=== PATIENT | male | born 1975 | race Hispanic/Latino ===

== ENCOUNTER 2018-02-09 20:34 | Emergency (ER) | payer OTHER ==
[~2018-02-09] VITALS: Ht 162.6 cm; Wt 84.4 kg
[2018-02-09] MEDS ORDERED: DILTIAZEM HCL 5 MG/ML 5 ML VIAL IV ONE (21:00)
[2018-02-09] MEDS ORDERED: VITAMIN D1000 UNI1 PO (21:48)
[2018-02-09] MEDS ORDERED: LEVETIRACETAM500 MG PO (21:48)
[2018-02-09] MEDS ORDERED: DIGOXIN125 MCG PO (21:48)
[2018-02-09] MEDS ORDERED: ASPIRIN81 MG PO (21:48)
[2018-02-09] MEDS ORDERED: ATORVASTATIN CA20 MG PO (21:48)
[2018-02-09] MEDS ORDERED: ENTRESTO PO (21:48)
--- NOTE | 2018-02-09 22:51 | Diagnostic Imaging Report ---
EXAMINATION: CXR 1 W - [facility] INDICATION: Dizziness since morning COMPARISON: None FINDINGS: TUBES and LINES: AICD is intact. LUNGS: Lungs are not well inflated. Lungs are clear. There is no evidence of pneumonia or pulmonary edema. PLEURA: No pleural effusion or pneumothorax. HEART AND MEDIASTINUM: The cardiomediastinal silhouette is unremarkable. BONES AND SOFT TISSUES: No acute osseous lesion. Soft tissues are unremarkable. UPPER ABDOMEN: No free air under the diaphragm. IMPRESSION: No acute thoracic abnormality. Signed by: Dr. Harshad Callejas M.D. on 02/09/2018 10:48 PM
--- OUTSIDE RECORDS SUMMARY | 2018-02-18 11:49 | XMS REPORT | Clinical Summary ---
Author Author AMALIA [facility] Address Unknown Phone Unavailable Care Team Providers Care Blender Helper Name Role Phone PCP Unavailable Allergies No Known Allergies Current Medications Prescription Sig. Disp. Refills Start End Date Status Date digoxin (LANOXIN) 0.125 Take 125 mcg by mouth Active MG tablet nightly. atorvastatin (LIPITOR) 80 Take 1 tablet (80 mg 0 12/13/19 12/13/19 Active MG tablet total) by mouth nightly. 18 19 levETIRAcetam (KEPPRA) Take 1 tablet (1,000 mg 0 12/13/19 12/13/19 Active 1000 MG tablet total) by mouth 2 (two) 18 19 times daily. sacubitril-valsartan Take 0.5 tablets by mouth 0 12/13/19 Active (ENTRESTO) 24-26 mg Tab 2 (two) times daily. 18 lactulose (CHRONULAC) 20 Take 15 mLs (10 g total) 0 12/14/19 Active gram/30 mL solution by mouth 3 (three) times 18 daily as needed. amiodarone (PACERONE) 200 Take 1 tablet (200 mg 30 tablet 0 02/18/20 02/18/20 Active MG tablet total) by mouth 2 (two) 18 19 times daily. apixaban (ELIQUIS) 2.5 mg Take 1 tablet (2.5 mg 60 tablet 0 02/21/20 03/23/20 Active Tab tablet total) by mouth 2 (two) 18 18 times daily for 30 days. metoprolol (TOPROL-XL) 50 Take 50 mg by mouth daily 12/13/19 Discontin MG 24 hr tablet 25mg in the morning and 18 ued 50mg at night. . sacubitril-valsartan Take 1 tablet by mouth 2 12/13/19 Discontin (ENTRESTO) 97-103 mg Tab (two) times daily. 18 ued aspirin 81 MG EC tablet Take 81 mg by mouth 02/18/20 Discontin daily. 18 ued mINOCYCLine Take 1 capsule (100 mg 10 capsule 0 11/15/19 11/20/19 (MINOCIN,DYNACIN) 100 MG total) by mouth every 12 18 18 capsule (twelve) hours for 5 days. acetaminophen-codeine Take 1 tablet by mouth 15 tablet 0 11/15/19 11/20/19 (TYLENOL #4) 300-60 mg every 4 (four) hours as 18 18 per tablet needed for Pain for up to 5 days. Max Daily Amount: 6 tablets aluminum & magnesium Take 30 mLs by mouth 355 mL 0 12/13/19 12/23/19 hydroxide-simethicone every 4 (four) hours as 18 18 (MAALOX PLUS) 400-400-40 needed for Indigestion mg/5 mL suspension for up to 10 days. bisacodyl (DULCOLAX) 5 mg Take 2 tablets (10 mg 30 tablet 0 12/13/19 01/12/20 EC tablet total) by mouth daily as 18 18 needed for Constipation for up to 30 days. docusate sodium (COLACE) Take 1 capsule (100 mg 10 capsule 0 12/13/19 12/23/19 100 MG capsule total) by mouth 2 (two) 18 18 times daily for 10 days. fluticasone (FLONASE) 50 1 spray by Nasal route 9.9 mL 0 12/14/19 02/16/20 Discontin mcg/actuation nasal spray daily. 18 18 ued HYDROcodone-acetaminophen Take 1 tablet by mouth 30 tablet 0 12/13/19 12/23/19 (NORCO 5-325) 5-325 mg every 4 (four) hours as 18 18 per tablet needed for up to 10 days. Max Daily Amount: 6 tablets polyethylene glycol Take 17 g by mouth daily 14 each 0 12/14/19 12/17/19 (GLYCOLAX) 17 gram packet for 3 days. 18 18 metoprolol (TOPROL-XL) 25 Take 1 tablet (25 mg 30 tablet 0 02/18/20 02/18/20 Discontin MG 24 hr tablet total) by mouth 2 (two) 18 18 ued times daily. Active Problems Problem Noted Date Paroxysmal atrial fibrillation ([facility]) 02/11/2018 Atrial flutter with rapid ventricular response ([facility]) 02/10/2018 Personal history of cerebrovascular accident with current residual effects 02/10/2018 Demand ischemia of myocardium ([facility]) 02/10/2018 Heart failure ([facility]) 02/09/2018 Seizure ([facility]) 12/05/2017 Chronic combined systolic and diastolic heart failure ([facility]) 12/05/2017 Obesity (BMI 30.0-34.9) 12/05/2017 Cerebral edema ([facility]) 11/29/2017 Non-ischemic cardiomyopathy ([facility]) 11/29/2017 Acute on chronic combined systolic and diastolic congestive heart failure 11/29/2017 ([facility]) Cerebrovascular accident (CVA) due to thrombosis of right middle cerebral 11/28/2017 artery ([facility]) Cardiomyopathy ([facility]) 11/13/2017 Resolved Problems Problem Noted Date Resolved Date Dysphagia 12/05/2017 02/10/2018 Hypokalemia 12/05/2017 02/10/2018 Acute ischemic stroke ([facility]) 11/29/2017 02/10/2018 Received tissue plasminogen activator (t-PA) less than 24 hours prior to 11/29/2017 02/10/2018 arrival Respiratory failure requiring intubation ([facility]) 11/29/2017 02/10/2018 Encounters Date Type Specialty Care Team Description 02/14/2018 Procedure Pass 02/14/2018 Surgery Michael Colon MD CRANIOPLASTY 02/13/2018 Anesthesia Avery Black MD Event 02/12/2018 Outside Orders Vianey Jensen, [employer]E CLASSIFIER TENDER, JOHNSON (obstructive sleep EDUCATIONAL/DEVELOPMENT ASSISTANT apnea) (Primary Dx);History of ischemic right MCA stroke 02/10/2018 Orders Only General Internal Medicine 02/09/2018 Hospital Intensive Care Ramin Rao MD Acute ischemic stroke - Encounter Larry, ([facility]);Acute on chronic 02/17/2018 MD Francine combined systolic and Nehemias Natarajan MD diastolic congestive heart failure ([facility]);Atrial flutter with rapid ventricular response ([facility]);Cerebral edema ([facility]);Cerebrovascular accident (CVA) due to thrombosis of right middle cerebral artery (HCC);Chronic combined systolic and diastolic heart failure (HCC);Demand ischemia of myocardium (HCC) 02/01/2018 [facility] Lucita Patel MD History of ischemic right Encounter MCA stroke 01/14/2018 Outside Orders Vianey Jensen, [employer]E CLASSIFIER TENDER, History of ischemic right EDUCATIONAL/DEVELOPMENT ASSISTANT MCA stroke (Primary Dx);JOHNSON (obstructive sleep apnea);Snoring 01/13/2018 Outside Orders Siddhartha Hernandez, [employer]E CLASSIFIER TENDER, EDUCATIONAL/DEVELOPMENT ASSISTANT History of ischemic right MCA stroke (Primary Dx) 11/28/2017 [facility] General Internal Medicine Demario Hopkins MD Cerebrovascular accident - Encounter Carmelo Flowers (CVA) due to thrombosis 12/13/2017 MD Braydon of right middle cerebral JovaniMagalie MD artery (HCC) (Primary Priscila Gonsalves MD Dx);Acute ischemic stroke Sami Christian (HCC);Acute on chronic MD Timo combined systolic and diastolic congestive heart failure (HCC);Cerebral edema (HCC);Non-ischemic cardiomyopathy (HCC);Received tissue plasminogen activator (t-PA) less than 24 hours prior to arrival;Respiratory failure requiring intubation (HCC);Dilated cardiomyopathy (HCC) 11/28/2017 Anesthesia Abby Echevarria MD Event 11/28/2017 Procedure Pass 11/28/2017 Surgery Michael Colon MD CRANIOTOMY 11/28/2017 Anesthesia Samira Dallas MD Event 11/28/2017 Procedure Pass 11/28/2017 Surgery Virtual, Surgeon PROCEDURE DONE OUTSIDE OR 11/13/2017 [facility] Cardiology Kathy Crooks Peripartum cardiomyopathy - Encounter MD Tresa 11/14/2017 11/13/2017 Orders Only General Internal Medicine 11/13/2017 Procedure Pass 11/13/2017 Surgery Kathy Crooks AICD GENERATOR & LEADS - MD Tresa INSERTION W/ GENERAL ANESTHESIA (SING/DUAL/MULT) 07/09/2017 [facility] Radiology Teja Nesbitt MD Acute on chronic combined Encounter systolic and diastolic heart failure (HCC) 06/25/2017 Outside Orders Central Scheduling Ramin Rao MD Acute on chronic combined systolic and diastolic heart failure (HCC) (Primary Dx) after 02/08/2017 Social History Tobacco Use Types Packs/Day Years Used Date Former Smoker Smokeless Tobacco: Never Used Tobacco Cessation: Ready to Quit: No Alcohol Use Drinks/Week oz/Week Comments Yes Sex Assigned at Date Recorded Not on file Last Filed Vital Signs Vital Sign Reading Time Taken Blood Pressure 90/54 02/17/2018 3:00 PM CDT Pulse 65 02/17/2018 3:22 PM CDT Temperature 36.9 C (98.4 F) 02/17/2018 12:00 PM CDT Respiratory Rate 20 02/17/2018 3:22 PM CDT Oxygen Saturation 98% 02/17/2018 3:22 PM CDT Inhaled Oxygen - - Concentration Weight 85.8 kg (189 lb 2.5 oz) 02/14/2018 1:35 PM CDT Height 162.6 cm (5' 4") 02/14/2018 1:35 PM CDT Body Mass Index 32.47 02/14/2018 1:35 PM CDT Plan of Treatment Not on file Implants Implanted Type Area Leather Production Artisan Device Expiration Model / Identifier Date Serial / Lot Mik Wilkinson Full Strlprep 10ml Cement/Ibrahima Right: GATES:BIOSCI 04/22/2019 [id number] / [id number] - [id number] ler/Adhesi Head / Implanted: Qty: 1 on 11/28/2017 by festus [id number] Michael Colon MD Flseal Vhsd Full Strlprep 10ml Cement/Ibrahima Right: GATES:BIOSCI 07/16/2019 [id number] / [id number] - [id number] ler/Adhesi Head / Implanted: Qty: 1 on 02/14/2018 by ve [id number] Michael Colon MD Lead Kendrick [place] Af Df4 59cm 0292 Defibrilla GUIDANT:CARDIAC 09/07/2019 0292 / - [id number] tors RHYTHM MGMT [id number] / Implanted: Qty: 1 on 11/13/2017 by [id number] Kathy Crooks MD Plt Str Un3 2h W/Tab [id number] - Fracture/F Right: GAB:CRANIOM 53- 70572 / [id number] ixation Head AXILLOFACIAL / Implanted: Qty: 1 on 02/14/2018 by Michael Colon MD Cvr Bur Hole Lp 20mm W/Tab [id number] Fracture/F Right: GAB:GAB [id number] / - [id number] ixation Head LEIBINGER / Implanted: Qty: 1 on 02/14/2018 by Michael Colon MD Cvr Bur Hole Lp 14mm W/Tab [id number] Fracture/F Right: GAB:GAB [id number] / - [id number] ixation Head LEIBINGER / Implanted: Qty: 1 on 02/14/2018 by Michael Colon MD Plt Rect Un3 [id number] - [id number] Fracture/F Right: GAB:CRANIOM 53- [id number] / Implanted: Qty: 1 on 02/14/2018 by ixation Head AXILLOFACIAL / Michael Colon MD Plt Rigid Str Un3 2h [id number] - Fracture/F Right: GAB:CRANIOM 53- 98474 / [id number] ixation Head AXILLOFACIAL / Implanted: Qty: 1 on 02/14/2018 by Michael Colon MD Scr Un3 Temple Self Drl 1.5x4mm Fracture/F Right: GAB:CRANIOM 56-97274 / [id number] - [id number] ixation Head AXILLOFACIAL / Implanted: Qty: 16 on 02/14/2018 by Michael Colon MD Grft Dura Cllgn Duragn 4x5in Neuro Right: INTEGRA 01/04/2020 [id number] / Id-4501 - [id number] Head LIFESCI:NEURO / Implanted: Qty: 1 on 11/28/2017 by [id number] Michael Colon MD Sheet Faith Imp 6x8in [id number] - Neuro Right: BENTEC MED 04/04/2022 [id number] Head N / Implanted: Qty: 1 on 11/28/2017 by / Michael Colon MD [id number] Acuity X4 Spiral S Pacemaker CALDWELL 03/11/2019 4674 / Implanted: Qty: 1 on 11/13/2017 by Lead SCIENTIFIC [id number] / Kathy Crooks MD [id number] Ld Pacing Ingevity Active 45 7740 Pacemaker CALDWELL 10/01/2019 7740 / - [id number] Lead SCI:CARDIAC [id number] / Implanted: Qty: 1 on 11/13/2017 by RHYTHM MNGT [id number] Kathy Crooks MD Dynagen X4 Lime Vat Tender-D CALDWELL 07/30/2019 G158 / Implanted: Qty: 1 on 11/13/2017 by SCIENTIFIC [id number] / Kathy Crooks MD [id number] Explanted Type Area Leather Production Artisan Device Expiration Model / Identifier Date Serial / Lot Cvr Bur Hole Lp 14mm W/Tab [id number] Fracture/F Right: GAB:GAB [id number] / - [id number] ixation Head LEIBINGER / Explanted: Qty: 1 on 02/14/2018 by Michael Colon MD Procedures Procedure Name Priority Date/Time Associated Diagnosis Comments CRANIOPLASTY 02/14/2018 S/P craniotomy 10:00 AM CDT Case Notes REQ 3 HOURS Special Needs (MICROSCOP E, C-ARM, STEALTH) CRITICAL CARE Routine 11/30/2017 Results for this 12:08 PM CDT procedure are in the results section. CRANIOTOMY 11/28/2017 Acute right MCA stroke 11:45 PM CDT (HCC) PROCEDURE DONE OUTSIDE OR 11/28/2017 Cerebrovascular accident 5:06 PM CDT (CVA), unspecified mechanism (HCC) AICD GENERATOR & LEADS - 11/13/2017 Eosinophilic myocarditis INSERTION W/ GENERAL 7:30 AM CDT ANESTHESIA (SING/DUAL/MULT) Case Notes 1CASE POP6 AICD GENTERATOR /LEADS INSERTION NO ANESTHESIA BIV Special Needs MAGGIE /BERYL after 02/08/2017 Results * CBC with platelet count + automated diff (02/17/2018 4:20 AM) Only the most recent of 16 results within the time period is included. Component Value Ref Range WBC 11.3 (H) 3.5 - 10.5 K/L RBC 4.35 (L) 4.63 - 6.08 M/L Hemoglobin 12.7 (L) 13.7 - 17.5 GM/DL Hematocrit 38.7 (L) 40.1 - 51.0 % MCV 89.0 79.0 - 92.2 fL MCH 29.2 25.7 - 32.2 pg MCHC 32.8 32.3 - 36.5 GM/DL RDW 12.3 11.6 - 14.4 % Platelets 274 150 - 450 K/CU MM MPV 9.7 9.4 - 12.4 fL nRBC 0 0 - 0 /100 WBC % Neutros 62 % % Lymphs 28 % % Monos 8 % % Eos 2 % % Baso 0 % # Neutros 6.98 (H) 1.78 - 5.38 K/L # Lymphs 3.10 1.32 - 3.57 K/L # Monos 0.91 (H) 0.30 - 0.82 K/L # Eos 0.23 0.04 - 0.54 K/L # Baso 0.03 0.01 - 0.08 K/L Immature 0 0 - 1 % Granulocytes-Relative Specimen Performing Laboratory Blood - Arm, [place] [address] * CBC with platelet count + automated diff (02/17/2018 4:20 AM) Only the most recent of 16 results within the time period is included. Specimen Performing Laboratory Blood Narrative The following orders were created for panel order CBC with platelet count + automated diff. Procedure Abnormality Status --------- ------ CBC with platelet count ...[[id number]]AbnormalFinal result Please view results for these tests on the individual orders. * Magnesium (02/17/2018 4:20 AM) Only the most recent of 13 results within the time period is included. Component Value Ref Range Magnesium 2.2 1.6 - 2.6 mg/dL Specimen Performing Laboratory Blood - Arm, [place] [address] * Basic Metabolic Panel (02/17/2018 4:20 AM) Only the most recent of 36 results within the time period is included. Component Value Ref Range Sodium 139 136 - 145 meq/L Potassium 3.8 3.5 - 5.1 meq/L Chloride 102 98 - 107 meq/L CO2 30 (H) 22 - 29 meq/L BUN 10 7 - 21 mg/dL Creatinine 0.84 0.57 - 1.25 mg/dL Glucose 99 70 - 105 mg/dL Calcium 9.1 8.4 - 10.2 mg/dL EGFR 100Comment: ESTIMATED GFR IS NOT ACCURATE mL/min/1.73 sq m CREATININE CLEARANCE IN PREDICTING GLOMERULAR FILTRATION RATE. ESTIMATED GFR IS NOT APPLICABLE FOR DIALYSIS PATIENTS. Specimen Performing Laboratory Blood - Arm, Right [address] [address] * Phosphorus (02/16/2018 3:16 AM) Only the most recent of 4 results within the time period is included. Component Value Ref Range Phosphorus 4.0 2.3 - 4.7 mg/dL Specimen Performing Laboratory Blood - Arm, Left [address] [address] * TRANSFUSION SERVICE REPORT - SCAN (02/15/2018 5:41 PM) Only the most recent of 4 results within the time period is included. * CT brain without IV contrast portable (02/15/2018 12:12 PM) Only the most recent of 3 results within the time period is included. Specimen Performing Laboratory GE RIS Narrative FINAL REPORT CT head without contrast INDICATION: Postop TECHNIQUE: Contiguous axial images through the head without contrast on the portable CT unit. This exam was performed according to our departmental dose optimization program which includes automated exposure control, adjustment of the mA and/or kV according to patient size and/or use of iterative reconstruction technique. COMPARISON: CT head 02/13/2018 FINDINGS: There has been replacement of a right craniectomy bone plate with a hemorrhagic extra axial collection beneath the bone plate measuring up to 7 mm and small foci of gas. A large chronic right MCA territory infarct is present. Please note that CT is insensitive for early or small infarcts. There is no hydrocephalus or midline shift. The visualized sinuses and mastoid air cells are well aerated. There are chronic nasal bone fractures. There is right sided scalp swelling with a soft tissue drain but no significant subgaleal fluid currently. IMPRESSION: Since 02/13/2018, interval craniectomy bone plate replacement with a subjacent hemorrhagic extra axial collection, but no worrisome current mass effect. Findings discussed with Dr. Carrizales (neurology ICU) at 1:17 PM Signed: Maty Hobbs MD Report Verified Date/Time:02/15/2018 13:18:32 Reading Location: [facility] C013 Neuro Reading Room Procedure Note Interface, External Ris In - 02/15/2018 1:20 PM CDT FINAL REPORT CT head without contrast INDICATION: Postop TECHNIQUE: Contiguous axial images through the head without contrast on the portable CT unit. This exam was performed according to our departmental dose optimization program which includes automated exposure control, adjustment of the mA and/or kV according to patient size and/or use of iterative reconstruction technique. COMPARISON: CT head 02/13/2018 FINDINGS: There has been replacement of a right craniectomy bone plate with a hemorrhagic extra axial collection beneath the bone plate measuring up to 7 mm and small foci of gas. A large chronic right MCA territory infarct is present. Please note that CT is insensitive for early or small infarcts. There is no hydrocephalus or midline shift. The visualized sinuses and mastoid air cells are well aerated. There are chronic nasal bone fractures. There is right sided scalp swelling with a soft tissue drain but no significant subgaleal fluid currently. IMPRESSION: Since 02/13/2018, interval craniectomy bone plate replacement with a subjacent hemorrhagic extra axial collection, but no worrisome current mass effect. Findings discussed with Dr. Carrizales (neurology ICU) at 1:17 PM Signed: Maty Hobbs MD Report Verified Date/Time: 02/15/2018 13:18:32 Reading Location: [address] Neuro Reading Room * CBC (Hemogram only) (02/15/2018 3:57 AM) Only the most recent of 4 results within the time period is included. Component Value Ref Range WBC 13.2 (H) 3.5 - 10.5 K/L RBC 4.43 (L) 4.63 - 6.08 M/L Hemoglobin 13.2 (L) 13.7 - 17.5 GM/DL Hematocrit 38.9 (L) 40.1 - 51.0 % MCV 87.8 79.0 - 92.2 fL MCH 29.8 25.7 - 32.2 pg MCHC 33.9 32.3 - 36.5 GM/DL RDW 12.0 11.6 - 14.4 % Platelets 275 150 - 450 K/CU MM MPV 10.1 9.4 - 12.4 fL nRBC 0 0 - 0 /100 WBC Specimen Performing Laboratory Blood [address] [address] * Prepare Leuko-Red PLT (02/14/2018 11:54 PM) Component Value Ref Range Unit ABO A Pos UNIT NUMBER [id number] Status TRANSFUSED Blood Bank Product PLATELETS PRODUCT CODE [id number] Specimen Performing Laboratory Blood SAFETRACE [place] * Surgically obtained culture + gram stain (02/14/2018 11:12 AM) Only the most recent of 2 results within the time period is included. Component Value Ref Range Result No growth Gram Stain Result No White blood cells seen Gram Stain Result No organisms seen Specimen Performing Laboratory Other - Head [address] [address] * SPIN/CONCENTRATION CHARGE (02/14/2018 11:12 AM) Component Value Ref Range Concentration charged Done Specimen Performing Laboratory Other - Head [address] [address] * aPTT (02/14/2018 4:46 AM) Only the most recent of 4 results within the time period is included. Component Value Ref Range PTT 28.7 22.5 - 36.0 seconds Specimen Performing Laboratory Blood - Arm, [address] [address] * Prothrombin time/INR (02/14/2018 4:46 AM) Only the most recent of 5 results within the time period is included. Component Value Ref Range Protime 13.9 11.7 - 14.7 seconds INR 1.1 <=5.9 Specimen Performing Laboratory Blood - Arm, [address] [address] Narrative RECOMMENDED COUMADIN/WARFARIN INR THERAPY RANGES STANDARD DOSE: 2.0 - 3.0 Includes: PROPHYLAXIS for venous thrombosis, systemic embolization; TREATMENT for venous thrombosis and/or pulmonary embolus. HIGH RISK: Target INR is 2.5-3.5 for patients with mechanical heart valves. * Transfuse Leuko-Red PLT (02/13/2018 7:54 PM) Only the most recent of 2 results within the time period is included. * CT brain without IV contrast (02/13/2018 5:16 PM) Specimen Performing Laboratory GE RIS Narrative FINAL REPORT CT head without contrast 02/13/2018 5:24 PM CLINICAL HISTORY: preop - cranioplasty TECHNIQUE: Axial noncontrast CT images through the head were obtained. This examination was performed according to our departmental dose optimization program, which includes automated exposure control, adjustment of the mA and/or kV according to patient size, and/or use of iterated reconstruction technique. COMPARISON: 11/29/2017 FINDINGS: There is a now chronic large volume right middle cerebral artery distribution infarction without mass effect. There is no overlying decompressive craniectomy with associated nonhemorrhagic subgaleal collection. There is no hemorrhage, mass, hydrocephalus, concerning subdural collection, or midline shift. The visualized paranasal sinuses and tympanomastoid cavities are well-aerated. There are chronic bilateral nasal bone fracture deformities. IMPRESSION: No intracranial hemorrhage or mass effect. Chronic appearing ischemic and postsurgical changes. If concern for acute pathology persists, further evaluation with MRI is recommended. Signed: Tae Olivares MD Report Verified Date/Time:02/13/2018 17:25:16 Reading Location: [facility] Radiology Reading Room Procedure Note Interface, External Ris In - 02/13/2018 5:27 PM CDT FINAL REPORT CT head without contrast 02/13/2018 5:24 PM CLINICAL HISTORY: preop - cranioplasty TECHNIQUE: Axial noncontrast CT images through the head were obtained. This examination was performed according to our departmental dose optimization program, which includes automated exposure control, adjustment of the mA and/or kV according to patient size, and/or use of iterated reconstruction technique. COMPARISON: 11/29/2017 FINDINGS: There is a now chronic large volume right middle cerebral artery distribution infarction without mass effect. There is no overlying decompressive craniectomy with associated nonhemorrhagic subgaleal collection. There is no hemorrhage, mass, hydrocephalus, concerning subdural collection, or midline shift. The visualized paranasal sinuses and tympanomastoid cavities are well-aerated. There are chronic bilateral nasal bone fracture deformities. IMPRESSION: No intracranial hemorrhage or mass effect. Chronic appearing ischemic and postsurgical changes. If concern for acute pathology persists, further evaluation with MRI is recommended. Signed: Tae Olivares MD Report Verified Date/Time: 02/13/2018 17:25:16 Reading Location: [facility] Radiology Reading Room * POLYSOMNOGRAPHY REPORT - SCAN (02/13/2018 10:11 AM) Only the most recent of 2 results within the time period is included. * Type and screen, automated (02/13/2018 4:55 AM) Only the most recent of 2 results within the time period is included. Component Value Ref Range ABO/RH AUTOMATED (BEAKER) A POSITIVE Ab Scrn NEGATIVE Specimen Performing Laboratory Blood - Arm, Right [address] [address] * ECHOCARDIOGRAM REPORT - SCAN (02/12/2018 6:20 PM) Only the most recent of 2 results within the time period is included. * 2D Echo W/Doppler(CW/PW/Color) (02/12/2018 11:40 AM) Only the most recent of 2 results within the time period is included. 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 Clinical History CARDIAC CATH, CHF, AICD 11/13/17 Height: 64 inches Weight: 81.19 kg (179 lbs) BSA: 1.87 m^2 BMI: 30.72 kg/m^2 HR: 60 bpm BP: 98/55 mmHg Summary 1. The following segment(s) appear severely hypokinetic: inferoseptal, inferior and inferolateral LVEF by Garvin's method of disk assessment is -moderately reduced (30-35%) . 2. The right ventricular chamber size and systolic function are within normal limits. RV pacing wire is visualized . Previous Study In comparison with the prior exam 11/28/2017 no significant change. Signature Findings Left Ventricle The left ventricle is chamber size (by PSLAX dimension) is normal (male - LVIDd 4.2-5.8cm) . LV septal thickness is mildly increased (1.2-1.4cm). All of the LV segments are moderately hypokinetic . The following segment(s) appear severely hypokinetic: inferoseptal, inferior and inferolateral LV diastolic function is indeterminate. LVEF by Garvin's method of disk assessment is -moderately reduced (30-35%) . Left AtriumLA size is normal (16-34 ml/m2) . Right VentricleThe right ventricular chamber size and systolic function are within normal limits. RV pacing wire is visualized . Right Atrium RA size is normal. RA pacing wire is visualized . Aortic Valve Mild AoV cusp calcification. Mitral Valve Mild MV leaflet thickening. Mild mitral annular calcification. Mild mitral regurgitation. Tricuspid ValveMild tricuspid regurgitation. Estimated peak systolic PA pressure is cannot be determined due to inadequate TR velocity signal . Pulmonic Valve Normal PV structure and function by limited views and Doppler. Mild pulmonary regurgitation. AortaAortic root size (SInus of Valsalva diameter) is normal . PericardiumA small pericardial effusion is present . (posterior to LV) IVC/SVC/PA/PV/PleuralThe estimated RA pressure by IVC dynamics 5mmHg . Chambers/Structures Left Atrium LA Volume: 45.7 mlLA Area: 18.69 cm^2 LA Vol. Index: 24 ml/m^2 Left Ventricle LVIDd: 5.59 cm LVIDs: 4.42 cm LV Septum Diastolic: 1.33 cm LV PW Diastolic: 0.9 cm LV FS: 20.9 % LVEDV Garvin's:109.89 ml LVEDVI: 59 ml/m^2 LVOT Diameter: 2.44 cm Aorta Ao Root S of Ava.: 2.76 cm Doppler/Quantitative Measurements Mitral Valve MV Geremias. Peak: Tissue Doppler E' Septal Velocity: 0.03 m/s E' Lateral Velocity: 0.04 m/s LVOT Peak Velocity: 0.75 m/s Peak Gradient: 2.23 mmHg Mean Velocity: 0.54 m/s Mean Gradient: 1.33 mmHg LVOT Diameter: 2.44 cmLVOT VTI: 14.03 cm LVOT Area: 4.68 cm^2LVOT SV:65.57 ml LVOT CO: 3.93 l/min LVOT CI: 2.1 l/min/m^2 Procedure Note Interface, External Ris In - 02/12/2018 5:35 PM CDT Transthoracic Echocardiography Report (TTE) Demographics Patient Name BRENNEN JEFFERS Date of Study 02/12/2018 Gender Male Visit Number [id number] Race Unknown Room Number 2251 Number Date of 1975 Referring Physician Age 42 year(s) [employer] 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 Clinical History CARDIAC CATH, CHF, AICD 11/13/17 Height: 64 inches Weight: 81.19 kg (179 lbs) BSA: 1.87 m^2 BMI: 30.72 kg/m^2 HR: 60 bpm BP: 98/55 mmHg Summary 1. The following segment(s) appear severely hypokinetic: inferoseptal, inferior and inferolateral LVEF by Garvin's method of disk assessment is -moderately reduced (30-35%) . 2. The right ventricular chamber size and systolic function are within normal limits. RV pacing wire is visualized . Previous Study In comparison with the prior exam 11/28/2017 no significant change. Signature Findings Left Ventricle The left ventricle is chamber size (by PSLAX dimension) is normal (male - LVIDd 4.2-5.8cm) . LV septal thickness is mildly increased (1.2-1.4cm). All of the LV segments are moderately hypokinetic . The following segment(s) appear severely hypokinetic: inferoseptal, inferior and inferolateral LV diastolic function is indeterminate. LVEF by Garvin's method of disk assessment is -moderately reduced (30-35%) . Left Atrium LA size is normal (16-34 ml/m2) . Right Ventricle The right ventricular chamber size and systolic function are within normal limits. RV pacing wire is visualized . Right Atrium RA size is normal. RA pacing wire is visualized . Aortic Valve Mild AoV cusp calcification. Mitral Valve Mild MV leaflet thickening. Mild mitral annular calcification. Mild mitral regurgitation. Tricuspid Valve Mild tricuspid regurgitation. Estimated peak systolic PA pressure is cannot be determined due to inadequate TR velocity signal . Pulmonic Valve Normal PV structure and function by limited views and Doppler. Mild pulmonary regurgitation. Aorta Aortic root size (SInus of Valsalva diameter) is normal . Pericardium A small pericardial effusion is present . (posterior to LV) IVC/SVC/PA/PV/Pleural The estimated RA pressure by IVC dynamics 5mmHg . Chambers/Structures Left Atrium LA Volume: 45.7 ml LA Area: 18.69 cm^2 LA Vol. Index: 24 ml/m^2 Left Ventricle LVIDd: 5.59 cm LVIDs: 4.42 cm LV Septum Diastolic: 1.33 cm LV PW Diastolic: 0.9 cm LV FS: 20.9 % LVEDV Garvin's:109.89 ml LVEDVI: 59 ml/m^2 LVOT Diameter: 2.44 cm Aorta Ao Root S of Ava.: 2.76 cm Doppler/Quantitative Measurements Mitral Valve MV Geremias. Peak: Tissue Doppler E' Septal Velocity: 0.03 m/s E' Lateral Velocity: 0.04 m/s LVOT Peak Velocity: 0.75 m/s Peak Gradient: 2.23 mmHg Mean Velocity: 0.54 m/s Mean Gradient: 1.33 mmHg LVOT Diameter: 2.44 cm LVOT VTI: 14.03 cm LVOT Area: 4.68 cm^2 LVOT SV:65.57 ml LVOT CO: 3.93 l/min LVOT CI: 2.1 l/min/m^2 * Troponin I (02/10/2018 7:38 AM) Only the most recent of 7 results within the time period is included. Component Value Ref Range Troponin I 0.78 (HH) 0.00 - 0.03 ng/mL Specimen [place] [address] Narrative Troponin I (TnI) levels must be interpreted in the context of the presenting symptoms and the clinical findings. Elevated TnI levels indicate myocardial damage, but are not specific for ischemic heart disease. Elevated TnI levels are seen in patients with other cardiac conditions (including myocarditis and congestive heart failure), and slight TnI elevations occur in patients with other conditions, including sepsis, renal failure, acidosis, acute neurological disease, and persistent tachyarrhythmia. * XR chest 1 view portable / bedside (02/10/2018 1:46 AM) Only the most recent of 11 results within the time period is included. Specimen Performing Laboratory RIS Narrative FINAL REPORT Chest, 1 view. History: Chest pain Comparison: The The chest, 12/08/2017.. Impression: The cardiomediastinal silhouette and pulmonary vasculature are within normal limits for a portable exam. Left chest wall pacer device with leads overlying the right atrium, right ventricle and coronary sinus. Minimal left basilar discoid atelectasis. Otherwise the lungs are clear without evidence of consolidation or effusion.The soft tissues and osseous structures are intact. Signed: Winsome Reina MD Report Verified Date/Time:02/10/2018 02:01:21 Reading Location: [facility] C013 Transitional Reading Room Procedure Note Interface, External Ris In - 02/10/2018 2:03 AM CDT FINAL REPORT Chest, 1 view. History: Chest pain Comparison: The The chest, 12/08/2017.. Impression: The cardiomediastinal silhouette and pulmonary vasculature are within normal limits for a portable exam. Left chest wall pacer device with leads overlying the right atrium, right ventricle and coronary sinus. Minimal left basilar discoid atelectasis. Otherwise the lungs are clear without evidence of consolidation or effusion. The soft tissues and osseous structures are intact. Signed: Winsome Reina MD Report Verified Date/Time: 02/10/2018 02:01:21 Reading Location: [facility] Transitional Reading Room * Levetiracetam level (02/10/2018 1:16 AM) Component Value Ref Range Levetiracetam 20.5 mcg/mL Comment: Therapeutic Levels: Drug Dosage Trough (mcg/mL) Peak (mcg/mL) 500 mg BID3.1 - 10.0 10.0 - 25.0 1000 mg BID 4.9 - 37.1 30.0 - 40.0 1500 mg BID 7.0 - 34.0 36.1 - 70.0 Toxic level not established This test was developed and its analytical performance characteristics have been determined by [facility]. It has not been cleared or approved by the US Food and Drug Administration. This assay has been validated pursuant to the CLIA regulations and is used for clinical purposes. For additional information, please refer to http://education.[employer].Enabled Employment/faq/DWA239 (This link is being provided for informational/educational purposes only.) Specimen Performing Laboratory Blood [facility] [address] [place] [address] Narrative Performing Lab *SPL HOSTING [facility], [address] [place] [address] Rica Ferguson MD, PhD * Digoxin level (02/10/2018 1:16 AM) Only the most recent of 2 results within the time period is included. Component Value Ref Range Digoxin Lvl <0.3 (L) 0.8 - 2.0 ng/mL Specimen Performing Laboratory Blood [place] [id number] * ECG 12 lead (02/10/2018 12:20 AM) Only the most recent of 7 results within the time period is included. Specimen Performing Laboratory GE MUSE Narrative Ventricular Rate 66 BPM Atrial Rate 66 BPM P-R Interval 212 ms QRS Duration 182 ms Q-T Interval 458 ms QTC Calculation(Bazett) 480 ms P [place] 53 degrees R [place] 128 degrees T [place] 63 degrees Electronic ventricular pacemaker When compared with ECG of 30-NOV-2017 09:04, Vent. rate has decreased BY 6 BPM Confirmed by MD HALL JOSEPH P ([id number]) on 02/10/2018 7:04:51 AM Procedure Note Interface, External Ris In - 02/10/2018 7:04 AM CDT Ventricular Rate 66 BPM Atrial Rate 66 BPM P-R Interval 212 ms QRS Duration 182 ms Q-T Interval 458 ms QTC Calculation(Bazett) 480 ms P [place] 53 degrees R [place] 128 degrees T [place] 63 degrees Electronic ventricular pacemaker When compared with ECG of 30-NOV-2017 09:04, Vent. rate has decreased BY 6 BPM Confirmed by MD HALL JOSEPH P ([id number]) on 02/10/2018 7:04:51 AM * Potassium (02/10/2018 12:20 AM) Only the most recent of 4 results within the time period is included. Component Value Ref Range Potassium 3.5 3.5 - 5.1 meq/L Specimen Performing Laboratory Blood [address] [address] * B-type Natriuretic Factor (BNP) (02/10/2018 12:20 AM) Only the most recent of 3 results within the time period is included. Component Value Ref Range BNP 276 (H) 0 - 100 pg/mL Specimen Performing Laboratory Blood [address] [address] * Comprehensive metabolic panel (02/10/2018 12:20 AM) Only the most recent of 3 results within the time period is included. Component Value Ref Range Protein, Total 6.9 6.0 - 8.3 gm/dL Albumin 4.1 3.5 - 5.0 g/dL Alkaline Phosphatase 79 40 - 150 U/L Total Bilirubin 0.7 0.2 - 1.2 mg/dL Sodium 136 136 - 145 meq/L Potassium 3.5 3.5 - 5.1 meq/L Chloride 104 98 - 107 meq/L CO2 24 22 - 29 meq/L BUN 12 7 - 21 mg/dL Creatinine 0.88 0.57 - 1.25 mg/dL Glucose 140 (H) 70 - 105 mg/dL Calcium 8.9 8.4 - 10.2 mg/dL AST 19 5 - 34 U/L ALT 21 6 - 55 U/L EGFR 95Comment: ESTIMATED GFR IS NOT ACCURATE mL/min/1.73 sq m CREATININE CLEARANCE IN PREDICTING GLOMERULAR FILTRATION RATE. ESTIMATED GFR IS NOT APPLICABLE FOR DIALYSIS PATIENTS. Specimen Performing Laboratory Blood [address] [address] * ARRYTHMIA IMPLANT REPORT - SCAN (12/16/2017 11:23 AM) Only the most recent of 2 results within the time period is included. * RHYTHM STRIP - SCAN (12/16/2017 11:22 AM) Only the most recent of 2 results within the time period is included. * POC-Glucose meter (12/13/2017 8:07 AM) Only the most recent of 24 results within the time period is included. Component Value Ref Range POC-Glucose Meter 106Comment: TESTED AT [address] 70 - 110 mg/[place] [address] Specimen Performing Laboratory Blood [address] [address] * Venous doppler arm, left (12/06/2017 1:09 PM) Component Value Ref Range Ejection Fraction Specimen Performing Laboratory [facility]CHO [facility] Impressions Left Impression 1. There is no deep venous obstruction in the jugular, subclavian, axillary, brachial, radial or ulnar veins. 2. There is no superficial venous obstruction in the cephalic or basilic veins. Conclusions Summary Venous duplex imaging and compression of the left upper extremity was performed. The veins were adequately visualized. The left venous system was patent and compressible with no evidence of thrombus. Signature Velocities are measured in cm/s ; Diameters are measured in cm Narrative PV LAB - Upper Extremities Veins Demographics Patient Name Ever JEFFERS of Study 12/06/2017 [id number] 42 Visit Number [id number] Accession Number [id number] of 1975 [facility] Room Number 2242 Physician SonographerHeather Vidhya Bella Florinda Physician , JAY Procedure Type of Study: Veins: Upper Extremities Veins, VENOUS DOPPLER ARM, LEFT. Indications for Study:Arm edema, left greater than right and Evaluate for DVT. Patient Status:Routine. Study Location:Vascular Lab. Technical Quality:Adequate visualization. Risk Factors History of Disease + +----+ + !Diagnosis!Date!Comments ! + +----+ + !History/Risk Factors:!!CHF, CVA, Obesity, Smoker, CMP ! + +----+ + Procedure Note Interface, External Ris In - 12/06/2017 5:28 PM CDT PV LAB - Upper Extremities Veins Demographics Patient Name BRENNEN JEFFERS Date of Study 12/06/2017 Age 42 Visit Number [id number] Gender Male Accession Number [id number] Date of 1975 Referring JOVANI MYRICK Room Number 2242 Physician [employer] Experimental Mechanic Vidhya Christopher T Physician MD, RPVI Procedure Type of Study: Veins: Upper Extremities Veins, VENOUS DOPPLER ARM, LEFT. Indications for Study:Arm edema, left greater than right and Evaluate for DVT. Patient Status:Routine. Study Location:Vascular Lab. Technical Quality:Adequate visualization. Risk Factors History of Disease + +----+ + !Diagnosis !Date!Comments ! + +----+ + !History/Risk Factors: ! !CHF, CVA, Obesity, Smoker, CMP ! + +----+ + Impressions Left Impression 1. There is no deep venous obstruction in the jugular, subclavian, axillary, brachial, radial or ulnar veins. 2. There is no superficial venous obstruction in the cephalic or basilic veins. Conclusions Summary Venous duplex imaging and compression of the left upper extremity was performed. The veins were adequately visualized. The left venous system was patent and compressible with no evidence of thrombus. Signature Velocities are measured in cm/s ; Diameters are measured in cm * Vitamin B12 and Folate (12/06/2017 5:37 AM) Component Value Ref Range Vitamin B12 648 213 - 816 pg/mL Folate 11.5 >=7.0 ng/mL Specimen Performing Laboratory Blood - Arm, Left [address] [address] * Sodium lab (12/03/2017 12:03 PM) Only the most recent of 2 results within the time period is included. Component Value Ref Range Sodium 157 (H) 136 - 145 meq/L Specimen Performing Laboratory Blood - Central Venous [facility] [address] [place] [address] Narrative Draw sodium level 4 hours after hypertonic saline injection * Osmolality, serum (12/03/2017 12:03 PM) Only the most recent of 14 results within the time period is included. Component Value Ref Range Osmolality Serum 338 (H) 275 - 295 mOsm/kg Specimen Performing Laboratory Blood - Central Venous [facility] [address] [place] [address] * Phosphatidylserine Abs (IgG, IgM) (12/03/2017 9:51 AM) Component Value Ref Range Phos.Serine Ab IgG <10 U/mL Comment: <10 Negative 10-20Equivocal- Found in small percentage of the healthy population; may be reactive >20 Positive - Risk factor for thrombosis and loss PHOSPHATIDYLSERINE AB <25 U/mL (IGM) Comment: Clinical Significance: The Antiphospholipid Antibody Syndrome (APS) is a clinical pathologic correlation that includes a clinical event (e.g. thrombosis, loss, thrombocytopenia) and persistent positive Antiphospholipid Antibodies (IgM or IgG CHANCE >40 MPL/GPL, IgM or IgG anti-B2GP1 antibodies, or a Lupus Anticoagulant). The IgA isotype has been implicated in smaller studies, but have not yet been incorporated into the APS criteria. International consensus guidelines suggest waiting at least 12 weeks before retesting to confirm antibody persistence. Reference J Thromb Haemost 2006: 4; 295. <25 Negative 25-35Equivocal- Found in small percentage of the healthy population; may be reactive >35 Positive - Risk factor for thrombosis and loss For more information on this test, go to: http://education.[employer]/faq/LHQ825 Specimen Performing Laboratory Blood - Central Venous [facility] Line [address] [address] Narrative Performing Lab [facility] [address] [address] Marybel Jennings MD, PhD, MELANIE * 1:1 MIXING STUDY, NON-INCUBATED (12/03/2017 9:51 AM) Component Value Ref Range Protime 15.4 (H) 11.7 - 14.7 seconds PTT 32.6 22.5 - 36.0 seconds PT 1/1 Mix 14.2 11.7 - 14.7 SECS PTT 1/1 Mix 31.4 22.5 - 36.0 SECS Specimen Performing Laboratory Blood - Central Venous [facility] [address] [place], [place] * Homocysteine (12/03/2017 9:51 AM) Component Value Ref Range Homocysteine 8.1 5.1 - 15.4 umol/L Specimen Performing Laboratory Blood - Central Venous [facility] [address] [place] [address] * TSH/Free T4 If Indicated (12/03/2017 7:09 AM) Component Value Ref Range TSH 2.68 0.35 - 4.94 uIU/mL Specimen Performing Laboratory Blood [facility] [address] [address] * Venous doppler legs bilateral (12/02/2017 11:02 AM) Component Value Ref Range Ejection Fraction Specimen Performing Laboratory [facility] ECHO [facility]ART[facility] Impressions Right Impression 1. There is no deep venous obstruction in the common femoral, profunda femoral, femoral, popliteal, posterior tibial or peroneal veins. 2. There is no superficial venous obstruction in the great saphenous vein. Left Impression 1. There is no deep venous obstruction in the common femoral, profunda femoral, femoral, popliteal, posterior tibial or peroneal veins. 2. There is no superficial venous obstruction in the great saphenous vein. Conclusions Summary Venous duplex imaging and compression of the bilateral lower extremities were performed. The veins were adequately visualized. The bilateral venous systems were patent and compressible with no evidence of thrombus. The venous Doppler waveforms were phasic with respiration. Signature Velocities are measured in cm/s ; Diameters are measured in cm Narrative PV LAB - Lower Extremities DVT Study Demographics Patient Name Ever JEFFERS of Study 12/02/2017 [id number] Age 42 Visit Number [id number] of 1975 Number ReferringVenkatasubba [facility] Number [id number] Yojana LainezographBria Jeong RVTInterpretingJ. Francisco Javier Nash Physician , RPVI Procedure Type of Study: Veins: Lower Extremities DVT Study, VENOUS DOPPLER LEG, BILATERAL. Indications for Study:Evaluate for DVT. Patient Status:Routine. Study Location:Portable. Technical Quality:Adequate visualization. Risk Factors History of Disease + +----+--------+ !Diagnosis !Date!Comments! + +----+--------+ !History/Risk Factors: !!CHF ! + +----+--------+ Procedure Note Interface, External Ris In - 12/02/2017 12:42 PM CDT PV LAB - Lower Extremities DVT Study Demographics Patient Name BRENNEN JEFFERS Date of Study 12/02/2017 Age 42 Visit Number [id number] Gender Male Date of 1975 Number Referring [facility] Room Number 7407 Physician Sami [place] [employer] Experimental Mechanic Rosina Jeong T Interpreting Marcelle Nash, Physician , RPVI Procedure Type of Study: Veins: Lower Extremities DVT Study, VENOUS DOPPLER LEG, BILATERAL. Indications for Study:Evaluate for DVT. Patient Status:Routine. Study Location:Portable. Technical Quality:Adequate visualization. Risk Factors History of Disease + +----+--------+ !Diagnosis !Date!Comments! + +----+--------+ !History/Risk Factors: ! !CHF ! + +----+--------+ Impressions Right Impression 1. There is no deep venous obstruction in the common femoral, profunda femoral, femoral, popliteal, posterior tibial or peroneal veins. 2. There is no superficial venous obstruction in the great saphenous vein. Left Impression 1. There is no deep venous obstruction in the common femoral, profunda femoral, femoral, popliteal, posterior tibial or peroneal veins. 2. There is no superficial venous obstruction in the great saphenous vein. Conclusions Summary Venous duplex imaging and compression of the bilateral lower extremities were performed. The veins were adequately visualized. The bilateral venous systems were patent and compressible with no evidence of thrombus. The venous Doppler waveforms were phasic with respiration. Signature Velocities are measured in cm/s ; Diameters are measured in cm * Blood gas, arterial (12/02/2017 4:36 AM) Only the most recent of 4 results within the time period is included. Component Value Ref Range pH, Arterial 7.48 (H) 7.35 - 7.45 pCO2, Arterial 33 (L) 35 - 45 mmHg pO2, Arterial 206 (H) 80 - 90 mmHg O2 Sat, Arterial 99.5 (H) 96.0 - 97.0 % HCO3, Arterial 24 21 - 29 mmol/L Base Excess, Arterial 0.8 -2.0 - 3.0 mmol/L Patient Temperature 37.2 C FIO2 50.0 % Specimen Performing Laboratory Blood, [place] [address] * ED ECG Interpretation (11/30/2017 12:08 PM) Narrative Demario Hopkins MD 11/30/2017 12:08 PM ECG/EKG Interpretation Date/Time: 11/28/2017 1:40 PM Performed by: DEMARIO HOPKINS Authorized by: DEMARIO HOPKINS The ECG was interpreted by ED physician. The ECG is interpreted as paced. Heart rate is [address] segments normal. T waves normal. Clinical Impression: non-specific ECGECG reviewed and does not meet STEMI criteria. Patient tolerance: Patient tolerated the procedure well with no immediate complications * Critical Care (11/30/2017 12:08 PM) Narrative Demario Hopkins MD 11/30/2017 12:08 PM Critical Care Performed by: DEMARIO HOPKINS Authorized by: DEMARIO HOPKINS Total critical care time: 60 minutes Critical care time was exclusive of separately billable procedures and treating other patients and teaching time. Critical care was necessary to treat or prevent imminent or life-threatening deterioration of the following conditions: UNLOADER OPERATOR failure or compromise. Critical care was time spent personally by me on the following activities: blood draw for specimens, development of treatment plan with patient or surrogate, discussions with consultants, interpretation of cardiac output measurements, examination of patient, evaluation of patient's response to treatment, obtaining history from patient or surrogate, ordering and performing treatments and interventions, ordering and review of laboratory studies, ordering and review of radiographic studies, pulse oximetry, review of old charts and re-evaluation of patient's condition. * Urinalysis w/Microscopic + Reflex to Culture (11/30/2017 6:50 AM) Only the most recent of 2 results within the time period is included. Component Value Ref Range Color, UA [place] Clarity, UA Hazy Specific [place], UA 1.032 1.001 - 1.035 pH, UA 6.0 5.0 - 8.0 Protein, UA 100 mg/dL (A) Negative Glucose, UA Negative Negative Ketones, UA Trace (A) Negative Bilirubin, UA Negative Negative Blood, UA Large (A) Negative Nitrite, UA Negative Negative Leukocytes, UA Trace (A) Negative Urobilinogen, UA 0.2 0.2 - 1.0 mg/dL RBC, UA >182 /HPF WBC, UA 13 /HPF Mucus Rare Squam Epithel, UA <1 /HPF Specimen Source Specimen Performing Laboratory Urine - Urine, [address] [address] * Urine culture (11/30/2017 6:50 AM) Component Value Ref Range Result No growth Specimen Performing Laboratory Urine - [place], [place] [address] * Manual Differential (11/30/2017 4:13 AM) Component Value Ref Range % Neutros 85 % % Lymphs 7 % % Monos 6 % % Bands 2 0 - 10 % # Neutros 13.09 (H) 1.78 - 5.38 K/ul # Lymphs 1.08 (L) 1.32 - 3.57 K/ul # Monos 0.92 (H) 0.30 - 0.82 K/uL # Bands 0.31 0.00 - 0.80 K/uL Total Counted 100 WBC Morphology Normal Giant Platelet Present Anisocytosis 1+ few Macrocytes 1+ few Poikilocytes 1+ few Artifact Present Platelet Conc Adequate Specimen [place] [address] Narrative Received comment: User comments: Slide comments: * Prepare cryoprecipitate (11/29/2017 11:55 PM) Component Value Ref Range Unit ABO A Pos UNIT NUMBER [id number] Status TRANSFUSED Blood Bank Product CRYOPRECIPITATE PRODUCT CODE D5251T47 Unit ABO A Pos UNIT NUMBER [id number] Status TRANSFUSED Blood Bank Product CRYOPRECIPITATE PRODUCT CODE [id number] Specimen Performing Laboratory Blood [place] * Sputum Culture + Gram Stain (11/29/2017 3:25 PM) Component Value Ref Range Result No growth Gram Stain Result 4+ White blood cells seen Gram Stain Result 0-5 epithelial cells Gram Stain Result No organisms seen Specimen Performing Laboratory Sputum - Endotracheal [address] [address] * Blood culture (11/29/2017 3:24 PM) Only the most recent of 2 results within the time period is included. Component Value Ref Range Result No growth in 5 days Specimen Performing Laboratory Blood - Central Venous [facility] Line [address] [place] [address] * XR abdomen / KUB 1 view (11/29/2017 11:52 AM) Specimen Performing Laboratory GE RIS Narrative FINAL REPORT CLINICAL HISTORY: core pack TECHNIQUE: Supine abdomen IMPRESSION: The tip of the feeding tube is in the distal stomach. There is a nasogastric tube in the fundus. The partially visualized bowel gas pattern is nonspecific. Signed: Isaias Tovar MD Report Verified Date/Time:11/29/2017 13:01:44 Reading Location: [facility] Radiology Reading Room Procedure Note Interface, External Ris In - 11/29/2017 1:04 PM CDT FINAL REPORT CLINICAL HISTORY: core pack TECHNIQUE: Supine abdomen IMPRESSION: The tip of the feeding tube is in the distal stomach. There is a nasogastric tube in the fundus. The partially visualized bowel gas pattern is nonspecific. Signed: Isaias Tovar MD Report Verified Date/Time: 11/29/2017 13:01:44 Reading Location: [facility] Radiology Reading Room * Hemoglobin A1c - Fasting (11/29/2017 4:34 AM) Component Value Ref Range Hemoglobin A1C 5.6 4.3 - 6.1 % Specimen Performing Laboratory Blood - Line, Arterial [address] [address] * Fasting lipid panel (11/29/2017 4:34 AM) Component Value Ref Range Triglycerides 214 mg/dL Cholesterol 233 mg/dL HDL 38 mg/dL LDL Calculated 152 mg/dL Specimen Performing Laboratory Blood - Line, Arterial [address] [address] Narrative Triglyceride Reference Range: Low Risk <150 [id number] High Risk 200-499 Very High Risk>=500 Cholesterol Reference Range: Low Risk <200 [id number] High Risk>240 HDL Cholesterol Reference Range: Low Risk >=60 High Risk <40 LDL Cholesterol Reference Range: Optimal<100 Near [id number] Very High >=190 Fasting * Anaerobic culture (11/29/2017 1:58 AM) Component Value Ref Range Result No anaerobes isolated Specimen Performing [place] [address] * Transfuse cryoprecipitate (11/28/2017 11:57 PM) Only the most recent of 3 results within the time period is included. * Fibrinogen (11/28/2017 10:23 PM) Component Value Ref Range Fibrinogen 109 (L) 225 - 434 mg/dl Specimen Performing Laboratory Blood - Arm, [place] [address] * RPR (11/28/2017 8:49 PM) Component Value Ref Range RPR Nonreactive Nonreactive Specimen Performing Laboratory Blood - Arm, [place] [address] * Hepatic function panel (11/28/2017 8:49 PM) Component Value Ref Range Protein, Total 6.7Comment: Specimen slightly hemolyzed 6.0 - 8.3 gm/dL Albumin 3.8Comment: Specimen slightly hemolyzed 3.5 - 5.0 g/dL Total Bilirubin 0.3Comment: Specimen slightly hemolyzed 0.2 - 1.2 mg/dL Bilirubin, Direct 0.1Comment: Specimen slightly hemolyzed 0.1 - 0.5 mg/dL Alkaline Phosphatase 63 40 - 150 U/L AST 32Comment: Specimen slightly hemolyzed 5 - 34 U/L ALT 35Comment: Specimen slightly hemolyzed 6 - 55 U/L Specimen Performing Laboratory Blood - Arm, [place] [address] * NV cerebral 4 vessel angiogram (11/28/2017 6:12 PM) Specimen Performing Laboratory GE RIS Narrative FINAL REPORT DATE OF PROCEDURE: 11/08/2017 SURGEON:Elfego Ortiz MD ACTIVATED SLUDGE ATTENDANT: Stephen Delvalle MD PREOPERATIVE DIAGNOSIS:Acute right MCA stroke, right ICA terminus and M1 occlusion POSTOPERATIVE DIAGNOSIS: Acute Acute right MCA stroke, right ICA terminus and M1 occlusion PROCEDURE PERFORMED: 1. Diagnostic Angiogram 2. Right ICA and MCA mechanical thrombectomy with proximal balloon occlusion 3. Intra-arterial verapamil infusion (10mg over 10min) ANESTHESIA: MAC COMPLICATIONS: None ESTIMATED BLOOD LOSS: Less than 20ml VESSELS STUDIED: *Right common carotid artery x 1 *Right internal carotid artery x >10 *Right middle cerebral microangiogram x1 *Right common femoral artery x1 MATERIALS EMPLOYED: 1. 8 Scottish short sheath 2. 5 Scottish 125cm diagnostic catheter 3. [employer] guidewire 4. Terumo 0.035 LT glidewire 5. Flowgate 8f Balloon Guide Catheter 6. Marksman microcatheter 7. Solitaire 6mm x 40mm 8. 8 Scottish Angioseal device INDICATIONS: Patient is a 42-year-old male with a past medical history of cardiac myopathy and heart failure with recent AICD placement presented with acute onset weakness in the left arm and leg this afternoon. He was brought to the hospital for stroke evaluation and is initial NIHSS was 14. He received intravenous TPA at a CT angiogram demonstrated large vessel occlusion of the right ICA terminus and right proximal M1. He was transferred emergently to the endovascular suite for a mechanical thrombectomy. While the patient was being prepared for the procedure by the team, the indications for the procedure as well as the risks, benefits and alternatives to the procedure were again extensively discussed with the family at the bedside and via telephone in the family conference. The risks discussed included but were not limited to stroke of bilateral hemispheres due to the presumed aortic arch - innominate artery clot, intracranial hemorrhage, injury to the cervical femoral or aortic vessels, contrast reaction, kidney to toxicity, groin hematoma, weakness paralysis and even . They demonstrated understanding of the risk benefit profile and agreed to proceed. PROCEDURE: After appropriate consent was obtained, the patient was brought to the angiographic suite and cardiopulmonary monitoring was placed. The anesthesia team performed intubation. A timeout was performed. Both groins were prepped and draped in the usual sterile fashion. After administration of 10 mL of 2% lidocaine, a micropuncture needle was used to perform a single wall puncture of the right common femoral artery, a micropuncture sheath was inserted, and an angled DSA angiogram was performed through the sheath. Once good location of the puncture site was confirmed, a 8 Scottish short sheath was inserted over a Bentson wire and was maintained on heparinized saline flush throughout the remainder of the procedure. Using coaxial technique, a preflushed 5 Scottish 125cm diagnostic glide catheter on constant heparinized saline flush was placed through a pre-flushed and pre-prepped 8 Scottish Flowgate balloon Guide catheter. The two catheters were inserted together and advanced over the Glidewire into the descending aorta, the Glidewire was removed, the catheter and Flowgate were back bled, flushed in usual fashion and they were maintained on heparinized flush throughout duration of the case. Using coaxial technique, the catheter was advanced into the proximal aortic arch and with the aid of digital fluoroscopy, and careful guidewire manipulation, the right common carotid was access from the descending aorta with the glidewire selecting the CCA. After selecting the CCA, the right internal carotid arteries was selectively catheterized. Over the diagnostic catheter, the Flowgate balloon guide catheter was advanced into the proximal internal carotid artery. The diagnostic catheter was removed, and the balloon guide again back flushed, antegrade flushed and maintained on heparinized flush throughout remainder the procedure. We then inserted a preflushed Marksman microcatheter over a preshaped Synchro standard wire under roadmap guidance into the intracranial circulation. We then advanced it past the large vessel occlusion in the ICA terminus and into the M2 branches. The performed microangiograms through the microcatheter to confirm that the tip of the microcatheter was distal to the large vessel clot. Once this was confirmed, we then inserted and deployed the 6 x 40 Solitaire device across the clot. We then waited five minutes for clot integration. At five minutes, the Flowgate balloon was inflated until it was occlusive in the internal carotid, the butcher assistant pulled suction through the lumen of the Flowgate as we retracted the Solitaire device into the Flowgate catheter to the hub. We then disconnected the hub removed the device back bled the Flowgate catheter while the balloon was being deflated, and re-connected the Flowgate to a clean Y-valve / heparinized flush system. The balloon was confirmed to be deflated with live fluoroscopy, and a diagnostic angiogram of the intracranial circulation was performed. There was a large clot seen in the Solitaire device. The post-thrombectomy angiogram showed vasospasm of the cervical ICA as well as the M1. Intra-arterial verapamil 10mg was slowly infused over 10 minutes into the ICA. A subsequent angiogram showed considerable resolution of the vasospasm and no evidence of new clot formation in the ICA or MCA. The femoral sheath was removed and hemostasis achieved with an 8 Scottish Angioseal. The patient tolerated the procedure well. He was was transferred to the neurological intensive care unit to be monitored as per protocol. FINDINGS: RIGHT COMMON FEMORAL ARTERY (DSA, PA X 1) Normal common femoral artery was punctured above the bifurcation and below the markers of the internal ligament. RIGHT COMMON CAROTID ARTERY (DSA, PA, LATERAL X 3) Limited contrast flow into the cervical ICA is seen. Post thrombectomy, there is complete resolution of the clot with physiological filling of the distal ICA,MCA and its branches. Post Thrombectomy, areas of vasospasm are noted in the right cervical ICA, and right M1. This is seen to resolve partially with intra-arterial verapamil therapy. This is TICI 2C revascularization. No aneurysms or other vascular lesions are seen. There is no significant atherosclerosis or stenosis. The venous phase demonstrates patent transverse and sigmoid sinuses. IMPRESSION: 1. Complete occlusion of the right intracranial carotid terminus and MCA M1 segment. Post-revascularization, there is resolution of the intravascular thrombus and cheondoism of flow to the distal MCA branches, representing a TICI 2C revascularization. Vasospasm is noted in the ICA and MCA, which greatly improved with intra-arterial verapamil infusion. FACULTY ATTESTATION: I, Elfego Ortiz M.D., was present for the entirety of the procedure. I performed or directly supervised all aspects of the procedure. I performed all critical aspects of the case. I interpreted the images and reported the results. Signed: Elfego Ortiz MD Report Verified Date/Time:11/29/2017 11:29:42 Reading Location: [facility] Neuro Angio Reading Room Procedure Note Interface, External Ris In - 11/29/2017 11:31 AM CDT FINAL REPORT DATE OF PROCEDURE: 11/08/2017 SURGEON: Elfego Ortiz MD ACTIVATED SLUDGE ATTENDANT: Stephen Delvalle MD PREOPERATIVE DIAGNOSIS: Acute right MCA stroke, right ICA terminus and M1 occlusion POSTOPERATIVE DIAGNOSIS: Acute Acute right MCA stroke, right ICA terminus and M1 occlusion PROCEDURE PERFORMED: 1. Diagnostic Angiogram 2. Right ICA and MCA mechanical thrombectomy with proximal balloon occlusion 3. Intra-arterial verapamil infusion (10mg over 10min) ANESTHESIA: MAC COMPLICATIONS: None ESTIMATED BLOOD LOSS: Less than 20ml VESSELS STUDIED: *Right common carotid artery x 1 *Right internal carotid artery x >10 *Right middle cerebral microangiogram x1 *Right common femoral artery x1 MATERIALS EMPLOYED: 1. 8 Scottish short sheath 2. 5 Scottish 125cm diagnostic catheter 3. Bentson guidewire 4. Terumo 0.035 LT glidewire 5. Flowgate 8f Balloon Guide Catheter 6. Marksman microcatheter 7. Solitaire 6mm x 40mm 8. 8 Scottish Angioseal device INDICATIONS: Patient is a 42-year-old male with a past medical history of cardiac myopathy and heart failure with recent AICD placement presented with acute onset weakness in the left arm and leg this afternoon. He was brought to the hospital for stroke evaluation and is initial NIHSS was 14. He received intravenous TPA at a CT angiogram demonstrated large vessel occlusion of the right ICA terminus and right proximal M1. He was transferred emergently to the endovascular suite for a mechanical thrombectomy. While the patient was being prepared for the procedure by the team, the indications for the procedure as well as the risks, benefits and alternatives to the procedure were again extensively discussed with the family at the bedside and via telephone in the family conference. The risks discussed included but were not limited to stroke of bilateral hemispheres due to the presumed aortic arch - innominate artery clot, intracranial hemorrhage, injury to the cervical femoral or aortic vessels, contrast reaction, kidney to toxicity, groin hematoma, weakness paralysis and even . They demonstrated understanding of the risk benefit profile and agreed to proceed. PROCEDURE: After appropriate consent was obtained, the patient was brought to the angiographic suite and cardiopulmonary monitoring was placed. The anesthesia team performed intubation. A timeout was performed. Both groins were prepped and draped in the usual sterile fashion. After administration of 10 mL of 2% lidocaine, a micropuncture needle was used to perform a single wall puncture of the right common femoral artery, a micropuncture sheath was inserted, and an angled DSA angiogram was performed through the sheath. Once good location of the puncture site was confirmed, a 8 Scottish short sheath was inserted over a Bentson wire and was maintained on heparinized saline flush throughout the remainder of the procedure. Using coaxial technique, a preflushed 5 Scottish 125cm diagnostic glide catheter on constant heparinized saline flush was placed through a pre-flushed and pre-prepped 8 Scottish Flowgate balloon Guide catheter. The two catheters were inserted together and advanced over the Glidewire into the descending aorta, the Glidewire was removed, the catheter and Flowgate were back bled, flushed in usual fashion and they were maintained on heparinized flush throughout duration of the case. Using coaxial technique, the catheter was advanced into the proximal aortic arch and with the aid of digital fluoroscopy, and careful guidewire manipulation, the right common carotid was access from the descending aorta with the glidewire selecting the CCA. After selecting the CCA, the right internal carotid arteries was selectively catheterized. Over the diagnostic catheter, the Flowgate balloon guide catheter was advanced into the proximal internal carotid artery. The diagnostic catheter was removed, and the balloon guide again back flushed, antegrade flushed and maintained on heparinized flush throughout remainder the procedure. We then inserted a preflushed LightningBuyman microcatheter over a preshaped Synchro standard wire under roadmap guidance into the intracranial circulation. We then advanced it past the large vessel occlusion in the ICA terminus and into the M2 branches. The performed microangiograms through the microcatheter to confirm that the tip of the microcatheter was distal to the large vessel clot. Once this was confirmed, we then inserted and deployed the 6 x 40 Solitaire device across the clot. We then waited five minutes for clot integration. At five minutes, the Flowgate balloon was inflated until it was occlusive in the internal carotid, the butcher assistant pulled suction through the lumen of the Flowgate as we retracted the Solitaire device into the Flowgate catheter to the hub. We then disconnected the hub removed the device back bled the Flowgate catheter while the balloon was being deflated, and re-connected the Flowgate to a clean Y-valve / heparinized flush system. The balloon was confirmed to be deflated with live fluoroscopy, and a diagnostic angiogram of the intracranial circulation was performed. There was a large clot seen in the Solitaire device. The post-thrombectomy angiogram showed vasospasm of the cervical ICA as well as the M1. Intra-arterial verapamil 10mg was slowly infused over 10 minutes into the ICA. A subsequent angiogram showed considerable resolution of the vasospasm and no evidence of new clot formation in the ICA or MCA. The femoral sheath was removed and hemostasis achieved with an 8 Scottish Angioseal. The patient tolerated the procedure well. He was was transferred to the neurological intensive care unit to be monitored as per protocol. FINDINGS: RIGHT COMMON FEMORAL ARTERY (DSA, PA X 1) Normal common femoral artery was punctured above the bifurcation and below the markers of the internal ligament. RIGHT COMMON CAROTID ARTERY (DSA, PA, LATERAL X 3) Limited contrast flow into the cervical ICA is seen. Post thrombectomy, there is complete resolution of the clot with physiological filling of the distal ICA, MCA and its branches. Post Thrombectomy, areas of vasospasm are noted in the right cervical ICA, and right M1. This is seen to resolve partially with intra-arterial verapamil therapy. This is TICI 2C revascularization. No aneurysms or other vascular lesions are seen. There is no significant atherosclerosis or stenosis. The venous phase demonstrates patent transverse and sigmoid sinuses. IMPRESSION: 1. Complete occlusion of the right intracranial carotid terminus and MCA M1 segment. Post-revascularization, there is resolution of the intravascular thrombus and cheondoism of flow to the distal MCA branches, representing a TICI 2C revascularization. Vasospasm is noted in the ICA and MCA, which greatly improved with intra-arterial verapamil infusion. FACULTY ATTESTATION: I, Elfego Ortiz M.D., was present for the entirety of the procedure. I performed or directly supervised all aspects of the procedure. I performed all critical aspects of the case. I interpreted the images and reported the results. Signed: Elfego Ortiz MD Report Verified Date/Time: 11/29/2017 11:29:42 Reading Location: [facility] Neuro Angio Reading Room * CTA carotid (11/28/2017 2:12 PM) Specimen Performing Laboratory [facility] Narrative FINAL REPORT CTA head and neck with contrast INDICATION: Stroke TECHNIQUE: Axial noncontrast CT images of the head were obtained. Subsequently, axial intravenous contrast enhanced CTA images of the head and neck were obtained. Multiplanar and 3-D volume rendered reconstruction images were generated on a separate workstation for better delineation of the vascular anatomy. This exam was performed according to our departmental dose optimization program which includes automated exposure control, adjustment of the mA and/or kV according to patient size and/or use of iterative reconstruction technique. COMPARISON: CT head 11/28/2017 at 1326 hours FINDINGS: CTA neck: There are streak artifacts from the shoulders, dense venous contrast, and a left sided pacing device. Abnormalities may be obscured. There is conventional aortic arch anatomy. The proximal great vessels and common carotid arteries demonstrate no focal stenosis. There is no evident ICA stenosis bilaterally by NASCET criteria. The proximal external carotid arteries are unremarkable. The proximal vertebral arteries are suboptimally assessed due to artifacts. Allowing for this, no significant cervical vertebral artery stenosis is seen. The right vertebral artery is larger than the left. CTA head: There is occlusion of the right supraclinoid ICA and right MCA proximal M1 segment. Opacification of the more distal M1 segment and proximal right MCA sylvian fissure branches reflects a component of collateral supply. However, there is loss of right MCA branches in the acute infarct distribution. There is mildly diminished opacification of the right intracranial ICA compared to the left due to the distal ICA occlusion. The remaining proximal resighini of Leroy vessels demonstrate no significant stenosis. No saccular aneurysm is seen. Other findings: The noncontrast head CT demonstrates an acute large volume right MCA territory developing infarct, similar to the earlier study of 1326 hours. No acute hemorrhage or mass effect is seen. The imaged neck and upper chest soft tissues are otherwise without worrisome finding. IMPRESSION: 1. Occlusion of the right supraclinoid ICA, carotid terminus, and proximal right MCA M1 segment suggesting intravascular thrombus, with apparent collateral supply to the more distal M1 and proximal M2 segments, but loss of right MCA sylvian fissure branches in the large volume acute infarct distribution. 2. No evident cervical ICA stenosis bilaterally by NASCET criteria. 3. No significant stenosis in the cervical vertebral arteries. Findings discussed with Dr. Vazquez (neurology ICU housestaff) at 2:45 PM. The patient has been transferred to neuroangiography for possible endovascular therapy. Signed: Maty Hobbs MD Report Verified Date/Time:11/28/2017 15:03:16 Reading Location: [facility] Neuro Reading Room Procedure Note Interface, External Ris In - 11/28/2017 3:05 PM CDT FINAL REPORT CTA head and neck with contrast INDICATION: Stroke TECHNIQUE: Axial noncontrast CT images of the head were obtained. Subsequently, axial intravenous contrast enhanced CTA images of the head and neck were obtained. Multiplanar and 3-D volume rendered reconstruction images were generated on a separate workstation for better delineation of the vascular anatomy. This exam was performed according to our departmental dose optimization program which includes automated exposure control, adjustment of the mA and/or kV according to patient size and/or use of iterative reconstruction technique. COMPARISON: CT head 11/28/2017 at 1326 hours FINDINGS: CTA neck: There are streak artifacts from the shoulders, dense venous contrast, and a left sided pacing device. Abnormalities may be obscured. There is conventional aortic arch anatomy. The proximal great vessels and common carotid arteries demonstrate no focal stenosis. There is no evident ICA stenosis bilaterally by NASCET criteria. The proximal external carotid arteries are unremarkable. The proximal vertebral arteries are suboptimally assessed due to artifacts. Allowing for this, no significant cervical vertebral artery stenosis is seen. The right vertebral artery is larger than the left. CTA head: There is occlusion of the right supraclinoid ICA and right MCA proximal M1 segment. Opacification of the more distal M1 segment and proximal right MCA sylvian fissure branches reflects a component of collateral supply. However, there is loss of right MCA branches in the acute infarct distribution. There is mildly diminished opacification of the right intracranial ICA compared to the left due to the distal ICA occlusion. The remaining proximal resighini of Leroy vessels demonstrate no significant stenosis. No saccular aneurysm is seen. Other findings: The noncontrast head CT demonstrates an acute large volume right MCA territory developing infarct, similar to the earlier study of 1326 hours. No acute hemorrhage or mass effect is seen. The imaged neck and upper chest soft tissues are otherwise without worrisome finding. IMPRESSION: 1. Occlusion of the right supraclinoid ICA, carotid terminus, and proximal right MCA M1 segment suggesting intravascular thrombus, with apparent collateral supply to the more distal M1 and proximal M2 segments, but loss of right MCA sylvian fissure branches in the large volume acute infarct distribution. 2. No evident cervical ICA stenosis bilaterally by NASCET criteria. 3. No significant stenosis in the cervical vertebral arteries. Findings discussed with Dr. Vazquez (neurology ICU housestaff) at 2:45 PM. The patient has been transferred to neuroangiography for possible endovascular therapy. Signed: Maty Hobbs MD Report Verified Date/Time: 11/28/2017 15:03:16 Reading Location: [address] Neuro Reading Room * CTA brain (11/28/2017 2:12 PM) Specimen Performing Laboratory [facility] Narrative FINAL REPORT CTA head and neck with contrast INDICATION: Stroke TECHNIQUE: Axial noncontrast CT images of the head were obtained. Subsequently, axial intravenous contrast enhanced CTA images of the head and neck were obtained. Multiplanar and 3-D volume rendered reconstruction images were generated on a separate workstation for better delineation of the vascular anatomy. This exam was performed according to our departmental dose optimization program which includes automated exposure control, adjustment of the mA and/or kV according to patient size and/or use of iterative reconstruction technique. COMPARISON: CT head 11/28/2017 at 1326 hours FINDINGS: CTA neck: There are streak artifacts from the shoulders, dense venous contrast, and a left sided pacing device. Abnormalities may be obscured. There is conventional aortic arch anatomy. The proximal great vessels and common carotid arteries demonstrate no focal stenosis. There is no evident ICA stenosis bilaterally by NASCET criteria. The proximal external carotid arteries are unremarkable. The proximal vertebral arteries are suboptimally assessed due to artifacts. Allowing for this, no significant cervical vertebral artery stenosis is seen. The right vertebral artery is larger than the left. CTA head: There is occlusion of the right supraclinoid ICA and right MCA proximal M1 segment. Opacification of the more distal M1 segment and proximal right MCA sylvian fissure branches reflects a component of collateral supply. However, there is loss of right MCA branches in the acute infarct distribution. There is mildly diminished opacification of the right intracranial ICA compared to the left due to the distal ICA occlusion. The remaining proximal resighini of Leroy vessels demonstrate no significant stenosis. No saccular aneurysm is seen. Other findings: The noncontrast head CT demonstrates an acute large volume right MCA territory developing infarct, similar to the earlier study of 1326 hours. No acute hemorrhage or mass effect is seen. The imaged neck and upper chest soft tissues are otherwise without worrisome finding. IMPRESSION: 1. Occlusion of the right supraclinoid ICA, carotid terminus, and proximal right MCA M1 segment suggesting intravascular thrombus, with apparent collateral supply to the more distal M1 and proximal M2 segments, but loss of right MCA sylvian fissure branches in the large volume acute infarct distribution. 2. No evident cervical ICA stenosis bilaterally by NASCET criteria. 3. No significant stenosis in the cervical vertebral arteries. Findings discussed with Dr. Vazquez (neurology ICU housestaff) at 2:45 PM. The patient has been transferred to neuroangiography for possible endovascular therapy. Signed: Maty Hobbs MD Report Verified Date/Time:11/28/2017 15:03:16 Reading Location: [facility] C013 Neuro Reading Room Procedure Note Interface, External Ris In - 11/28/2017 3:05 PM CDT FINAL REPORT CTA head and neck with contrast INDICATION: Stroke TECHNIQUE: Axial noncontrast CT images of the head were obtained. Subsequently, axial intravenous contrast enhanced CTA images of the head and neck were obtained. Multiplanar and 3-D volume rendered reconstruction images were generated on a separate workstation for better delineation of the vascular anatomy. This exam was performed according to our departmental dose optimization program which includes automated exposure control, adjustment of the mA and/or kV according to patient size and/or use of iterative reconstruction technique. COMPARISON: CT head 11/28/2017 at 1326 hours FINDINGS: CTA neck: There are streak artifacts from the shoulders, dense venous contrast, and a left sided pacing device. Abnormalities may be obscured. There is conventional aortic arch anatomy. The proximal great vessels and common carotid arteries demonstrate no focal stenosis. There is no evident ICA stenosis bilaterally by NASCET criteria. The proximal external carotid arteries are unremarkable. The proximal vertebral arteries are suboptimally assessed due to artifacts. Allowing for this, no significant cervical vertebral artery stenosis is seen. The right vertebral artery is larger than the left. CTA head: There is occlusion of the right supraclinoid ICA and right MCA proximal M1 segment. Opacification of the more distal M1 segment and proximal right MCA sylvian fissure branches reflects a component of collateral supply. However, there is loss of right MCA branches in the acute infarct distribution. There is mildly diminished opacification of the right intracranial ICA compared to the left due to the distal ICA occlusion. The remaining proximal resighini of Leroy vessels demonstrate no significant stenosis. No saccular aneurysm is seen. Other findings: The noncontrast head CT demonstrates an acute large volume right MCA territory developing infarct, similar to the earlier study of 1326 hours. No acute hemorrhage or mass effect is seen. The imaged neck and upper chest soft tissues are otherwise without worrisome finding. IMPRESSION: 1. Occlusion of the right supraclinoid ICA, carotid terminus, and proximal right MCA M1 segment suggesting intravascular thrombus, with apparent collateral supply to the more distal M1 and proximal M2 segments, but loss of right MCA sylvian fissure branches in the large volume acute infarct distribution. 2. No evident cervical ICA stenosis bilaterally by NASCET criteria. 3. No significant stenosis in the cervical vertebral arteries. Findings discussed with Dr. Vazquez (neurology ICU housestaff) at 2:45 PM. The patient has been transferred to neuroangiography for possible endovascular therapy. Signed: Maty Hobbs MD Report Verified Date/Time: 11/28/2017 15:03:16 Reading Location: [address] Neuro Reading Room * POC-Lactic Acid, Venous (11/28/2017 1:41 PM) Component Value Ref Range POC-Lactic Acid, Venous 2.6 (H)Comment: TESTED AT [address] 0.9 - 1.7 mmol/L [place] [address] Specimen Performing Laboratory Blood [address] [address] * PT/aPTT (11/28/2017 1:41 PM) Component Value Ref Range Protime 12.8 11.7 - 14.7 seconds INR 1.0 <=5.9 PTT 27.5 22.5 - 36.0 seconds Specimen Performing Laboratory Blood [address] [address] Narrative RECOMMENDED COUMADIN/WARFARIN INR THERAPY RANGES STANDARD DOSE: 2.0 - 3.0 Includes: PROPHYLAXIS for venous thrombosis, systemic embolization; TREATMENT for venous thrombosis and/or pulmonary embolus. HIGH RISK: Target INR is 2.5-3.5 for patients with mechanical heart valves. * CT brain/stroke protocol (11/28/2017 1:38 PM) Specimen Performing Laboratory GE RIS Narrative FINAL REPORT CT head without contrast 11/28/2017 1:36 PM CLINICAL HISTORY: Neuro deficit(s), subacute stroke TECHNIQUE: Axial noncontrast CT images through the head were obtained. This examination was performed according to our departmental dose optimization program, which includes automated exposure control, adjustment of the mA and/or kV according to patient size, and/or use of iterated reconstruction technique. COMPARISON: None available FINDINGS: There is hyperdense thrombus in the M1 segment right middle cerebral artery. There is subtle loss of tobar-white differentiation in the right corpus striatum and insula. There is no hemorrhage, extra-axial collection, mass, hydrocephalus, or midline shift. The visualized paranasal sinuses and mastoid air cells are well aerated. The skull is intact. 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 Findings were discussed with Dr. Hopkins on 11/28/2017 at 1335. Signed: Tae Olivares MD Report Verified Date/Time:11/28/2017 13:43:00 Reading Location: [facility] Radiology Reading Room Procedure Note Interface, External Ris In - 11/28/2017 1:59 PM CDT FINAL REPORT CT head without contrast 11/28/2017 1:36 PM CLINICAL HISTORY: Neuro deficit(s), subacute stroke TECHNIQUE: Axial noncontrast CT images through the head were obtained. This examination was performed according to our departmental dose optimization program, which includes automated exposure control, adjustment of the mA and/or kV according to patient size, and/or use of iterated reconstruction technique. COMPARISON: None available FINDINGS: There is hyperdense thrombus in the M1 segment right middle cerebral artery. There is subtle loss of tobar-white differentiation in the right corpus striatum and insula. There is no hemorrhage, extra-axial collection, mass, hydrocephalus, or midline shift. The visualized paranasal sinuses and mastoid air cells are well aerated. The skull is intact. 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 Findings were discussed with Dr. Hopkins on 11/28/2017 at 1335. Signed: Tae Olivares MD Report Verified Date/Time: 11/28/2017 13:43:00 Reading Location: [facility] Radiology Reading Room * CARDIAC CATH REPORT - SCAN (11/13/2017 5:37 PM) * MR cardiac without & with IV contrast (07/09/2017 4:50 PM) Specimen Performing Laboratory [place] Narrative FINAL REPORT Cardiac MRI dated 09 July 2017. INDICATION: This is a 41 year-old male with heart failure presents for assessment. According to the patient, he is known to have a degree of systolic dysfunction, a few years ago of ejection fraction of 40%. For the last few months, his ejection fraction has dropped to 20%. Angiography demonstrate no significant obstructive disease. Patient denies any foreign traveling. Patient has history of past alcohol use. This study is performed in order to quantitate left ventricular function, and to determine myocardial viability and damage. TECHNIQUE: Grabiel ACHIEVAMRI scanner. Morphologic and dynamic cine imaging were performed in multiple projections before and after contrast administration.Thereafter, gadolinium was administered, which was followed by viability/scar imaging.Finally, flow quantification sequences were performed to determine the degree of valvular dysfunction. Please refer to the contrast sheet scanned in the EPIC system for the amount and route of contrast given. Scanning blood pressure was 103/67. Patient weighs 195 pounds, with height of 64 inches. Body surface area is approximately 2 sq m. FINDINGS: The chest wall and mediastinum appears unremarkable.The pericardium and pulmonary arteries appear normal. Mild pericardial effusion is seen, considered physiologic in nature. The central pulmonary artery is normal in calibre. Limited imaging through the lungs reveals no gross abnormalities, however, MR is not optimised in the assessment of pulmonary parenchymal lung disease. The cardiac chambers demonstrate normal atrioventricular and ventriculoarterial concordance, and systemic and pulmonary venous return.The thoracic aorta is normal in course, caliber, and contour. There is no evidence of acute aortic pathology, such as dissection, intramural hematoma, or contained rupture. The left ventricle is at the upper limits of normal in size after indexed to body surface area is, with severe systolic dysfunction. There is no evidence of hypertrophic cardiomyopathy or left ventricular noncompaction. The entire interventricular septum is severely hypokinetic/akinetic, and the distal two third of the anterior wall is also severely hypokinetic/akinetic. The lateral wall and the inferior miller are also hypokinetic though has somewhat better contraction when compared to the septum and anterior wall. Quantitative values are as follows: KOI=884 cc; WZA=346 cc; stroke volume=60 cc; and ejection fraction=29%.Calculated absolute cardiac output=3.8 liters/min.Absolute left ventricular nbkm=756 grams. Index LVEDV is 102 cc/sq m that is at the upper limits of normal. The right ventricle is normal in size and function. Quantitative values are as follows: WUV=882 cc; ESV=75 cc; stroke volume=53 cc; and ejection fraction=41%. Cine imaging and flow quantification reveals normal mitral, aortic and tricuspid valve function. Viability/scar imaging is abnormal. Whilst the basal LV is unremarkable, majority of the septum has transmural hyperenhancement identified, extending into the mid and part of the distal anterior wall. Much of the apex is viable myocardium except in the small area of the anteroapical apex. The lateral wall is viable and much of the inferior wall is also viable though there is an area of the distal inferior wall with hyperenhancement identified. Finally, there is hyperenhancement identified in the apical area / /distal right ventricle. Left ventricular long axis strain is reduced,=-6.4% (normal MRI reference range is approximately - 16.5 + / - 2.2 percent). Ventricular thrombus is not present. There is left and right atrial enlargement identified. CONCLUSIONS: 1. The left ventricle is at the upper limits of normal in size with moderately severe systolic dysfunction. Segmental wall motion abnormalities as described above. There is no evidence of left ventricular noncompaction. Ejection fraction is quantified to be 29%. Quantitative left ventricular functional values are as described above. Viability/scar imaging is abnormal. Whilst the basal LV is unremarkable, majority of the septum has transmural hyperenhancement identified, extending into the mid and part of the distal anterior wall. Much of the apex is viable myocardium except in the small area of the anteroapical apex. The lateral wall is viable and much of the inferior wall is also viable though there is an area of the distal inferior wall with hyperenhancement identified. Patchy hyperenhancement is also identified in both papillary muscles at the mid level of the LV. The right ventricle is normal in size and function. Quantitative right ventricular functional values are as described above. There is hyperenhancement identified in the apical/distal right ventricle. The exact aetiology of the hyperenhancement is not immediately apparent.Patient indicates he has no obstructive coronary disease. Infiltrative condition suggest myocardial sarcoidosis could be a potential aetiology, however, no obvious hilar adenopathy is appreciated in this current examination. Please tiny correlate with appropriate clinical aetiology. Reduction in left ventricular long axis strain. 2.Left and right atrial enlargement. 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 INDICATION: This is a 41 year-old male with heart failure presents for assessment. According to the patient, he is known to have a degree of systolic dysfunction, a few years ago of ejection fraction of 40%. For the last few months, his ejection fraction has dropped to 20%. Angiography demonstrate no significant obstructive disease. Patient denies any foreign traveling. Patient has history of past alcohol use. This study is performed in order to quantitate left ventricular function, and to determine myocardial viability and damage. TECHNIQUE: Grabiel ACHIEVA MRI scanner. Morphologic and dynamic cine imaging were performed in multiple projections before and after contrast administration. Thereafter, gadolinium was administered, which was followed by viability/scar imaging. Finally, flow quantification sequences were performed to determine the degree of valvular dysfunction. Please refer to the contrast sheet scanned in the EPIC system for the amount and route of contrast given. Scanning blood pressure was 103/67. Patient weighs 195 pounds, with height of 64 inches. Body surface area is approximately 2 sq m. FINDINGS: The chest wall and mediastinum appears unremarkable. The pericardium and pulmonary arteries appear normal. Mild pericardial effusion is seen, considered physiologic in nature. The central pulmonary artery is normal in calibre. Limited imaging through the lungs reveals no gross abnormalities, however, MR is not optimised in the assessment of pulmonary parenchymal lung disease. The cardiac chambers demonstrate normal atrioventricular and ventriculoarterial concordance, and systemic and pulmonary venous return. The thoracic aorta is normal in course, caliber, and contour. There is no evidence of acute aortic pathology, such as dissection, intramural hematoma, or contained rupture. The left ventricle is at the upper limits of normal in size after indexed to body surface area is, with severe systolic dysfunction. There is no evidence of hypertrophic cardiomyopathy or left ventricular noncompaction. The entire interventricular septum is severely hypokinetic/akinetic, and the distal two third of the anterior wall is also severely hypokinetic/akinetic. The lateral wall and the inferior miller are also hypokinetic though has somewhat better contraction when compared to the septum and anterior wall. Quantitative values are as follows: KLY=587 cc; KTQ=805 cc; stroke volume=60 cc; and ejection fraction=29%. Calculated absolute cardiac output=3.8 liters/min. Absolute left ventricular ikpb=568 grams. Index LVEDV is 102 cc/sq m that is at the upper limits of normal. The right ventricle is normal in size and function. Quantitative values are as follows: ZPB=642 cc; ESV=75 cc; stroke volume=53 cc; and ejection fraction=41%. Cine imaging and flow quantification reveals normal mitral, aortic and tricuspid valve function. Viability/scar imaging is abnormal. Whilst the basal LV is unremarkable, majority of the septum has transmural hyperenhancement identified, extending into the mid and part of the distal anterior wall. Much of the apex is viable myocardium except in the small area of the anteroapical apex. The lateral wall is viable and much of the inferior wall is also viable though there is an area of the distal inferior wall with hyperenhancement identified. Finally, there is hyperenhancement identified in the apical area / /distal right ventricle. Left ventricular long axis strain is reduced,=-6.4% (normal MRI reference range is approximately - 16.5 + / - 2.2 percent). Ventricular thrombus is not present. There is left and right atrial enlargement identified. CONCLUSIONS: 1. The left ventricle is at the upper limits of normal in size with moderately severe systolic dysfunction. Segmental wall motion abnormalities as described above. There is no evidence of left ventricular noncompaction. Ejection fraction is quantified to be 29%. Quantitative left ventricular functional values are as described above. Viability/scar imaging is abnormal. Whilst the basal LV is unremarkable, majority of the septum has transmural hyperenhancement identified, extending into the mid and part of the distal anterior wall. Much of the apex is viable myocardium except in the small area of the anteroapical apex. The lateral wall is viable and much of the inferior wall is also viable though there is an area of the distal inferior wall with hyperenhancement identified. Patchy hyperenhancement is also identified in both papillary muscles at the mid level of the LV. The right ventricle is normal in size and function. Quantitative right ventricular functional values are as described above. There is hyperenhancement identified in the apical/distal right ventricle. The exact aetiology of the hyperenhancement is not immediately apparent. Patient indicates he has no obstructive coronary disease. Infiltrative condition suggest myocardial sarcoidosis could be a potential aetiology, however, no obvious hilar adenopathy is appreciated in this current examination. Please tiny correlate with appropriate clinical aetiology. Reduction in left ventricular long axis strain. 2. Left and right atrial enlargement. Signed: Jacob Tolbert MD Report Verified Date/Time: 07/09/2017 17:31:06 Reading Location: [place] [address] Cardiology MRI after 02/08/2017
--- OUTSIDE RECORDS SUMMARY | 2018-02-18 11:51 | XMS REPORT ---
Author Author [facility] Address Unknown Phone Unavailable Care Team Providers Care Barrel Washer Machine Name Role Phone Lou WOODARD Unavailable Unavailable Florinda FOX Unavailable Unavailable YUMIKO COLUNGA Unavailable Unavailable JITENDRA KAT Unavailable Unavailable Problems This patient has no known problems. Allergies, Adverse Reactions, Alerts This patient has no known allergies or adverse reactions. Medications This patient has no known medications. Results Test Description Test Time Test Comments Text Results Atomic Results Result Comments SURGICALLY OBTAINED CULTURE + GRAM STAIN 2018-02-17 12:41:00 CULTURE (BEAKER) (test pnto=8453) No growth GRAM STAIN RESULT (BEAKER) (test mfog=3214) No White blood cells seen GRAM STAIN RESULT (BEAKER) (test idgu=85021) No organisms seen [id number] 05:09:00* Test Item Value Reference Range Comments MAGNESIUM (BEAKER) (test zooi=480) 2.2 mg/dL 1.6-2.6 BASIC METABOLIC [id number] 05:09:00* Test Item Value Reference Range Comments SODIUM (BEAKER) (test zbfc=573) 139 meq/L 136-145 POTASSIUM (BEAKER) (test dbka=540) 3.8 meq/L 3.5-5.1 CHLORIDE (BEAKER) (test wcdb=765) 102 meq/L 98-107 CO2 (BEAKER) (test iifv=238) 30 meq/L 22-29 BLOOD UREA NITROGEN (BEAKER) (test qamb=213) 10 mg/dL 7-21 CREATININE (BEAKER) (test iphp=178) 0.84 mg/dL 0.57-1.25 GLUCOSE RANDOM (BEAKER) (test zbwe=503) 99 mg/dL 70-105 CALCIUM (BEAKER) (test vwtt=185) 9.1 mg/dL 8.4-10.2 EGFR (BEAKER) (test pzjh=3886) 100 mL/min/1.73 sq m ESTIMATED GFR IS NOT ACCURATE CREATININE CLEARANCE IN PREDICTING GLOMERULAR FILTRATION RATE. ESTIMATED GFR IS NOT APPLICABLE FOR DIALYSIS PATIENTS. CBC W/PLT COUNT & AUTO [id number] 04:40:00* Test Item Value Reference Range Comments WHITE BLOOD CELL COUNT (BEAKER) (test cucj=907) 11.3 K/ L 3.5-10.5 RED BLOOD CELL COUNT (BEAKER) (test nszv=274) 4.35 M/ L 4.63-6.08 HEMOGLOBIN (BEAKER) (test dagl=986) 12.7 GM/DL 13.7-17.5 HEMATOCRIT (BEAKER) (test fabi=957) 38.7 % 40.1-51.0 MEAN CORPUSCULAR VOLUME (BEAKER) (test jcph=566) 89.0 fL 79.0-92.2 MEAN CORPUSCULAR HEMOGLOBIN (BEAKER) (test thvm=977) 29.2 pg 25.7-32.2 MEAN CORPUSCULAR HEMOGLOBIN CONC (BEAKER) (test rugh=568) 32.8 GM/DL 32.3-36.5 RED CELL DISTRIBUTION WIDTH (BEAKER) (test mbfd=621) 12.3 % 11.6-14.4 PLATELET COUNT (BEAKER) (test frtd=794) 274 K/CU MM 150-450 MEAN PLATELET VOLUME (BEAKER) (test nmmt=003) 9.7 fL 9.4-12.4 NUCLEATED RED BLOOD CELLS (BEAKER) (test nxjq=488) 0 /100 WBC 0-0 NEUTROPHILS RELATIVE PERCENT (BEAKER) (test jkyi=735) 62 % LYMPHOCYTES RELATIVE PERCENT (BEAKER) (test uebt=373) 28 % MONOCYTES RELATIVE PERCENT (BEAKER) (test rebs=714) 8 % EOSINOPHILS RELATIVE PERCENT (BEAKER) (test nbxt=515) 2 % BASOPHILS RELATIVE PERCENT (BEAKER) (test ftvy=746) 0 % NEUTROPHILS ABSOLUTE COUNT (BEAKER) (test jqhw=163) 6.98 K/ L 1.78-5.38 LYMPHOCYTES ABSOLUTE COUNT (BEAKER) (test pmxq=921) 3.10 K/ L 1.32-3.57 MONOCYTES ABSOLUTE COUNT (BEAKER) (test upje=508) 0.91 K/ L 0.30-0.82 EOSINOPHILS ABSOLUTE COUNT (BEAKER) (test oqrb=981) 0.23 K/ L 0.04-0.54 BASOPHILS ABSOLUTE COUNT (BEAKER) (test cuju=975) 0.03 K/ L 0.01-0.08 IMMATURE GRANULOCYTES-RELATIVE PERCENT (BEAKER) (test vlvl=7278) 0 % 0-1 SPIN/CONCENTRATION [id number] 10:56:00* Test Item Value Reference Range Comments CONCENTRATION CHARGED (BEAKER) (test qjqk=1141) Done [id number] 04:01:00* Test Item Value Reference Range Comments PHOSPHORUS (BEAKER) (test pmxd=403) 4.0 mg/dL 2.3-4.7 [id number] 04:01:00* Test Item Value Reference Range Comments MAGNESIUM (BEAKER) (test qdgf=842) 2.1 mg/dL 1.6-2.6 BASIC METABOLIC [id number] 04:01:00* Test Item Value Reference Range Comments SODIUM (BEAKER) (test omnq=922) 136 meq/L 136-145 POTASSIUM (BEAKER) (test kmqq=178) 3.9 meq/L 3.5-5.1 CHLORIDE (BEAKER) (test wgcg=566) 102 meq/L 98-107 CO2 (BEAKER) (test nktt=163) 26 meq/L 22-29 BLOOD UREA NITROGEN (BEAKER) (test tswq=090) 17 mg/dL 7-21 CREATININE (BEAKER) (test regq=122) 0.85 mg/dL 0.57-1.25 GLUCOSE RANDOM (BEAKER) (test wzdg=346) 107 mg/dL 70-105 CALCIUM (BEAKER) (test qpyd=734) 8.8 mg/dL 8.4-10.2 EGFR (BEAKER) (test jqvx=2709) 98 mL/min/1.73 sq m ESTIMATED GFR IS NOT ACCURATE CREATININE CLEARANCE IN PREDICTING GLOMERULAR FILTRATION RATE. ESTIMATED GFR IS NOT APPLICABLE FOR DIALYSIS PATIENTS. CBC W/PLT COUNT & AUTO [id number] 03:50:00* Test Item Value Reference Range Comments WHITE BLOOD CELL COUNT (BEAKER) (test fxhu=338) 12.2 K/ L 3.5-10.5 RED BLOOD CELL COUNT (BEAKER) (test kplm=498) 4.28 M/ L 4.63-6.08 HEMOGLOBIN (BEAKER) (test ksyi=334) 12.5 GM/DL 13.7-17.5 HEMATOCRIT (BEAKER) (test iwfr=510) 37.9 % 40.1-51.0 MEAN CORPUSCULAR VOLUME (BEAKER) (test mwft=778) 88.6 fL 79.0-92.2 MEAN CORPUSCULAR HEMOGLOBIN (BEAKER) (test xnve=388) 29.2 pg 25.7-32.2 MEAN CORPUSCULAR HEMOGLOBIN CONC (BEAKER) (test fyfw=454) 33.0 GM/DL 32.3-36.5 RED CELL DISTRIBUTION WIDTH (BEAKER) (test kfhi=305) 12.3 % 11.6-14.4 PLATELET COUNT (BEAKER) (test brdd=513) 281 K/CU MM 150-450 MEAN PLATELET VOLUME (BEAKER) (test jhpa=040) 9.5 fL 9.4-12.4 NUCLEATED RED BLOOD CELLS (BEAKER) (test qorr=715) 0 /100 WBC 0-0 NEUTROPHILS RELATIVE PERCENT (BEAKER) (test qpoj=817) 72 % LYMPHOCYTES RELATIVE PERCENT (BEAKER) (test tpet=228) 21 % MONOCYTES RELATIVE PERCENT (BEAKER) (test uhby=766) 6 % EOSINOPHILS RELATIVE PERCENT (BEAKER) (test mxfn=446) 0 % BASOPHILS RELATIVE PERCENT (BEAKER) (test ufzx=376) 0 % NEUTROPHILS ABSOLUTE COUNT (BEAKER) (test ktoy=477) 8.82 K/ L 1.78-5.38 LYMPHOCYTES ABSOLUTE COUNT (BEAKER) (test auzp=927) 2.53 K/ L 1.32-3.57 MONOCYTES ABSOLUTE COUNT (BEAKER) (test fghf=151) 0.76 K/ L 0.30-0.82 EOSINOPHILS ABSOLUTE COUNT (BEAKER) (test lpwl=170) 0.05 K/ L 0.04-0.54 BASOPHILS ABSOLUTE COUNT (BEAKER) (test dnpi=788) 0.01 K/ L 0.01-0.08 IMMATURE GRANULOCYTES-RELATIVE PERCENT (BEAKER) (test rram=2768) 0 % 0-1 CT BRAIN WITHOUT IV CONTRAST - [id number] 13:18:00Reason for exam:->post op checkFINAL REPORT CT head without contrast INDICATION: Postop TECHNIQUE: Contiguous axial images through the head without contrast on the portable CT unit. This exam was performed according to our departmental dose optimization program which includes automated exposure control, adjustment of the mA and/or kV according to patient size and/or use of iterative reconstruction technique. COMPARISON: CT head 02/13/2018 FINDINGS:There has been replacement of a right craniectomy [...] ICU) at 1:17 PM Signed: Maty Hobbs MDReport Verified Date/Time: 02/15/2018 13:18:32 Reading Location: [address] Neuro Reading Room [id number] 05:08:00* Test Item Value Reference Range Comments PHOSPHORUS (BEAKER) (test cybq=920) 4.2 mg/dL 2.3-4.7 [id number] 05:08:00* Test Item Value Reference Range Comments MAGNESIUM (BEAKER) (test jnip=810) 2.0 mg/dL 1.6-2.6 BASIC METABOLIC [id number] 05:08:00* Test Item Value Reference Range Comments SODIUM (BEAKER) (test yhpd=782) 137 meq/L 136-145 POTASSIUM (BEAKER) (test otdu=531) 4.5 meq/L 3.5-5.1 CHLORIDE (BEAKER) (test qjap=768) 106 meq/L 98-107 CO2 (BEAKER) (test okmq=333) 23 meq/L 22-29 BLOOD UREA NITROGEN (BEAKER) (test mhac=363) 12 mg/dL 7-21 CREATININE (BEAKER) (test uvvf=942) 0.78 mg/dL 0.57-1.25 GLUCOSE RANDOM (BEAKER) (test jixe=407) 118 mg/dL 70-105 CALCIUM (BEAKER) (test uvbv=665) 9.0 mg/dL 8.4-10.2 EGFR (BEAKER) (test bxpu=7673) 109 mL/min/1.73 sq m ESTIMATED GFR IS NOT ACCURATE CREATININE CLEARANCE IN PREDICTING GLOMERULAR FILTRATION RATE. ESTIMATED GFR IS NOT APPLICABLE FOR DIALYSIS PATIENTS. CBC (HEMOGRAM ONLY)2018-02-15 04:36:00* Test Item Value Reference Range Comments WHITE BLOOD CELL COUNT (BEAKER) (test qqnk=966) 13.2 K/ L 3.5-10.5 RED BLOOD CELL COUNT (BEAKER) (test ybbz=329) 4.43 M/ L 4.63-6.08 HEMOGLOBIN (BEAKER) (test fizo=484) 13.2 GM/DL 13.7-17.5 HEMATOCRIT (BEAKER) (test drsa=954) 38.9 % 40.1-51.0 MEAN CORPUSCULAR VOLUME (BEAKER) (test vaah=158) 87.8 fL 79.0-92.2 MEAN CORPUSCULAR HEMOGLOBIN (BEAKER) (test zgpz=076) 29.8 pg 25.7-32.2 MEAN CORPUSCULAR HEMOGLOBIN CONC (BEAKER) (test zqku=628) 33.9 GM/DL 32.3-36.5 RED CELL DISTRIBUTION WIDTH (BEAKER) (test oqyg=869) 12.0 % 11.6-14.4 PLATELET COUNT (BEAKER) (test izms=709) 275 K/CU MM 150-450 MEAN PLATELET VOLUME (BEAKER) (test wdln=682) 10.1 fL 9.4-12.4 NUCLEATED RED BLOOD CELLS (BEAKER) (test dmpg=764) 0 /100 WBC 0-0 [id number] 05:55:00* Test Item Value Reference Range Comments MAGNESIUM (BEAKER) (test albh=069) 2.1 mg/dL 1.6-2.6 BASIC METABOLIC [id number] 05:55:00* Test Item Value Reference Range Comments SODIUM (BEAKER) (test imiy=087) 141 meq/L 136-145 POTASSIUM (BEAKER) (test scyt=171) 3.7 meq/L 3.5-5.1 CHLORIDE (BEAKER) (test isqc=110) 108 meq/L 98-107 CO2 (BEAKER) (test srak=570) 25 meq/L 22-29 BLOOD UREA NITROGEN (BEAKER) (test ojda=271) 9 mg/dL 7-21 CREATININE (BEAKER) (test xjwa=184) 0.73 mg/dL 0.57-1.25 GLUCOSE RANDOM (BEAKER) (test ewhp=331) 97 mg/dL 70-105 CALCIUM (BEAKER) (test tflg=160) 8.9 mg/dL 8.4-10.2 EGFR (BEAKER) (test rufn=2611) 117 mL/min/1.73 sq m ESTIMATED GFR IS NOT ACCURATE CREATININE CLEARANCE IN PREDICTING GLOMERULAR FILTRATION RATE. ESTIMATED GFR IS NOT APPLICABLE FOR DIALYSIS PATIENTS. PROTHROMBIN TIME/[id number] 05:42:00* Test Item Value Reference Range Comments PROTIME (BEAKER) (test znie=293) 13.9 seconds 11.7-14.7 INR (BEAKER) (test vexr=473) 1.1 <=5.9 RECOMMENDED COUMADIN/WARFARIN INR THERAPY RANGESSTANDARD DOSE: 2.0 - 3.0 Inclu vy: PROPHYLAXIS for venous thrombosis, systemic embolization; TREATMENT for wilma ous thrombosis and/or pulmonary embolus.HIGH RISK: Target INR is 2.5-3.5 for pat ients with mechanical heart valves.[id number] 05:42:00* Test Item Value Reference Range Comments PARTIAL THROMBOPLASTIN TIME (BEAKER) (test kear=089) 28.7 seconds 22.5-36.0 CBC W/PLT COUNT & AUTO [id number] 05:35:00* Test Item Value Reference Range Comments WHITE BLOOD CELL COUNT (BEAKER) (test ovbl=830) 6.0 K/ L 3.5-10.5 RED BLOOD CELL COUNT (BEAKER) (test sjbf=531) 5.03 M/ L 4.63-6.08 HEMOGLOBIN (BEAKER) (test nfmw=717) 14.7 GM/DL 13.7-17.5 HEMATOCRIT (BEAKER) (test omfc=136) 44.0 % 40.1-51.0 MEAN CORPUSCULAR VOLUME (BEAKER) (test mivf=823) 87.5 fL 79.0-92.2 MEAN CORPUSCULAR HEMOGLOBIN (BEAKER) (test lfrd=138) 29.2 pg 25.7-32.2 MEAN CORPUSCULAR HEMOGLOBIN CONC (BEAKER) (test kioh=641) 33.4 GM/DL 32.3-36.5 RED CELL DISTRIBUTION WIDTH (BEAKER) (test bxsx=051) 12.1 % 11.6-14.4 PLATELET COUNT (BEAKER) (test okzq=117) 290 K/CU MM 150-450 MEAN PLATELET VOLUME (BEAKER) (test muqx=424) 10.0 fL 9.4-12.4 NUCLEATED RED BLOOD CELLS (BEAKER) (test kfvg=371) 0 /100 WBC 0-0 NEUTROPHILS RELATIVE PERCENT (BEAKER) (test rctk=648) 42 % LYMPHOCYTES RELATIVE PERCENT (BEAKER) (test zvek=905) 44 % MONOCYTES RELATIVE PERCENT (BEAKER) (test ngbn=778) 8 % EOSINOPHILS RELATIVE PERCENT (BEAKER) (test qsts=417) 5 % BASOPHILS RELATIVE PERCENT (BEAKER) (test qpbq=517) 1 % NEUTROPHILS ABSOLUTE COUNT (BEAKER) (test wwyv=911) 2.52 K/ L 1.78-5.38 LYMPHOCYTES ABSOLUTE COUNT (BEAKER) (test azbu=128) 2.63 K/ L 1.32-3.57 MONOCYTES ABSOLUTE COUNT (BEAKER) (test fomg=196) 0.48 K/ L 0.30-0.82 EOSINOPHILS ABSOLUTE COUNT (BEAKER) (test umni=784) 0.30 K/ L 0.04-0.54 BASOPHILS ABSOLUTE COUNT (BEAKER) (test jwtd=458) 0.03 K/ L 0.01-0.08 IMMATURE GRANULOCYTES-RELATIVE PERCENT (BEAKER) (test uamo=2298) 0 % 0-1 CT, BRAIN, WITHOUT [id number] 17:25:00FINAL REPORT CT head without contrast 02/13/2018 5:24 [...] is no overlying decompressive craniectomy with associated nonhem orrhagic subgaleal collection. There is no hemorrhage, mass, hydrocephalus, conc erning subdural collection, or midline shift. The visualized paranasal sinuses a nd tympanomastoid cavities are well-aerated. There are chronic bilateral nasal b one fracture deformities. IMPRESSION: No intracranial hemorrhage or mass effect. Chronic appearing ischemic and postsurgical changes. If concern for acute patho logy persists, further evaluation with MRI is recommended. Signed: Jean-Claude Olivares MDReport Verified Date/Time: 02/13/2018 17:25:16 Reading Location: [facility] Radiology Reading Room [id number] 07:43:00* Test Item Value Reference Range Comments MAGNESIUM (BEAKER) (test ksux=969) 2.2 mg/dL 1.6-2.6 BASIC METABOLIC [id number] 07:43:00* Test Item Value Reference Range Comments SODIUM (BEAKER) (test zdrw=018) 137 meq/L 136-145 POTASSIUM (BEAKER) (test aksy=218) 3.7 meq/L 3.5-5.1 CHLORIDE (BEAKER) (test xien=413) 105 meq/L 98-107 CO2 (BEAKER) (test ciku=124) 24 meq/L 22-29 BLOOD UREA NITROGEN (BEAKER) (test lopw=968) 8 mg/dL 7-21 CREATININE (BEAKER) (test skfz=960) 0.72 mg/dL 0.57-1.25 GLUCOSE RANDOM (BEAKER) (test mblu=810) 102 mg/dL 70-105 CALCIUM (BEAKER) (test ppmc=841) 8.9 mg/dL 8.4-10.2 EGFR (BEAKER) (test zyle=7131) 119 mL/min/1.73 sq m ESTIMATED GFR IS NOT ACCURATE CREATININE CLEARANCE IN PREDICTING GLOMERULAR FILTRATION RATE. ESTIMATED GFR IS NOT APPLICABLE FOR DIALYSIS PATIENTS. PROTHROMBIN TIME/[id number] 05:22:00* Test Item Value Reference Range Comments PROTIME (BEAKER) (test komr=027) 13.5 seconds 11.7-14.7 INR (BEAKER) (test kfua=540) 1.0 <=5.9 RECOMMENDED COUMADIN/WARFARIN INR THERAPY RANGESSTANDARD DOSE: 2.0 - 3.0 Inclu vy: PROPHYLAXIS for venous thrombosis, systemic embolization; TREATMENT for wilma ous thrombosis and/or pulmonary embolus.HIGH RISK: Target INR is 2.5-3.5 for pat ients with mechanical heart valves.[id number] 07:44:00* Test Item Value Reference Range Comments MAGNESIUM (BEAKER) (test qhhd=596) 2.0 mg/dL 1.6-2.6 BASIC METABOLIC [id number] 07:44:00* Test Item Value Reference Range Comments SODIUM (BEAKER) (test knip=564) 137 meq/L 136-145 POTASSIUM (BEAKER) (test mupt=006) 3.6 meq/L 3.5-5.1 CHLORIDE (BEAKER) (test rgyb=844) 105 meq/L 98-107 CO2 (BEAKER) (test qayo=265) 21 meq/L 22-29 BLOOD UREA NITROGEN (BEAKER) (test zoex=534) 9 mg/dL 7-21 CREATININE (BEAKER) (test lxkc=913) 0.71 mg/dL 0.57-1.25 GLUCOSE RANDOM (BEAKER) (test vfwd=335) 98 mg/dL 70-105 CALCIUM (BEAKER) (test jxpu=936) 8.8 mg/dL 8.4-10.2 EGFR (BEAKER) (test gdic=5185) 121 mL/min/1.73 sq m ESTIMATED GFR IS NOT ACCURATE CREATININE CLEARANCE IN PREDICTING GLOMERULAR FILTRATION RATE. ESTIMATED GFR IS NOT APPLICABLE FOR DIALYSIS PATIENTS. CBC (HEMOGRAM ONLY)2018-02-12 06:56:00* Test Item Value Reference Range Comments WHITE BLOOD CELL COUNT (BEAKER) (test culk=950) 6.7 K/ L 3.5-10.5 RED BLOOD CELL COUNT (BEAKER) (test dkuu=437) 4.96 M/ L 4.63-6.08 HEMOGLOBIN (BEAKER) (test fjmq=405) 14.9 GM/DL 13.7-17.5 HEMATOCRIT (BEAKER) (test iqav=597) 44.0 % 40.1-51.0 MEAN CORPUSCULAR VOLUME (BEAKER) (test cway=744) 88.7 fL 79.0-92.2 MEAN CORPUSCULAR HEMOGLOBIN (BEAKER) (test iexc=150) 30.0 pg 25.7-32.2 MEAN CORPUSCULAR HEMOGLOBIN CONC (BEAKER) (test xdpo=685) 33.9 GM/DL 32.3-36.5 RED CELL DISTRIBUTION WIDTH (BEAKER) (test xgde=298) 12.3 % 11.6-14.4 PLATELET COUNT (BEAKER) (test sope=223) 225 K/CU MM 150-450 MEAN PLATELET VOLUME (BEAKER) (test gbgs=178) 10.2 fL 9.4-12.4 NUCLEATED RED BLOOD CELLS (BEAKER) (test dfpe=506) 0 /100 WBC 0-0 [id number] 05:00:00* Test Item Value Reference Range Comments MAGNESIUM (BEAKER) (test dfdo=729) 2.3 mg/dL 1.6-2.6 BASIC METABOLIC [id number] 05:00:00* Test Item Value Reference Range Comments SODIUM (BEAKER) (test mrsb=254) 139 meq/L 136-145 POTASSIUM (BEAKER) (test kxni=387) 3.8 meq/L 3.5-5.1 CHLORIDE (BEAKER) (test wqbe=895) 107 meq/L 98-107 CO2 (BEAKER) (test owqo=035) 25 meq/L 22-29 BLOOD UREA NITROGEN (BEAKER) (test jjjo=649) 10 mg/dL 7-21 CREATININE (BEAKER) (test wvgv=977) 0.73 mg/dL 0.57-1.25 GLUCOSE RANDOM (BEAKER) (test nqbm=379) 101 mg/dL 70-105 CALCIUM (BEAKER) (test vfex=904) 8.9 mg/dL 8.4-10.2 EGFR (BEAKER) (test gyug=5245) 117 mL/min/1.73 sq m ESTIMATED GFR IS NOT ACCURATE CREATININE CLEARANCE IN PREDICTING GLOMERULAR FILTRATION RATE. ESTIMATED GFR IS NOT APPLICABLE FOR DIALYSIS PATIENTS. TROPONIN [id number] 08:15:00* Test Item Value Reference Range Comments TROPONIN I (BEAKER) (test gnxy=580) 0.78 ng/mL 0.00-0.03 Troponin I (TnI) levels must be interpreted in the context of the presenting sym ptoms and the clinical findings. Elevated TnI levels indicate myocardial damage, but are not specific for ischemic heart disease. Elevated TnI levels are seen in patients with other cardiac conditions (including myocarditis and congestive h eart failure), and slight TnI elevations occur in patients with other conditions , including sepsis, renal failure, acidosis, acute neurological disease, and per sistent tachyarrhythmia.[id number] 07:17:00* Test Item Value Reference Range Comments POTASSIUM (BEAKER) (test fkfm=527) 3.5 meq/L 3.5-5.1 [id number] 07:17:00* Test Item Value Reference Range Comments MAGNESIUM (BEAKER) (test ytfw=570) 1.7 mg/dL 1.6-2.6 DIGOXIN [id number] 04:31:00* Test Item Value Reference Range Comments DIGOXIN LEVEL (BEAKER) (test cmpq=292) < ng/mL 0.8-2.0 RAD, CHEST, 1 VIEW, NON [id number] 02:01:00Reason for exam:->chest painShould this be performed at the bedside?->YesFINAL REPORT Chest, 1 view. History: Chest pain [...] osseous structures are intact. Signed: Winsome Reina MDReport Verified Date/Time: 02/10/2018 02:01:21 Reading Location: [facility] C0[facility] Transitional Reading Room ONIN [id number] 00:58:00* Test Item Value Reference Range Comments TROPONIN I (BEAKER) (test vvsj=920) 0.69 ng/mL 0.00-0.03 Troponin I (TnI) levels must be interpreted in the context of the presenting sym ptoms and the clinical findings. Elevated TnI levels indicate myocardial damage, but are not specific for ischemic heart disease. Elevated TnI levels are seen in patients with other cardiac conditions (including myocarditis and congestive h eart failure), and slight TnI elevations occur in patients with other conditions , including sepsis, renal failure, acidosis, acute neurological disease, and per sistent tachyarrhythmia.B-TYPE NATRIURETIC FACTOR (BNP)2018-02-10 00:55:00* Test Item Value Reference Range Comments B-TYPE NATRIURETIC PEPTIDE (BEAKER) (test adsp=814) 276 pg/mL 0-100 COMPREHENSIVE METABOLIC [id number] 00:50:00* Test Item Value Reference Range Comments TOTAL PROTEIN (BEAKER) (test thzr=865) 6.9 gm/dL 6.0-8.3 ALBUMIN (BEAKER) (test vyba=0141) 4.1 g/dL 3.5-5.0 ALKALINE PHOSPHATASE (BEAKER) (test atuy=872) 79 U/L 40-150 BILIRUBIN TOTAL (BEAKER) (test yuji=920) 0.7 mg/dL 0.2-1.2 SODIUM (BEAKER) (test ckzi=796) 136 meq/L 136-145 POTASSIUM (BEAKER) (test iqlm=973) 3.5 meq/L 3.5-5.1 CHLORIDE (BEAKER) (test fkei=977) 104 meq/L 98-107 CO2 (BEAKER) (test xaki=294) 24 meq/L 22-29 BLOOD UREA NITROGEN (BEAKER) (test yrzf=819) 12 mg/dL 7-21 CREATININE (BEAKER) (test phxc=876) 0.88 mg/dL 0.57-1.25 GLUCOSE RANDOM (BEAKER) (test gyph=036) 140 mg/dL 70-105 CALCIUM (BEAKER) (test nyud=976) 8.9 mg/dL 8.4-10.2 AST (SGOT) (BEAKER) (test rjof=141) 19 U/L 5-34 ALT (SGPT) (BEAKER) (test rvym=567) 21 U/L 6-55 EGFR (BEAKER) (test uecc=9777) 95 mL/min/1.73 sq m ESTIMATED GFR IS NOT ACCURATE CREATININE CLEARANCE IN PREDICTING GLOMERULAR FILTRATION RATE. ESTIMATED GFR IS NOT APPLICABLE FOR DIALYSIS PATIENTS. [id number] 00:50:00* Test Item Value Reference Range Comments PARTIAL THROMBOPLASTIN TIME (BEAKER) (test ddki=828) 28.0 seconds 22.5-36.0 PROTHROMBIN TIME/[id number] 00:49:00* Test Item Value Reference Range Comments PROTIME (BEAKER) (test vtki=574) 15.2 seconds 11.7-14.7 INR (BEAKER) (test vfbz=292) 1.2 <=5.9 RECOMMENDED COUMADIN/WARFARIN INR THERAPY RANGESSTANDARD DOSE: 2.0 - 3.0 Inclu vy: PROPHYLAXIS for venous thrombosis, systemic embolization; TREATMENT for wilma ous thrombosis and/or pulmonary embolus.HIGH RISK: Target INR is 2.5-3.5 for pat ients with mechanical heart valves.CBC W/PLT COUNT & AUTO [id number] 00:44:00* Test Item Value Reference Range Comments WHITE BLOOD CELL COUNT (BEAKER) (test radg=423) 7.7 K/ L 3.5-10.5 RED BLOOD CELL COUNT (BEAKER) (test qqxv=040) 4.82 M/ L 4.63-6.08 HEMOGLOBIN (BEAKER) (test nxfa=065) 14.4 GM/DL 13.7-17.5 HEMATOCRIT (BEAKER) (test kvav=386) 42.0 % 40.1-51.0 MEAN CORPUSCULAR VOLUME (BEAKER) (test yubt=244) 87.1 fL 79.0-92.2 MEAN CORPUSCULAR HEMOGLOBIN (BEAKER) (test fxvx=865) 29.9 pg 25.7-32.2 MEAN CORPUSCULAR HEMOGLOBIN CONC (BEAKER) (test szeb=471) 34.3 GM/DL 32.3-36.5 RED CELL DISTRIBUTION WIDTH (BEAKER) (test heei=762) 12.2 % 11.6-14.4 PLATELET COUNT (BEAKER) (test dawk=905) 227 K/CU MM 150-450 MEAN PLATELET VOLUME (BEAKER) (test ntvo=680) 9.5 fL 9.4-12.4 NUCLEATED RED BLOOD CELLS (BEAKER) (test dznt=816) 0 /100 WBC 0-0 NEUTROPHILS RELATIVE PERCENT (BEAKER) (test jnzc=117) 83 % LYMPHOCYTES RELATIVE PERCENT (BEAKER) (test wngj=870) 10 % MONOCYTES RELATIVE PERCENT (BEAKER) (test bzkj=250) 6 % EOSINOPHILS RELATIVE PERCENT (BEAKER) (test uygt=847) 0 % BASOPHILS RELATIVE PERCENT (BEAKER) (test awoj=360) 0 % NEUTROPHILS ABSOLUTE COUNT (BEAKER) (test hicn=519) 6.38 K/ L 1.78-5.38 LYMPHOCYTES ABSOLUTE COUNT (BEAKER) (test ivkj=260) 0.77 K/ L 1.32-3.57 MONOCYTES ABSOLUTE COUNT (BEAKER) (test xrml=292) 0.45 K/ L 0.30-0.82 EOSINOPHILS ABSOLUTE COUNT (BEAKER) (test asxn=083) 0.03 K/ L 0.04-0.54 BASOPHILS ABSOLUTE COUNT (BEAKER) (test gcsz=125) 0.01 K/ L 0.01-0.08 IMMATURE GRANULOCYTES-RELATIVE PERCENT (BEAKER) (test ivxj=8476) 0 % 0-1 CXR 1 VEW - [id number] 22:47:00 [place] [address] Patient Name: GHULAM RUBIO MR #: [id number] : 1975 Age/Sex: 42/M Req #: [id number] Adm Physician: Ordered by: DIMITRI FOX MD Report #: [id number] Location: [facility] Room/Bed: Procedure: [id number] HOPD/CXR 1 VEW - HOPD Miguel zuniga Date: 02/09/18 Exam Time: 2134 REPORT STATUS: Signed EXAMINATION: CXR 1 VEW - HOPD INDICATION: Dizzine ss since morning COMPARISON: None FINDINGS: TUBES and LINES: AICD is intact. LUNGS: Lungs are not well inflated. Lungs are clear. T here is no evidence of pneumonia or pulmonary edema. PLEURA: No pleural effusion or pneumothorax. HEART AND MEDIASTINUM: The cardiomediastinal quentin houette is unremarkable. BONES AND SOFT TISSUES: No acute osseous lesi on. Soft tissues are unremarkable. UPPER ABDOMEN: No free air under the diaphragm. IMPRESSION: No acute thoracic abnormality. Signed by: Dr. Harshad Callejas M.D. on 02/09/2018 10:48 PM Dictated By: HARSHAD GARZON MD 46 Transcribed By: JOSE on 02/09/182247 COPY TO: DIMITRI FOX MD POCT-GLUCOSE [id number] 08:14:00* Test Item Value Reference Range Comments POC-GLUCOSE METER (BEAKER) (test bwlu=2842) 106 mg/dL 70-110 TESTED AT [place] [address] BASIC METABOLIC [id number] 07:42:00* Test Item Value Reference Range Comments SODIUM (BEAKER) (test kuwx=234) 136 meq/L 136-145 POTASSIUM (BEAKER) (test ocfp=065) 3.8 meq/L 3.5-5.1 CHLORIDE (BEAKER) (test qzjq=233) 106 meq/L 98-107 CO2 (BEAKER) (test sbam=600) 20 meq/L 22-29 BLOOD UREA NITROGEN (BEAKER) (test biit=773) 15 mg/dL 7-21 CREATININE (BEAKER) (test lzhp=487) 0.79 mg/dL 0.57-1.25 GLUCOSE RANDOM (BEAKER) (test jjni=134) 107 mg/dL 70-105 CALCIUM (BEAKER) (test xdlv=844) 9.3 mg/dL 8.4-10.2 EGFR (BEAKER) (test supt=6614) 107 mL/min/1.73 sq m ESTIMATED GFR IS NOT ACCURATE CREATININE CLEARANCE IN PREDICTING GLOMERULAR FILTRATION RATE. ESTIMATED GFR IS NOT APPLICABLE FOR DIALYSIS PATIENTS. BASIC METABOLIC [id number] 09:15:00* Test Item Value Reference Range Comments SODIUM (BEAKER) (test aaro=926) 136 meq/L 136-145 POTASSIUM (BEAKER) (test yktj=833) 3.7 meq/L 3.5-5.1 CHLORIDE (BEAKER) (test nozo=509) 103 meq/L 98-107 CO2 (BEAKER) (test chnb=766) 24 meq/L 22-29 BLOOD UREA NITROGEN (BEAKER) (test jsds=263) 15 mg/dL 7-21 CREATININE (BEAKER) (test ufdw=815) 0.80 mg/dL 0.57-1.25 GLUCOSE RANDOM (BEAKER) (test bqec=229) 107 mg/dL 70-105 CALCIUM (BEAKER) (test sybj=814) 9.7 mg/dL 8.4-10.2 EGFR (BEAKER) (test mbdg=5308) 106 mL/min/1.73 sq m ESTIMATED GFR IS NOT ACCURATE CREATININE CLEARANCE IN PREDICTING GLOMERULAR FILTRATION RATE. ESTIMATED GFR IS NOT APPLICABLE FOR DIALYSIS PATIENTS. BASIC METABOLIC [id number] 06:44:00* Test Item Value Reference Range Comments SODIUM (BEAKER) (test hdtc=833) 134 meq/L 136-145 POTASSIUM (BEAKER) (test bdax=215) 4.1 meq/L 3.5-5.1 CHLORIDE (BEAKER) (test cuto=374) 103 meq/L 98-107 CO2 (BEAKER) (test skno=756) 20 meq/L 22-29 BLOOD UREA NITROGEN (BEAKER) (test idps=694) 20 mg/dL 7-21 CREATININE (BEAKER) (test vkuv=695) 0.78 mg/dL 0.57-1.25 GLUCOSE RANDOM (BEAKER) (test wuzz=324) 101 mg/dL 70-105 CALCIUM (BEAKER) (test mqbo=557) 9.5 mg/dL 8.4-10.2 EGFR (BEAKER) (test tfwy=5456) 109 mL/min/1.73 sq m ESTIMATED GFR IS NOT ACCURATE CREATININE CLEARANCE IN PREDICTING GLOMERULAR FILTRATION RATE. ESTIMATED GFR IS NOT APPLICABLE FOR DIALYSIS PATIENTS. POCT-GLUCOSE [id number] 17:28:00* Test Item Value Reference Range Comments POC-GLUCOSE METER (BEAKER) (test naej=7861) 115 mg/dL 70-110 TESTED AT [facility] [address] [place] [address] POCT-GLUCOSE [id number] 12:37:00* Test Item Value Reference Range Comments POC-GLUCOSE METER (BEAKER) (test pyey=0175) 85 mg/dL 70-110 TESTED AT [address] [address] BASIC METABOLIC [id number] 04:38:00* Test Item Value Reference Range Comments SODIUM (BEAKER) (test obcs=639) 136 meq/L 136-145 POTASSIUM (BEAKER) (test edne=078) 3.8 meq/L 3.5-5.1 CHLORIDE (BEAKER) (test qwvq=523) 101 meq/L 98-107 CO2 (BEAKER) (test ahlo=071) 23 meq/L 22-29 BLOOD UREA NITROGEN (BEAKER) (test biwl=822) 14 mg/dL 7-21 CREATININE (BEAKER) (test sddh=796) 0.79 mg/dL 0.57-1.25 GLUCOSE RANDOM (BEAKER) (test ycha=404) 108 mg/dL 70-105 CALCIUM (BEAKER) (test jfsr=717) 10.1 mg/dL 8.4-10.2 EGFR (BEAKER) (test dtyn=5444) 107 mL/min/1.73 sq m ESTIMATED GFR IS NOT ACCURATE CREATININE CLEARANCE IN PREDICTING GLOMERULAR FILTRATION RATE. ESTIMATED GFR IS NOT APPLICABLE FOR DIALYSIS PATIENTS. POCT-GLUCOSE [id number] 22:00:00* Test Item Value Reference Range Comments POC-GLUCOSE METER (BEAKER) (test zuup=6982) 132 mg/dL 70-110 TESTED AT [address] [address] POCT-GLUCOSE [id number] 17:41:00* Test Item Value Reference Range Comments POC-GLUCOSE METER (BEAKER) (test osma=7075) 108 mg/dL 70-110 TESTED AT [address] [address] CBC W/PLT COUNT & AUTO [id number] 16:47:00* Test Item Value Reference Range Comments WHITE BLOOD CELL COUNT (BEAKER) (test lsge=242) 9.2 K/ L 3.5-10.5 RED BLOOD CELL COUNT (BEAKER) (test fzwh=745) 3.68 M/ L 4.63-6.08 HEMOGLOBIN (BEAKER) (test erlx=733) 11.7 GM/DL 13.7-17.5 HEMATOCRIT (BEAKER) (test dchz=238) 35.2 % 40.1-51.0 MEAN CORPUSCULAR VOLUME (BEAKER) (test dvcm=691) 95.7 fL 79.0-92.2 MEAN CORPUSCULAR HEMOGLOBIN (BEAKER) (test fgqn=577) 31.8 pg 25.7-32.2 MEAN CORPUSCULAR HEMOGLOBIN CONC (BEAKER) (test timu=854) 33.2 GM/DL 32.3-36.5 RED CELL DISTRIBUTION WIDTH (BEAKER) (test aaft=684) 13.7 % 11.6-14.4 PLATELET COUNT (BEAKER) (test edhp=862) 257 K/CU MM 150-450 MEAN PLATELET VOLUME (BEAKER) (test higy=480) 11.1 fL 9.4-12.4 NUCLEATED RED BLOOD CELLS (BEAKER) (test qwam=640) 0 /100 WBC 0-0 NEUTROPHILS RELATIVE PERCENT (BEAKER) (test ybxw=923) 67 % LYMPHOCYTES RELATIVE PERCENT (BEAKER) (test ssul=530) 20 % MONOCYTES RELATIVE PERCENT (BEAKER) (test sbpv=508) 9 % EOSINOPHILS RELATIVE PERCENT (BEAKER) (test ojyc=826) 4 % BASOPHILS RELATIVE PERCENT (BEAKER) (test qplq=357) 0 % NEUTROPHILS ABSOLUTE COUNT (BEAKER) (test iudq=741) 6.14 K/ L 1.78-5.38 LYMPHOCYTES ABSOLUTE COUNT (BEAKER) (test pevk=210) 1.83 K/ L 1.32-3.57 MONOCYTES ABSOLUTE COUNT (BEAKER) (test lrco=326) 0.84 K/ L 0.30-0.82 EOSINOPHILS ABSOLUTE COUNT (BEAKER) (test adny=653) 0.33 K/ L 0.04-0.54 BASOPHILS ABSOLUTE COUNT (BEAKER) (test dmjo=110) 0.02 K/ L 0.01-0.08 IMMATURE GRANULOCYTES-RELATIVE PERCENT (BEAKER) (test hgvs=0137) 0 % 0-1 POCT-GLUCOSE [id number] 12:46:00* Test Item Value Reference Range Comments POC-GLUCOSE METER (BEAKER) (test ujfz=6907) 107 mg/dL 70-110 TESTED AT [facility] [address] [facility] [address] POCT-GLUCOSE [id number] 06:19:00* Test Item Value Reference Range Comments POC-GLUCOSE METER (BEAKER) (test nmie=7900) 124 mg/dL 70-110 TESTED AT [facility] [address] [facility] [address] BASIC METABOLIC [id number] 06:11:00* Test Item Value Reference Range Comments SODIUM (BEAKER) (test hypm=266) 137 meq/L 136-145 POTASSIUM (BEAKER) (test slha=771) 3.7 meq/L 3.5-5.1 CHLORIDE (BEAKER) (test kdht=885) 101 meq/L 98-107 CO2 (BEAKER) (test ojod=459) 25 meq/L 22-29 BLOOD UREA NITROGEN (BEAKER) (test jsfb=523) 17 mg/dL 7-21 CREATININE (BEAKER) (test rqho=194) 0.76 mg/dL 0.57-1.25 GLUCOSE RANDOM (BEAKER) (test nlvh=486) 103 mg/dL 70-105 CALCIUM (BEAKER) (test wytq=521) 9.7 mg/dL 8.4-10.2 EGFR (BEAKER) (test tynq=0853) 112 mL/min/1.73 sq m ESTIMATED GFR IS NOT ACCURATE CREATININE CLEARANCE IN PREDICTING GLOMERULAR FILTRATION RATE. ESTIMATED GFR IS NOT APPLICABLE FOR DIALYSIS PATIENTS. B-TYPE NATRIURETIC FACTOR (BNP)2017-12-09 06:06:00* Test Item Value Reference Range Comments B-TYPE NATRIURETIC PEPTIDE (BEAKER) (test rcfs=540) 892 pg/mL 0-100 POCT-GLUCOSE [id number] 00:26:00* Test Item Value Reference Range Comments POC-GLUCOSE METER (BEAKER) (test lgpj=8953) 127 mg/dL 70-110 TESTED AT [facility] [address] [facility] [address] RAD, CHEST, 1 VIEW, NON [id number] 17:48:00Reason for exam:->c/o congestion - eval vol statusShould this be performed at the bedside?->YesFINAL REPORT Chest One view: Reason for exam: Congestion Comparison Study: Chest x-ray, 12/03/2017 Discussion: Perivascular congestion has developed. There is no pleural effusion or pneumothorax. The cardiac silhouette is enlarged. A multilead cardiac conduction device and feeding tube are seen. Impression: Pulmonary vascular congestion. Signed: Matt Dumont [facility] ed Date/Time: 12/08/2017 17:48:30 Reading Location: [facility] B1 [id number] Ortho Consult Reading Room 0 5:48 PM POCT-GLUCOSE [id number] 17:31:00* Test Item Value Reference Range Comments POC-GLUCOSE METER (BEAKER) (test epqs=9971) 105 mg/dL 70-110 TESTED AT [facility] [address] [facility] [address] POCT-GLUCOSE [id number] 12:04:00* Test Item Value Reference Range Comments POC-GLUCOSE METER (BEAKER) (test alqy=4474) 107 mg/dL 70-110 TESTED AT [place] [id number] [facility] [address] CBC W/PLT COUNT & AUTO [id number] 10:20:00* Test Item Value Reference Range Comments WHITE BLOOD CELL COUNT (BEAKER) (test lfmj=498) 11.6 K/ L 3.5-10.5 RED BLOOD CELL COUNT (BEAKER) (test xecl=410) 3.67 M/ L 4.63-6.08 HEMOGLOBIN (BEAKER) (test fajn=567) 11.4 GM/DL 13.7-17.5 HEMATOCRIT (BEAKER) (test lorx=561) 34.4 % 40.1-51.0 MEAN CORPUSCULAR VOLUME (BEAKER) (test sdkr=994) 93.7 fL 79.0-92.2 MEAN CORPUSCULAR HEMOGLOBIN (BEAKER) (test hcjd=431) 31.1 pg 25.7-32.2 MEAN CORPUSCULAR HEMOGLOBIN CONC (BEAKER) (test olpg=603) 33.1 GM/DL 32.3-36.5 RED CELL DISTRIBUTION WIDTH (BEAKER) (test cumd=054) 13.5 % 11.6-14.4 PLATELET COUNT (BEAKER) (test pjdr=096) 275 K/CU MM 150-450 MEAN PLATELET VOLUME (BEAKER) (test lnzy=888) 11.5 fL 9.4-12.4 NUCLEATED RED BLOOD CELLS (BEAKER) (test ldwp=513) 0 /100 WBC 0-0 NEUTROPHILS RELATIVE PERCENT (BEAKER) (test lvuk=205) 70 % LYMPHOCYTES RELATIVE PERCENT (BEAKER) (test ogrs=126) 17 % MONOCYTES RELATIVE PERCENT (BEAKER) (test zapn=031) 8 % EOSINOPHILS RELATIVE PERCENT (BEAKER) (test vbgi=132) 4 % BASOPHILS RELATIVE PERCENT (BEAKER) (test vslp=048) 0 % NEUTROPHILS ABSOLUTE COUNT (BEAKER) (test mkah=924) 8.14 K/ L 1.78-5.38 LYMPHOCYTES ABSOLUTE COUNT (BEAKER) (test vzyn=442) 1.96 K/ L 1.32-3.57 MONOCYTES ABSOLUTE COUNT (BEAKER) (test lyfm=620) 0.94 K/ L 0.30-0.82 EOSINOPHILS ABSOLUTE COUNT (BEAKER) (test exwd=372) 0.50 K/ L 0.04-0.54 BASOPHILS ABSOLUTE COUNT (BEAKER) (test knng=277) 0.02 K/ L 0.01-0.08 IMMATURE GRANULOCYTES-RELATIVE PERCENT (BEAKER) (test farn=4602) 1 % 0-1 BASIC METABOLIC [id number] 09:49:00* Test Item Value Reference Range Comments SODIUM (BEAKER) (test iwda=640) 139 meq/L 136-145 POTASSIUM (BEAKER) (test ryny=219) 3.6 meq/L 3.5-5.1 CHLORIDE (BEAKER) (test bnpz=837) 101 meq/L 98-107 CO2 (BEAKER) (test nnwn=560) 29 meq/L 22-29 BLOOD UREA NITROGEN (BEAKER) (test xssu=880) 14 mg/dL 7-21 CREATININE (BEAKER) (test xayy=343) 0.71 mg/dL 0.57-1.25 GLUCOSE RANDOM (BEAKER) (test styn=067) 127 mg/dL 70-105 CALCIUM (BEAKER) (test kyik=246) 9.6 mg/dL 8.4-10.2 EGFR (BEAKER) (test fiti=6850) 121 mL/min/1.73 sq m ESTIMATED GFR IS NOT ACCURATE CREATININE CLEARANCE IN PREDICTING GLOMERULAR FILTRATION RATE. ESTIMATED GFR IS NOT APPLICABLE FOR DIALYSIS PATIENTS. CBC (HEMOGRAM ONLY)2017-12-08 07:44:00* Test Item Value Reference Range Comments WHITE BLOOD CELL COUNT (BEAKER) (test krqb=366) 5.5 K/ L 3.5-10.5 Clotted tube;corrected report called to #[id number].This is a corrected result. Previous result was 5.5 K/ L on 12/08/2017 at 23 CDT RED BLOOD CELL COUNT (BEAKER) (test ydtc=936) 2.69 M/ L 4.63-6.08 This is a corrected result. Previous result was 2.69 M/ L on 12/08/2017 at 23 CDT HEMOGLOBIN (BEAKER) (test bggs=411) 8.6 GM/DL 13.7-17.5 This is a corrected result. Previous result was 8.6 GM/DL on 12/08/2017 at 23 CDT HEMATOCRIT (BEAKER) (test jiht=736) 26.1 % 40.1-51.0 This is a corrected result. Previous result was 26.1 % on 12/08/2017 at 23 T MEAN CORPUSCULAR VOLUME (BEAKER) (test sfsz=761) 97.0 fL 79.0-92.2 This is a corrected result. Previous result was 97.0 fL on 12/08/2017 at 23 CDT MEAN CORPUSCULAR HEMOGLOBIN (BEAKER) (test fmqd=516) 32.0 pg 25.7-32.2 This is a corrected result. Previous result was 32.0 pg on 12/08/2017 at 23 CDT MEAN CORPUSCULAR HEMOGLOBIN CONC (BEAKER) (test tqph=411) 33.0 GM/DL 32.3-36.5 This is a corrected result. Previous result was 33.0 GM/DL on 12/08/2017 at 23 CDT RED CELL DISTRIBUTION WIDTH (BEAKER) (test zotg=068) 14.6 % 11.6-14.4 This is a corrected result. Previous result was 14.6 % on 12/08/2017 at 23 CDT PLATELET COUNT (BEAKER) (test vcik=720) 26 K/CU MM 150-450 This is a corrected result. Previous result was 26 K/CU MM on 12/08/2017 at 23 CDT NUCLEATED RED BLOOD CELLS (BEAKER) (test vmrw=978) 0 /100 WBC 0-0 This is a corrected result. Previous result was 0 /100 WBC on 12/08/2017 at 0723 CDT POCT-GLUCOSE [id number] 06:03:00* Test Item Value Reference Range Comments POC-GLUCOSE METER (BEAKER) (test ywjx=6296) 129 mg/dL 70-110 TESTED AT [address] [address] POCT-GLUCOSE [id number] 23:48:00* Test Item Value Reference Range Comments POC-GLUCOSE METER (BEAKER) (test pmnt=4361) 142 mg/dL 70-110 TESTED AT [address] [address] POCT-GLUCOSE [id number] 17:41:00* Test Item Value Reference Range Comments POC-GLUCOSE METER (BEAKER) (test nbkd=1411) 94 mg/dL 70-110 TESTED AT [address] [address] POCT-GLUCOSE [id number] 12:26:00* Test Item Value Reference Range Comments POC-GLUCOSE METER (BEAKER) (test wllt=6593) 119 mg/dL 70-110 TESTED AT [address] [address] POCT-GLUCOSE [id number] 06:00:00* Test Item Value Reference Range Comments POC-GLUCOSE METER (BEAKER) (test lhgb=6766) 139 mg/dL 70-110 TESTED AT [address] [address] POCT-GLUCOSE [id number] 00:10:00* Test Item Value Reference Range Comments POC-GLUCOSE METER (BEAKER) (test itbw=1516) 137 mg/dL 70-110 TESTED AT [address] [address] POCT-GLUCOSE [id number] 18:44:00* Test Item Value Reference Range Comments POC-GLUCOSE METER (BEAKER) (test qpog=1374) 130 mg/dL 70-110 TESTED AT [address] [address] POCT-GLUCOSE [id number] 11:44:00* Test Item Value Reference Range Comments POC-GLUCOSE METER (BEAKER) (test jlce=2463) 143 mg/dL 70-110 TESTED AT [address] [address] VITAMIN B12 AND [id number] 07:27:00* Test Item Value Reference Range Comments VITAMIN B12 (BEAKER) (test idgq=956) 648 pg/mL 213-816 FOLATE (BEAKER) (test oxic=374) 11.5 ng/mL >=7.0 BASIC METABOLIC [id number] 07:00:00* Test Item Value Reference Range Comments SODIUM (BEAKER) (test cdsg=545) 141 meq/L 136-145 POTASSIUM (BEAKER) (test auxu=835) 3.6 meq/L 3.5-5.1 CHLORIDE (BEAKER) (test njzb=791) 110 meq/L 98-107 CO2 (BEAKER) (test lzsp=580) 25 meq/L 22-29 BLOOD UREA NITROGEN (BEAKER) (test hwmu=266) 17 mg/dL 7-21 CREATININE (BEAKER) (test snys=755) 0.72 mg/dL 0.57-1.25 GLUCOSE RANDOM (BEAKER) (test xxmx=625) 109 mg/dL 70-105 CALCIUM (BEAKER) (test htbk=521) 8.4 mg/dL 8.4-10.2 EGFR (BEAKER) (test nozo=8327) 119 mL/min/1.73 sq m ESTIMATED GFR IS NOT ACCURATE CREATININE CLEARANCE IN PREDICTING GLOMERULAR FILTRATION RATE. ESTIMATED GFR IS NOT APPLICABLE FOR DIALYSIS PATIENTS. POCT-GLUCOSE [id number] 20:43:00* Test Item Value Reference Range Comments POC-GLUCOSE METER (BEAKER) (test oukn=5744) 114 mg/dL 70-110 TESTED AT [facility] [address] [facility] [address] [id number] 17:10:00* Test Item Value Reference Range Comments POTASSIUM (BEAKER) (test ajdd=812) 4.0 meq/L 3.5-5.1 Check Serum Potassium level 2 hours after oral potassium replacement completed o r 30 min after intravenous potassium replacement.[id number] 12:57:00* Test Item Value Reference Range Comments POTASSIUM (BEAKER) (test cins=183) 3.4 meq/L 3.5-5.1 Check Serum Potassium level 2 hours after oral potassium replacement completed o r 30 min after intravenous potassium replacement.[id number] 12:57:00* Test Item Value Reference Range Comments MAGNESIUM (BEAKER) (test pgsx=134) 2.1 mg/dL 1.6-2.6 Check Serum Potassium level 2 hours after oral potassium replacement completed o r 30 min after intravenous potassium replacement.BASIC METABOLIC [id number] 07:18:00* Test Item Value Reference Range Comments SODIUM (BEAKER) (test oqpn=959) 146 meq/L 136-145 POTASSIUM (BEAKER) (test pssw=617) 3.2 meq/L 3.5-5.1 CHLORIDE (BEAKER) (test kmfc=215) 114 meq/L 98-107 CO2 (BEAKER) (test kjbw=207) 24 meq/L 22-29 BLOOD UREA NITROGEN (BEAKER) (test koqi=614) 20 mg/dL 7-21 CREATININE (BEAKER) (test hbpt=111) 0.70 mg/dL 0.57-1.25 GLUCOSE RANDOM (BEAKER) (test irrt=336) 102 mg/dL 70-105 CALCIUM (BEAKER) (test ggbi=040) 8.8 mg/dL 8.4-10.2 EGFR (BEAKER) (test yppv=2713) 123 mL/min/1.73 sq m ESTIMATED GFR IS NOT ACCURATE CREATININE CLEARANCE IN PREDICTING GLOMERULAR FILTRATION RATE. ESTIMATED GFR IS NOT APPLICABLE FOR DIALYSIS PATIENTS. [id number] 07:18:00* Test Item Value Reference Range Comments MAGNESIUM (BEAKER) (test ablc=702) 1.9 mg/dL 1.6-2.6 [id number] 07:18:00* Test Item Value Reference Range Comments PHOSPHORUS (BEAKER) (test dfao=340) 3.6 mg/dL 2.3-4.7 CBC W/PLT COUNT & AUTO [id number] 07:01:00* Test Item Value Reference Range Comments WHITE BLOOD CELL COUNT (BEAKER) (test qyyp=501) 11.8 K/ L 3.5-10.5 RED BLOOD CELL COUNT (BEAKER) (test ufuj=330) 3.04 M/ L 4.63-6.08 HEMOGLOBIN (BEAKER) (test zpaz=591) 9.5 GM/DL 13.7-17.5 HEMATOCRIT (BEAKER) (test ksgy=979) 30.2 % 40.1-51.0 MEAN CORPUSCULAR VOLUME (BEAKER) (test pdet=364) 99.3 fL 79.0-92.2 MEAN CORPUSCULAR HEMOGLOBIN (BEAKER) (test bqwv=885) 31.3 pg 25.7-32.2 MEAN CORPUSCULAR HEMOGLOBIN CONC (BEAKER) (test fscj=053) 31.5 GM/DL 32.3-36.5 RED CELL DISTRIBUTION WIDTH (BEAKER) (test tvis=736) 13.2 % 11.6-14.4 PLATELET COUNT (BEAKER) (test cwpy=633) 187 K/CU MM 150-450 MEAN PLATELET VOLUME (BEAKER) (test clgv=480) 12.3 fL 9.4-12.4 NUCLEATED RED BLOOD CELLS (BEAKER) (test bdki=807) 1 /100 WBC 0-0 NEUTROPHILS RELATIVE PERCENT (BEAKER) (test ozkb=577) 70 % LYMPHOCYTES RELATIVE PERCENT (BEAKER) (test ucaa=931) 18 % MONOCYTES RELATIVE PERCENT (BEAKER) (test vwcy=578) 6 % EOSINOPHILS RELATIVE PERCENT (BEAKER) (test dabf=885) 5 % BASOPHILS RELATIVE PERCENT (BEAKER) (test dnnh=974) 0 % NEUTROPHILS ABSOLUTE COUNT (BEAKER) (test twjr=786) 8.22 K/ L 1.78-5.38 LYMPHOCYTES ABSOLUTE COUNT (BEAKER) (test gpes=026) 2.14 K/ L 1.32-3.57 MONOCYTES ABSOLUTE COUNT (BEAKER) (test tdbx=945) 0.76 K/ L 0.30-0.82 EOSINOPHILS ABSOLUTE COUNT (BEAKER) (test ffxb=487) 0.58 K/ L 0.04-0.54 BASOPHILS ABSOLUTE COUNT (BEAKER) (test pxpo=011) 0.03 K/ L 0.01-0.08 IMMATURE GRANULOCYTES-RELATIVE PERCENT (BEAKER) (test psil=3354) 1 % 0-1 ANAEROBIC [id number] 01:51:00* Test Item Value Reference Range Comments CULTURE (BEAKER) (test oaat=2464) No anaerobes isolated POCT-GLUCOSE [id number] 18:19:00* Test Item Value Reference Range Comments POC-GLUCOSE METER (BEAKER) (test ulvy=8666) 114 mg/dL 70-110 TESTED AT [facility] [address] [facility] [address] BLOOD [id number] 18:00:00* Test Item Value Reference Range Comments CULTURE (BEAKER) (test ujmc=8656) No growth in 5 days BLOOD [id number] 18:00:00* Test Item Value Reference Range Comments CULTURE (BEAKER) (test dlyf=3672) No growth in 5 days BASIC METABOLIC [id number] 13:59:00* Test Item Value Reference Range Comments SODIUM (BEAKER) (test qygm=299) 146 meq/L 136-145 POTASSIUM (BEAKER) (test xumj=311) 3.6 meq/L 3.5-5.1 CHLORIDE (BEAKER) (test fabu=393) 116 meq/L 98-107 CO2 (BEAKER) (test pyok=608) 23 meq/L 22-29 BLOOD UREA NITROGEN (BEAKER) (test bozj=761) 24 mg/dL 7-21 CREATININE (BEAKER) (test icpc=666) 0.78 mg/dL 0.57-1.25 GLUCOSE RANDOM (BEAKER) (test xcgt=513) 139 mg/dL 70-105 CALCIUM (BEAKER) (test oaur=312) 8.5 mg/dL 8.4-10.2 EGFR (BEAKER) (test fnlm=4902) 109 mL/min/1.73 sq m ESTIMATED GFR IS NOT ACCURATE CREATININE CLEARANCE IN PREDICTING GLOMERULAR FILTRATION RATE. ESTIMATED GFR IS NOT APPLICABLE FOR DIALYSIS PATIENTS. [id number] 04:56:00* Test Item Value Reference Range Comments PHOSPHORUS (BEAKER) (test sjej=927) 4.0 mg/dL 2.3-4.7 [id number] 04:56:00* Test Item Value Reference Range Comments MAGNESIUM (BEAKER) (test ovsx=787) 2.1 mg/dL 1.6-2.6 BASIC METABOLIC [id number] 04:56:00* Test Item Value Reference Range Comments SODIUM (BEAKER) (test xrlj=980) 147 meq/L 136-145 POTASSIUM (BEAKER) (test blpj=447) 3.3 meq/L 3.5-5.1 CHLORIDE (BEAKER) (test caiq=717) 117 meq/L 98-107 CO2 (BEAKER) (test fzxv=007) 22 meq/L 22-29 BLOOD UREA NITROGEN (BEAKER) (test bmcw=048) 30 mg/dL 7-21 CREATININE (BEAKER) (test rpme=858) 0.84 mg/dL 0.57-1.25 GLUCOSE RANDOM (BEAKER) (test uzai=846) 134 mg/dL 70-105 CALCIUM (BEAKER) (test slwq=048) 8.6 mg/dL 8.4-10.2 EGFR (BEAKER) (test ardt=6192) 100 mL/min/1.73 sq m ESTIMATED GFR IS NOT ACCURATE CREATININE CLEARANCE IN PREDICTING GLOMERULAR FILTRATION RATE. ESTIMATED GFR IS NOT APPLICABLE FOR DIALYSIS PATIENTS. CBC W/PLT COUNT & AUTO [id number] 04:28:00* Test Item Value Reference Range Comments WHITE BLOOD CELL COUNT (BEAKER) (test msut=137) 12.0 K/ L 3.5-10.5 RED BLOOD CELL COUNT (BEAKER) (test hzah=236) 3.04 M/ L 4.63-6.08 HEMOGLOBIN (BEAKER) (test oncn=022) 9.6 GM/DL 13.7-17.5 HEMATOCRIT (BEAKER) (test akjt=418) 30.8 % 40.1-51.0 MEAN CORPUSCULAR VOLUME (BEAKER) (test zhod=834) 101.3 fL 79.0-92.2 MEAN CORPUSCULAR HEMOGLOBIN (BEAKER) (test anjm=199) 31.6 pg 25.7-32.2 MEAN CORPUSCULAR HEMOGLOBIN CONC (BEAKER) (test afni=676) 31.2 GM/DL 32.3-36.5 RED CELL DISTRIBUTION WIDTH (BEAKER) (test vvim=433) 13.6 % 11.6-14.4 PLATELET COUNT (BEAKER) (test jbdf=763) 177 K/CU MM 150-450 MEAN PLATELET VOLUME (BEAKER) (test kbhx=574) 11.4 fL 9.4-12.4 NUCLEATED RED BLOOD CELLS (BEAKER) (test hggf=604) 1 /100 WBC 0-0 NEUTROPHILS RELATIVE PERCENT (BEAKER) (test wmkl=332) 71 % LYMPHOCYTES RELATIVE PERCENT (BEAKER) (test bjwm=021) 18 % MONOCYTES RELATIVE PERCENT (BEAKER) (test nngm=685) 7 % EOSINOPHILS RELATIVE PERCENT (BEAKER) (test ktlc=815) 3 % BASOPHILS RELATIVE PERCENT (BEAKER) (test nfjc=484) 0 % NEUTROPHILS ABSOLUTE COUNT (BEAKER) (test hhsa=582) 8.45 K/ L 1.78-5.38 LYMPHOCYTES ABSOLUTE COUNT (BEAKER) (test ciha=952) 2.16 K/ L 1.32-3.57 MONOCYTES ABSOLUTE COUNT (BEAKER) (test skht=591) 0.83 K/ L 0.30-0.82 EOSINOPHILS ABSOLUTE COUNT (BEAKER) (test rhbf=650) 0.39 K/ L 0.04-0.54 BASOPHILS ABSOLUTE COUNT (BEAKER) (test fxlq=524) 0.04 K/ L 0.01-0.08 IMMATURE GRANULOCYTES-RELATIVE PERCENT (BEAKER) (test dwjf=2934) 1 % 0-1 BASIC METABOLIC [id number] 23:11:00* Test Item Value Reference Range Comments SODIUM (BEAKER) (test qxoa=394) 150 meq/L 136-145 POTASSIUM (BEAKER) (test mmii=880) 3.5 meq/L 3.5-5.1 CHLORIDE (BEAKER) (test wrxn=398) 119 meq/L 98-107 CO2 (BEAKER) (test stxy=067) 23 meq/L 22-29 BLOOD UREA NITROGEN (BEAKER) (test ygtz=080) 31 mg/dL 7-21 CREATININE (BEAKER) (test occi=858) 0.87 mg/dL 0.57-1.25 GLUCOSE RANDOM (BEAKER) (test kizu=487) 125 mg/dL 70-105 CALCIUM (BEAKER) (test bspz=426) 8.7 mg/dL 8.4-10.2 EGFR (BEAKER) (test umuh=8484) 96 mL/min/1.73 sq m ESTIMATED GFR IS NOT ACCURATE CREATININE CLEARANCE IN PREDICTING GLOMERULAR FILTRATION RATE. ESTIMATED GFR IS NOT APPLICABLE FOR DIALYSIS PATIENTS. TSH/FREE T4 IF [id number] 20:27:00* Test Item Value Reference Range Comments THYROID STIMULATING HORMONE (BEAKER) (test dyzm=698) 2.68 uIU/mL 0.35-4.94 RAD, CHEST, 1 VIEW, NON [id number] 14:43:00Reason for exam:->Desaturation, dyspneaShould this be performed at the bedside?->YesFINAL REPORT Chest one view INDICATION: Desaturation, dyspnea COMPARISON: 12/02/2017 IMPRESSION: ET tube has been removed. Feeding tube, right jugular line, and left chest ICD are again noted. The cardiac silhouette is enlarged. There is mild pulmonary vascular congestion. Improved basilar opacities suggest decreased atelectasis. There is mild left costophrenic angle blunting. No pneumothorax is seen. Signed: Maty Hobbs MDReport Verified Date/Time: 12/03/2017 14:43:45 Reading Location: [address] Consult Reading Room LALITY, SERUM 2017-12-03 14:19:00* Test Item Value Reference Range Comments OSMOLALITY, SERUM (BEAKER) (test hiyv=125) 338 mOsm/kg 275-295 BASIC METABOLIC [id number] 13:00:00* Test Item Value Reference Range Comments SODIUM (BEAKER) (test zijv=781) 157 meq/L 136-145 POTASSIUM (BEAKER) (test wqkq=039) 3.8 meq/L 3.5-5.1 CHLORIDE (BEAKER) (test pmrv=682) 124 meq/L 98-107 CO2 (BEAKER) (test vdgu=899) 22 meq/L 22-29 BLOOD UREA NITROGEN (BEAKER) (test pfoe=134) 29 mg/dL 7-21 CREATININE (BEAKER) (test ihkn=865) 0.86 mg/dL 0.57-1.25 GLUCOSE RANDOM (BEAKER) (test pelk=504) 105 mg/dL 70-105 CALCIUM (BEAKER) (test uzjn=452) 9.0 mg/dL 8.4-10.2 EGFR (BEAKER) (test elxs=2618) 97 mL/min/1.73 sq m ESTIMATED GFR IS NOT ACCURATE CREATININE CLEARANCE IN PREDICTING GLOMERULAR FILTRATION RATE. ESTIMATED GFR IS NOT APPLICABLE FOR DIALYSIS PATIENTS. Draw sodium level 4 hours after hypertonic saline injection1:1 MIXING STUDY, [id number] 12:53:00* Test Item Value Reference Range Comments PROTIME (BEAKER) (test qhna=232) 15.4 seconds 11.7-14.7 PARTIAL THROMBOPLASTIN TIME (BEAKER) (test kwpc=897) 32.6 seconds 22.5-36.0 PT 1/1 MIX (BEAKER) (test zvec=2452) 14.2 SECS 11.7-14.7 PTT / MIX (BEAKER) (test hxaq=8956) 31.4 SECS 22.5-36.0 [id number] 12:46:00* Test Item Value Reference Range Comments SODIUM (BEAKER) (test rccv=323) 157 meq/L 136-145 Draw sodium level 4 hours after hypertonic saline injectionHOMOCYSTEINE 2017-12-03 11:48:00* Test Item Value Reference Range Comments HOMOCYSTEINE (BEAKER) (test dmad=844) 8.1 umol/L 5.1-15.4 OSMOLALITY, [id number] 07:17:00* Test Item Value Reference Range Comments OSMOLALITY, SERUM (BEAKER) (test vnwj=986) 335 mOsm/kg 275-295 BASIC METABOLIC [id number] 05:20:00* Test Item Value Reference Range Comments SODIUM (BEAKER) (test pwds=838) 157 meq/L 136-145 POTASSIUM (BEAKER) (test qbnu=423) 3.6 meq/L 3.5-5.1 CHLORIDE (BEAKER) (test wfvt=331) 123 meq/L 98-107 CO2 (BEAKER) (test toub=019) 25 meq/L 22-29 BLOOD UREA NITROGEN (BEAKER) (test spqu=048) 26 mg/dL 7-21 CREATININE (BEAKER) (test bsiy=537) 0.84 mg/dL 0.57-1.25 GLUCOSE RANDOM (BEAKER) (test blhe=555) 116 mg/dL 70-105 CALCIUM (BEAKER) (test wsow=630) 9.0 mg/dL 8.4-10.2 EGFR (BEAKER) (test rrem=6432) 100 mL/min/1.73 sq m ESTIMATED GFR IS NOT ACCURATE CREATININE CLEARANCE IN PREDICTING GLOMERULAR FILTRATION RATE. ESTIMATED GFR IS NOT APPLICABLE FOR DIALYSIS PATIENTS. CBC W/PLT COUNT & AUTO [id number] 05:02:00* Test Item Value Reference Range Comments WHITE BLOOD CELL COUNT (BEAKER) (test tyyy=331) 10.9 K/ L 3.5-10.5 RED BLOOD CELL COUNT (BEAKER) (test burb=712) 3.22 M/ L 4.63-6.08 HEMOGLOBIN (BEAKER) (test uoaj=334) 9.8 GM/DL 13.7-17.5 HEMATOCRIT (BEAKER) (test tnbc=536) 32.7 % 40.1-51.0 MEAN CORPUSCULAR VOLUME (BEAKER) (test swli=695) 101.6 fL 79.0-92.2 MEAN CORPUSCULAR HEMOGLOBIN (BEAKER) (test hqyk=859) 30.4 pg 25.7-32.2 MEAN CORPUSCULAR HEMOGLOBIN CONC (BEAKER) (test pavw=261) 30.0 GM/DL 32.3-36.5 RED CELL DISTRIBUTION WIDTH (BEAKER) (test gxns=520) 14.0 % 11.6-14.4 PLATELET COUNT (BEAKER) (test vfct=249) 183 K/CU MM 150-450 MEAN PLATELET VOLUME (BEAKER) (test inrm=691) 11.4 fL 9.4-12.4 NUCLEATED RED BLOOD CELLS (BEAKER) (test pvug=444) 1 /100 WBC 0-0 NEUTROPHILS RELATIVE PERCENT (BEAKER) (test qlxv=661) 74 % LYMPHOCYTES RELATIVE PERCENT (BEAKER) (test dslt=706) 15 % MONOCYTES RELATIVE PERCENT (BEAKER) (test lbbt=494) 9 % EOSINOPHILS RELATIVE PERCENT (BEAKER) (test safd=001) 1 % BASOPHILS RELATIVE PERCENT (BEAKER) (test imfl=810) 0 % NEUTROPHILS ABSOLUTE COUNT (BEAKER) (test ctsi=613) 8.01 K/ L 1.78-5.38 LYMPHOCYTES ABSOLUTE COUNT (BEAKER) (test tmfn=443) 1.66 K/ L 1.32-3.57 MONOCYTES ABSOLUTE COUNT (BEAKER) (test nllm=159) 1.01 K/ L 0.30-0.82 EOSINOPHILS ABSOLUTE COUNT (BEAKER) (test cxnm=304) 0.11 K/ L 0.04-0.54 BASOPHILS ABSOLUTE COUNT (BEAKER) (test zjvs=098) 0.04 K/ L 0.01-0.08 IMMATURE GRANULOCYTES-RELATIVE PERCENT (BEAKER) (test ekzt=6123) 1 % 0-1 OSMOLALITY, [id number] 21:48:00* Test Item Value Reference Range Comments OSMOLALITY, SERUM (BEAKER) (test zvhw=503) 326 mOsm/kg 275-295 BASIC METABOLIC [id number] 21:38:00* Test Item Value Reference Range Comments SODIUM (BEAKER) (test qcha=590) 156 meq/L 136-145 POTASSIUM (BEAKER) (test uptq=254) 3.9 meq/L 3.5-5.1 Specimen slightly hemolyzed CHLORIDE (BEAKER) (test qyoc=835) 121 meq/L 98-107 CO2 (BEAKER) (test srjr=997) 21 meq/L 22-29 BLOOD UREA NITROGEN (BEAKER) (test qjtk=253) 23 mg/dL 7-21 CREATININE (BEAKER) (test behw=163) 0.82 mg/dL 0.57-1.25 Specimen slightly hemolyzed GLUCOSE RANDOM (BEAKER) (test tysm=293) 126 mg/dL 70-105 CALCIUM (BEAKER) (test htng=646) 8.6 mg/dL 8.4-10.2 EGFR (BEAKER) (test vwpt=7946) 103 mL/min/1.73 sq m ESTIMATED GFR IS NOT ACCURATE CREATININE CLEARANCE IN PREDICTING GLOMERULAR FILTRATION RATE. ESTIMATED GFR IS NOT APPLICABLE FOR DIALYSIS PATIENTS. OSMOLALITY, [id number] 16:57:00* Test Item Value Reference Range Comments OSMOLALITY, SERUM (BEAKER) (test jggz=126) 324 mOsm/kg 275-295 [id number] 15:42:00* Test Item Value Reference Range Comments SODIUM (BEAKER) (test bhhk=241) 159 meq/L 136-145 OSMOLALITY, [id number] 14:23:00* Test Item Value Reference Range Comments OSMOLALITY, SERUM (BEAKER) (test vqzb=330) 325 mOsm/kg 275-295 BASIC METABOLIC [id number] 14:17:00* Test Item Value Reference Range Comments SODIUM (BEAKER) (test mtgs=458) 154 meq/L 136-145 POTASSIUM (BEAKER) (test fgzk=586) 3.4 meq/L 3.5-5.1 CHLORIDE (BEAKER) (test tmry=637) 119 meq/L 98-107 CO2 (BEAKER) (test pgjs=153) 27 meq/L 22-29 BLOOD UREA NITROGEN (BEAKER) (test dout=928) 21 mg/dL 7-21 CREATININE (BEAKER) (test ixdf=193) 0.83 mg/dL 0.57-1.25 GLUCOSE RANDOM (BEAKER) (test jotw=354) 115 mg/dL 70-105 CALCIUM (BEAKER) (test ddur=098) 8.7 mg/dL 8.4-10.2 EGFR (BEAKER) (test zzll=5430) 101 mL/min/1.73 sq m ESTIMATED GFR IS NOT ACCURATE CREATININE CLEARANCE IN PREDICTING GLOMERULAR FILTRATION RATE. ESTIMATED GFR IS NOT APPLICABLE FOR DIALYSIS PATIENTS. BLOOD GAS, [id number] 06:21:00* Test Item Value Reference Range Comments PH ARTERIAL (BEAKER) (test tbih=527) 7.48 7.35-7.45 PCO2 ARTERIAL (BEAKER) (test ptne=235) 33 mmHg 35-45 PO2 ARTERIAL (BEAKER) (test fvgx=726) 206 mmHg 80-90 O2 SATURATION ARTERIAL (BEAKER) (test yvtj=643) 99.5 % 96.0-97.0 HCO3 ARTERIAL (BEAKER) (test tkrd=620) 24 mmol/L 21-29 BASE EXCESS ARTERIAL (BEAKER) (test iguj=387) 0.8 mmol/L -2.0-3.0 PATIENT TEMPERATURE (BEAKER) (test mvii=9443) 37.2 C FIO2 (BEAKER) (test kgpm=9894) 50.0 % BASIC METABOLIC [id number] 05:28:00* Test Item Value Reference Range Comments SODIUM (BEAKER) (test fpof=621) 143 meq/L 136-145 POTASSIUM (BEAKER) (test mjhv=436) 3.6 meq/L 3.5-5.1 CHLORIDE (BEAKER) (test djhn=402) 119 meq/L 98-107 CO2 (BEAKER) (test oudr=790) 21 meq/L 22-29 BLOOD UREA NITROGEN (BEAKER) (test cxhx=147) 21 mg/dL 7-21 CREATININE (BEAKER) (test upxt=659) 0.77 mg/dL 0.57-1.25 GLUCOSE RANDOM (BEAKER) (test mvee=579) 168 mg/dL 70-105 CALCIUM (BEAKER) (test rnfm=102) 8.9 mg/dL 8.4-10.2 EGFR (BEAKER) (test cvut=8399) 110 mL/min/1.73 sq m ESTIMATED GFR IS NOT ACCURATE CREATININE CLEARANCE IN PREDICTING GLOMERULAR FILTRATION RATE. ESTIMATED GFR IS NOT APPLICABLE FOR DIALYSIS PATIENTS. CBC W/PLT COUNT & AUTO [id number] 05:09:00* Test Item Value Reference Range Comments WHITE BLOOD CELL COUNT (BEAKER) (test dufs=561) 13.8 K/ L 3.5-10.5 RED BLOOD CELL COUNT (BEAKER) (test trpa=937) 3.30 M/ L 4.63-6.08 HEMOGLOBIN (BEAKER) (test lfjs=990) 10.2 GM/DL 13.7-17.5 HEMATOCRIT (BEAKER) (test uxit=769) 32.6 % 40.1-51.0 MEAN CORPUSCULAR VOLUME (BEAKER) (test utvw=571) 98.8 fL 79.0-92.2 MEAN CORPUSCULAR HEMOGLOBIN (BEAKER) (test ylmh=157) 30.9 pg 25.7-32.2 MEAN CORPUSCULAR HEMOGLOBIN CONC (BEAKER) (test lnpi=925) 31.3 GM/DL 32.3-36.5 RED CELL DISTRIBUTION WIDTH (BEAKER) (test frfy=967) 13.9 % 11.6-14.4 PLATELET COUNT (BEAKER) (test ekvv=083) 181 K/CU MM 150-450 MEAN PLATELET VOLUME (BEAKER) (test hzqf=144) 11.2 fL 9.4-12.4 NUCLEATED RED BLOOD CELLS (BEAKER) (test rgsg=554) 0 /100 WBC 0-0 NEUTROPHILS RELATIVE PERCENT (BEAKER) (test lyji=003) 82 % LYMPHOCYTES RELATIVE PERCENT (BEAKER) (test gqwu=190) 8 % MONOCYTES RELATIVE PERCENT (BEAKER) (test gjir=880) 9 % EOSINOPHILS RELATIVE PERCENT (BEAKER) (test bsvd=990) 0 % BASOPHILS RELATIVE PERCENT (BEAKER) (test tegu=548) 0 % NEUTROPHILS ABSOLUTE COUNT (BEAKER) (test xsvd=543) 11.33 K/ L 1.78-5.38 LYMPHOCYTES ABSOLUTE COUNT (BEAKER) (test nzsz=505) 1.09 K/ L 1.32-3.57 MONOCYTES ABSOLUTE COUNT (BEAKER) (test kdfe=456) 1.25 K/ L 0.30-0.82 EOSINOPHILS ABSOLUTE COUNT (BEAKER) (test hvkl=648) 0.01 K/ L 0.04-0.54 BASOPHILS ABSOLUTE COUNT (BEAKER) (test tjfq=529) 0.03 K/ L 0.01-0.08 IMMATURE GRANULOCYTES-RELATIVE PERCENT (BEAKER) (test wnkm=3071) 1 % 0-1 RAD, CHEST, 1 VIEW, NON [id number] 03:38:00Reason for exam:->ETT placementShould this be performed at the bedside?->YesFINAL REPORT RAD, CHEST, 1 VIEW, NON DEPT INDICATION: ETT placement COMPARISON: Prior day's exam FINDINGS: Portable frontal view of the chest. IMPRESSION: Support Lines: Stable. Lungs and pleura: Underinflated lungs. No focal consolidation. Trace left effusion. No pneumothorax.Heart and mediastinum: Stable contours. Stable triple lead pacer and pulse generator.Additional findings: None. Signed: JR Rios [facility] Verified Date/Time: 0 12/02/2017 03:38:54 Reading Location: [facility] Radiology Reading Room Electronical ly signed by: HILTON RIOS on 12/02/2017 03:38 AM OSMOLALITY, SERUM 2017-12-02 02:53:00* Test Item Value Reference Range Comments OSMOLALITY, SERUM (BEAKER) (test qbfy=449) 328 mOsm/kg 275-295 BASIC METABOLIC [id number] 01:11:00* Test Item Value Reference Range Comments SODIUM (BEAKER) (test metw=238) 153 meq/L 136-145 POTASSIUM (BEAKER) (test bhsv=278) 3.6 meq/L 3.5-5.1 CHLORIDE (BEAKER) (test hghl=344) 124 meq/L 98-107 CO2 (BEAKER) (test knha=735) 23 meq/L 22-29 BLOOD UREA NITROGEN (BEAKER) (test cihe=331) 20 mg/dL 7-21 CREATININE (BEAKER) (test tpib=865) 0.76 mg/dL 0.57-1.25 GLUCOSE RANDOM (BEAKER) (test obhp=732) 164 mg/dL 70-105 CALCIUM (BEAKER) (test nsyw=004) 8.4 mg/dL 8.4-10.2 EGFR (BEAKER) (test plme=6860) 112 mL/min/1.73 sq m ESTIMATED GFR IS NOT ACCURATE CREATININE CLEARANCE IN PREDICTING GLOMERULAR FILTRATION RATE. ESTIMATED GFR IS NOT APPLICABLE FOR DIALYSIS PATIENTS. BASIC METABOLIC [id number] 18:39:00* Test Item Value Reference Range Comments SODIUM (BEAKER) (test zmuo=988) 141 meq/L 136-145 POTASSIUM (BEAKER) (test axyu=192) 3.4 meq/L 3.5-5.1 CHLORIDE (BEAKER) (test dwen=546) 116 meq/L 98-107 CO2 (BEAKER) (test bkas=261) 25 meq/L 22-29 BLOOD UREA NITROGEN (BEAKER) (test vxyp=904) 16 mg/dL 7-21 CREATININE (BEAKER) (test ivsp=784) 0.76 mg/dL 0.57-1.25 GLUCOSE RANDOM (BEAKER) (test gopm=996) 165 mg/dL 70-105 CALCIUM (BEAKER) (test yvad=952) 8.5 mg/dL 8.4-10.2 EGFR (BEAKER) (test lnhn=7460) 112 mL/min/1.73 sq m ESTIMATED GFR IS NOT ACCURATE CREATININE CLEARANCE IN PREDICTING GLOMERULAR FILTRATION RATE. ESTIMATED GFR IS NOT APPLICABLE FOR DIALYSIS PATIENTS. OSMOLALITY, [id number] 18:36:00* Test Item Value Reference Range Comments OSMOLALITY, SERUM (BEAKER) (test ughy=081) 322 mOsm/kg 275-295 OSMOLALITY, [id number] 10:08:00* Test Item Value Reference Range Comments OSMOLALITY, SERUM (BEAKER) (test vpyu=902) 316 mOsm/kg 275-295 SPUTUM CULTURE + GRAM [id number] 09:08:00* Test Item Value Reference Range Comments CULTURE (BEAKER) (test osdu=8169) No growth GRAM STAIN RESULT (BEAKER) (test cqxw=9886) 4+ White blood cells seen GRAM STAIN RESULT (BEAKER) (test yxql=78067) 0-5 epithelial cells GRAM STAIN RESULT (BEAKER) (test szaa=05428) No organisms seen SURGICALLY OBTAINED CULTURE + GRAM [id number] 09:01:00* Test Item Value Reference Range Comments CULTURE (BEAKER) (test cfxm=8592) No growth GRAM STAIN RESULT (BEAKER) (test imty=9674) <1+ WBCs GRAM STAIN RESULT (BEAKER) (test mkwi=22226) No organisms seen BASIC METABOLIC [id number] 08:53:00* Test Item Value Reference Range Comments SODIUM (BEAKER) (test dcuv=051) 149 meq/L 136-145 POTASSIUM (BEAKER) (test rfqv=624) 3.6 meq/L 3.5-5.1 CHLORIDE (BEAKER) (test qowd=401) 118 meq/L 98-107 CO2 (BEAKER) (test sdyw=739) 25 meq/L 22-29 BLOOD UREA NITROGEN (BEAKER) (test jlfi=958) 16 mg/dL 7-21 CREATININE (BEAKER) (test spul=023) 0.77 mg/dL 0.57-1.25 GLUCOSE RANDOM (BEAKER) (test ptjg=476) 167 mg/dL 70-105 CALCIUM (BEAKER) (test kroj=537) 8.4 mg/dL 8.4-10.2 EGFR (BEAKER) (test kavc=8956) 110 mL/min/1.73 sq m ESTIMATED GFR IS NOT ACCURATE CREATININE CLEARANCE IN PREDICTING GLOMERULAR FILTRATION RATE. ESTIMATED GFR IS NOT APPLICABLE FOR DIALYSIS PATIENTS. CBC W/PLT COUNT & AUTO [id number] 06:44:00* Test Item Value Reference Range Comments WHITE BLOOD CELL COUNT (BEAKER) (test lqzo=502) 14.8 K/ L 3.5-10.5 RED BLOOD CELL COUNT (BEAKER) (test nasf=364) 3.57 M/ L 4.63-6.08 HEMOGLOBIN (BEAKER) (test euog=161) 10.9 GM/DL 13.7-17.5 HEMATOCRIT (BEAKER) (test kcdy=161) 34.7 % 40.1-51.0 MEAN CORPUSCULAR VOLUME (BEAKER) (test qsrm=080) 97.2 fL 79.0-92.2 MEAN CORPUSCULAR HEMOGLOBIN (BEAKER) (test zibn=450) 30.5 pg 25.7-32.2 MEAN CORPUSCULAR HEMOGLOBIN CONC (BEAKER) (test hrpr=041) 31.4 GM/DL 32.3-36.5 RED CELL DISTRIBUTION WIDTH (BEAKER) (test kdgc=803) 13.6 % 11.6-14.4 PLATELET COUNT (BEAKER) (test wcnu=940) 186 K/CU MM 150-450 MEAN PLATELET VOLUME (BEAKER) (test sgec=977) 10.8 fL 9.4-12.4 NUCLEATED RED BLOOD CELLS (BEAKER) (test khpy=907) 0 /100 WBC 0-0 NEUTROPHILS RELATIVE PERCENT (BEAKER) (test fqkr=031) 84 % LYMPHOCYTES RELATIVE PERCENT (BEAKER) (test vmil=790) 6 % MONOCYTES RELATIVE PERCENT (BEAKER) (test esyu=021) 9 % EOSINOPHILS RELATIVE PERCENT (BEAKER) (test vegh=421) 0 % BASOPHILS RELATIVE PERCENT (BEAKER) (test pvfh=635) 0 % NEUTROPHILS ABSOLUTE COUNT (BEAKER) (test sunw=008) 12.42 K/ L 1.78-5.38 LYMPHOCYTES ABSOLUTE COUNT (BEAKER) (test qgqy=066) 0.92 K/ L 1.32-3.57 MONOCYTES ABSOLUTE COUNT (BEAKER) (test qjku=814) 1.38 K/ L 0.30-0.82 EOSINOPHILS ABSOLUTE COUNT (BEAKER) (test fgon=397) 0.01 K/ L 0.04-0.54 BASOPHILS ABSOLUTE COUNT (BEAKER) (test boef=044) 0.02 K/ L 0.01-0.08 IMMATURE GRANULOCYTES-RELATIVE PERCENT (BEAKER) (test smyt=4497) 0 % 0-1 BASIC METABOLIC [id number] 06:24:00* Test Item Value Reference Range Comments SODIUM (BEAKER) (test zkui=676) 146 meq/L 136-145 POTASSIUM (BEAKER) (test lpua=779) 3.6 meq/L 3.5-5.1 CHLORIDE (BEAKER) (test xjsl=188) 116 meq/L 98-107 CO2 (BEAKER) (test azxq=334) 21 meq/L 22-29 BLOOD UREA NITROGEN (BEAKER) (test zrjb=517) 15 mg/dL 7-21 CREATININE (BEAKER) (test ksmy=736) 0.77 mg/dL 0.57-1.25 GLUCOSE RANDOM (BEAKER) (test fhek=555) 175 mg/dL 70-105 CALCIUM (BEAKER) (test vvnv=797) 8.6 mg/dL 8.4-10.2 EGFR (BEAKER) (test mjxv=2017) 110 mL/min/1.73 sq m ESTIMATED GFR IS NOT ACCURATE CREATININE CLEARANCE IN PREDICTING GLOMERULAR FILTRATION RATE. ESTIMATED GFR IS NOT APPLICABLE FOR DIALYSIS PATIENTS. OSMOLALITY, [id number] 05:33:00* Test Item Value Reference Range Comments OSMOLALITY, SERUM (BEAKER) (test jago=201) 308 mOsm/kg 275-295 BLOOD GAS, [id number] 05:23:00* Test Item Value Reference Range Comments PH ARTERIAL (BEAKER) (test jbhp=319) 7.49 7.35-7.45 PCO2 ARTERIAL (BEAKER) (test trhd=955) 34 mmHg 35-45 PO2 ARTERIAL (BEAKER) (test pfme=314) 224 mmHg 80-90 O2 SATURATION ARTERIAL (BEAKER) (test mwxf=673) 99.6 % 96.0-97.0 HCO3 ARTERIAL (BEAKER) (test wkye=013) 26 mmol/L 21-29 BASE EXCESS ARTERIAL (BEAKER) (test epur=031) 2.6 mmol/L -2.0-3.0 PATIENT TEMPERATURE (BEAKER) (test yfsl=9891) 37.3 C FIO2 (BEAKER) (test feut=4302) 60.0 % RAD, CHEST, 1 VIEW, NON [id number] 05:15:00Reason for exam:->ETT placementShould this be performed at the bedside?->YesFINAL REPORT RAD, CHEST, 1 VIEW, NON DEPT INDICATION: ETT placement COMPARISON: Prior day's exam FINDINGS: Portable frontal view of the chest. IMPRESSION: Support Lines: Endotracheal tube terminates 3.5 cm above the neal, otherwise unchanged support apparatus. Lungs and pleura: Unchanged airspace and pleural opacities. No pneumothorax.Heart and mediastinum: Stable contours.Additional findings: None Signed: Wins[facility] Verified Date/Time: 12/01/2017 05:15:15 Reading Location: [facility] C013T Transitional Reading Room C METABOLIC [id number] 01:22:00* Test Item Value Reference Range Comments SODIUM (BEAKER) (test xvki=122) 146 meq/L 136-145 POTASSIUM (BEAKER) (test rjus=316) 3.5 meq/L 3.5-5.1 CHLORIDE (BEAKER) (test mtkb=260) 116 meq/L 98-107 CO2 (BEAKER) (test dlku=297) 24 meq/L 22-29 BLOOD UREA NITROGEN (BEAKER) (test avxx=236) 12 mg/dL 7-21 CREATININE (BEAKER) (test vphh=714) 0.76 mg/dL 0.57-1.25 GLUCOSE RANDOM (BEAKER) (test ddtv=569) 156 mg/dL 70-105 CALCIUM (BEAKER) (test xztk=585) 8.5 mg/dL 8.4-10.2 EGFR (BEAKER) (test rpwj=8058) 112 mL/min/1.73 sq m ESTIMATED GFR IS NOT ACCURATE CREATININE CLEARANCE IN PREDICTING GLOMERULAR FILTRATION RATE. ESTIMATED GFR IS NOT APPLICABLE FOR DIALYSIS PATIENTS. POCT-GLUCOSE [id number] 18:20:00* Test Item Value Reference Range Comments POC-GLUCOSE METER (BEAKER) (test jmtt=3070) 145 mg/dL 70-110 TESTED AT [facility] [address] [facility] [address] OSMOLALITY, [id number] 17:56:00* Test Item Value Reference Range Comments OSMOLALITY, SERUM (BEAKER) (test lkxd=303) 307 mOsm/kg 275-295 [id number] 17:31:00* Test Item Value Reference Range Comments POTASSIUM (BEAKER) (test seod=948) 3.9 meq/L 3.5-5.1 Check Serum Potassium level 2 hours after oral potassium replacement completed o r 30 min after intravenous potassium replacement.BASIC METABOLIC [id number] 17:31:00* Test Item Value Reference Range Comments SODIUM (BEAKER) (test agwo=646) 147 meq/L 136-145 POTASSIUM (BEAKER) (test cprm=157) 3.9 meq/L 3.5-5.1 CHLORIDE (BEAKER) (test yuxy=592) 115 meq/L 98-107 CO2 (BEAKER) (test pjhw=736) 24 meq/L 22-29 BLOOD UREA NITROGEN (BEAKER) (test whyz=153) 11 mg/dL 7-21 CREATININE (BEAKER) (test putn=970) 0.78 mg/dL 0.57-1.25 GLUCOSE RANDOM (BEAKER) (test rfzt=576) 155 mg/dL 70-105 CALCIUM (BEAKER) (test rlmw=633) 8.8 mg/dL 8.4-10.2 EGFR (BEAKER) (test brlj=9909) 109 mL/min/1.73 sq m ESTIMATED GFR IS NOT ACCURATE CREATININE CLEARANCE IN PREDICTING GLOMERULAR FILTRATION RATE. ESTIMATED GFR IS NOT APPLICABLE FOR DIALYSIS PATIENTS. Check Serum Potassium level 2 hours after oral potassium replacement completed o r 30 min after intravenous potassium replacement.CBC W/PLT COUNT & AUTO [id number] 12:35:00* Test Item Value Reference Range Comments WHITE BLOOD CELL COUNT (BEAKER) (test uavt=393) 15.4 K/ L 3.5-10.5 RED BLOOD CELL COUNT (BEAKER) (test lhdh=490) 3.97 M/ L 4.63-6.08 HEMOGLOBIN (BEAKER) (test xtco=098) 12.3 GM/DL 13.7-17.5 HEMATOCRIT (BEAKER) (test ovix=532) 36.9 % 40.1-51.0 MEAN CORPUSCULAR VOLUME (BEAKER) (test yehq=819) 92.9 fL 79.0-92.2 MEAN CORPUSCULAR HEMOGLOBIN (BEAKER) (test gwks=407) 31.0 pg 25.7-32.2 MEAN CORPUSCULAR HEMOGLOBIN CONC (BEAKER) (test aunt=949) 33.3 GM/DL 32.3-36.5 RED CELL DISTRIBUTION WIDTH (BEAKER) (test epgk=070) 13.1 % 11.6-14.4 PLATELET COUNT (BEAKER) (test vojh=825) 202 K/CU MM 150-450 MEAN PLATELET VOLUME (BEAKER) (test mwej=723) 10.4 fL 9.4-12.4 NUCLEATED RED BLOOD CELLS (BEAKER) (test axrr=291) 0 /100 WBC 0-0 (CELLAVISION MANUAL DIFF)2017-11-30 12:35:00* Test Item Value Reference Range Comments NEUTROPHILS - REL (CELLAVISION)(BEAKER) (test gmrb=6501) 85 % LYMPHOCYTES - REL (CELLAVISION)(BEAKER) (test aoqd=5675) 7 % MONOCYTES - REL (CELLAVISION)(BEAKER) (test sjgb=2682) 6 % BANDS - REL (CELLAVISION)(BEAKER) (test lhfv=9544) 2 % 0-10 NEUTROPHILS - ABS (CELLAVISION)(BEAKER) (test srfd=4519) 13.09 K/ul 1.78-5.38 LYMPHOCYTES - ABS (CELLAVISION)(BEAKER) (test yfmr=8627) 1.08 K/ul 1.32-3.57 MONOCYTES - ABS (CELLAVISION)(BEAKER) (test snul=0982) 0.92 K/uL 0.30-0.82 BANDS - ABS (CELLAVISION)(BEAKER) (test gzbv=7406) 0.31 K/uL 0.00-0.80 TOTAL COUNTED (BEAKER) (test tbcm=9304) 100 WBC MORPHOLOGY (BEAKER) (test cjfe=010) Normal GIANT PLATELETS (BEAKER) (test hrum=746) Present ANISOCYTOSIS (BEAKER) (test jjsy=318) 1+ few MACROCYTES (BEAKER) (test toih=915) 1+ few POIKILOCYTES (BEAKER) (test wkol=636) 1+ few ARTIFACT (CELLAVISION)(BEAKER) (test wbal=1566) Present PLATELET CONCENTRATION (CELLAVISION)(BEAKER) (test xizl=9446) Adequate Received comment: User comments: Slide comments: POCT-GLUCOSE [id number] 12:05:00* Test Item Value Reference Range Comments POC-GLUCOSE METER (BEAKER) (test jinj=7416) 171 mg/dL 70-110 TESTED AT [facility] [address] [place] [address] OSMOLALITY, [id number] 11:43:00* Test Item Value Reference Range Comments OSMOLALITY, SERUM (BEAKER) (test fode=096) 302 mOsm/kg 275-295 DIGOXIN [id number] 10:38:00* Test Item Value Reference Range Comments DIGOXIN LEVEL (BEAKER) (test ztht=420) < ng/mL 0.8-2.0 BASIC METABOLIC [id number] 09:55:00* Test Item Value Reference Range Comments SODIUM (BEAKER) (test dpwd=207) 144 meq/L 136-145 POTASSIUM (BEAKER) (test twah=081) 3.6 meq/L 3.5-5.1 CHLORIDE (BEAKER) (test nlaj=102) 110 meq/L 98-107 CO2 (BEAKER) (test kopx=382) 25 meq/L 22-29 BLOOD UREA NITROGEN (BEAKER) (test skgb=277) 10 mg/dL 7-21 CREATININE (BEAKER) (test vxtd=565) 0.84 mg/dL 0.57-1.25 GLUCOSE RANDOM (BEAKER) (test uqui=670) 144 mg/dL 70-105 CALCIUM (BEAKER) (test jlbn=155) 8.9 mg/dL 8.4-10.2 EGFR (BEAKER) (test ewsb=4891) 100 mL/min/1.73 sq m ESTIMATED GFR IS NOT ACCURATE CREATININE CLEARANCE IN PREDICTING GLOMERULAR FILTRATION RATE. ESTIMATED GFR IS NOT APPLICABLE FOR DIALYSIS PATIENTS. URINALYSIS W/ REFLEX URINE [id number] 07:34:00* Test Item Value Reference Range Comments COLOR (BEAKER) (test iicm=442) [place]ough CLARITY (BEAKER) (test rkjs=632) Hazy SPECIFIC GRAVITY UA (BEAKER) (test quxg=078) 1.032 1.001-1.035 PH UA (BEAKER) (test yqul=951) 6.0 5.0-8.0 PROTEIN UA (BEAKER) (test gnwu=345) 100 mg/dL Negative GLUCOSE UA (BEAKER) (test kugr=680) Negative Negative KETONES UA (BEAKER) (test rbpn=558) Trace Negative BILIRUBIN UA (BEAKER) (test qfxw=609) Negative Negative BLOOD UA (BEAKER) (test pbnq=610) Large Negative NITRITE UA (BEAKER) (test fxbm=666) Negative Negative LEUKOCYTE ESTERASE UA (BEAKER) (test ugot=707) Trace Negative UROBILINOGEN UA (BEAKER) (test poht=233) 0.2 mg/dL 0.2-1.0 RBC UA (BEAKER) (test ukuk=748) > /HPF WBC UA (BEAKER) (test yolj=302) 13 /HPF MUCUS (BEAKER) (test mdmh=0637) Rare SQUAMOUS EPITHELIAL (BEAKER) (test sgmf=672) < /HPF SOURCE(BEAKER) (test oxhn=2696) BASIC METABOLIC [id number] 05:15:00* Test Item Value Reference Range Comments SODIUM (BEAKER) (test jaxx=571) 142 meq/L 136-145 POTASSIUM (BEAKER) (test jfeb=631) 3.5 meq/L 3.5-5.1 CHLORIDE (BEAKER) (test envn=757) 113 meq/L 98-107 CO2 (BEAKER) (test gkpx=353) 20 meq/L 22-29 BLOOD UREA NITROGEN (BEAKER) (test cmsd=847) 9 mg/dL 7-21 CREATININE (BEAKER) (test sovu=953) 0.78 mg/dL 0.57-1.25 GLUCOSE RANDOM (BEAKER) (test qtch=539) 145 mg/dL 70-105 CALCIUM (BEAKER) (test fero=611) 8.5 mg/dL 8.4-10.2 EGFR (BEAKER) (test agkl=6472) 109 mL/min/1.73 sq m ESTIMATED GFR IS NOT ACCURATE CREATININE CLEARANCE IN PREDICTING GLOMERULAR FILTRATION RATE. ESTIMATED GFR IS NOT APPLICABLE FOR DIALYSIS PATIENTS. BLOOD GAS, [id number] 04:41:00* Test Item Value Reference Range Comments PH ARTERIAL (BEAKER) (test rlfa=472) 7.48 7.35-7.45 PCO2 ARTERIAL (BEAKER) (test kzpi=705) 36 mm Hg 35-45 PO2 ARTERIAL (BEAKER) (test mtop=410) 221 mm Hg 80-90 O2 SATURATION ARTERIAL (BEAKER) (test uldh=124) 99.5 % 96.0-97.0 HCO3 ARTERIAL (BEAKER) (test cqmr=932) 26 mmol/L 21-29 BASE EXCESS ARTERIAL (BEAKER) (test fuwb=590) 2.9 mmol/L -2.0-3.0 PATIENT TEMPERATURE (BEAKER) (test kbjp=8032) 37.7 FIO2 (BEAKER) (test uoym=0626) 60 RAD, CHEST, 1 VIEW, NON [id number] 04:29:00Reason for exam:->ETT placementShould this be performed at the bedside?->YesFINAL REPORT RAD, CHEST, 1 VIEW, NON DEPT INDICATION: ETT placement COMPARISON: Prior day's exam FINDINGS: Portable frontal view of the chest. IMPRESSION: Support Lines: Stable. Lungs and pleura: No focal consolidation. Questionable small left effusion. No pneumothorax.Heart and mediastinum: Stable contours. Stable pacer apparatus.Additional findings: None. Signed: JR Rios Robert MDReport Verified Date/Time: 11/30/2017 04:29:42 Reading Location: [address] Reading Room LALITY, [id number] 02:31:00* Test Item Value Reference Range Comments OSMOLALITY, SERUM (BEAKER) (test wkzy=674) 302 mOsm/kg 275-295 BASIC METABOLIC [id number] 01:31:00* Test Item Value Reference Range Comments SODIUM (BEAKER) (test zexy=760) 142 meq/L 136-145 POTASSIUM (BEAKER) (test tskn=383) 3.8 meq/L 3.5-5.1 CHLORIDE (BEAKER) (test itri=527) 113 meq/L 98-107 CO2 (BEAKER) (test esdm=388) 20 meq/L 22-29 BLOOD UREA NITROGEN (BEAKER) (test jdgc=938) 10 mg/dL 7-21 CREATININE (BEAKER) (test okbx=659) 0.85 mg/dL 0.57-1.25 GLUCOSE RANDOM (BEAKER) (test ggys=044) 144 mg/dL 70-105 CALCIUM (BEAKER) (test yhjv=020) 8.4 mg/dL 8.4-10.2 EGFR (BEAKER) (test jwec=3775) 98 mL/min/1.73 sq m ESTIMATED GFR IS NOT ACCURATE CREATININE CLEARANCE IN PREDICTING GLOMERULAR FILTRATION RATE. ESTIMATED GFR IS NOT APPLICABLE FOR DIALYSIS PATIENTS. RAD, CHEST, 1 VIEW, NON [id number] 16:40:00Reason for exam:->central line placement Should this be performed at the bedside?->YesFINAL REPORT CLINICAL HISTORY: central line placement TECHNIQUE: 1 view of the chest. COMPARISON: 11/29/2017 IMPRESSION: There is a new right central line near the cavoatrial junction. There is a new feeding tube below the diaphragm. The ETT projects approximately 3 cm above the neal. Left lung base consolidation and a small left pleural effusion appear slightly decreased. Right lower lung atelectasis is again seen. The cardiomediastinal silhouette is magnified by technique with a pacemaker. Signed: Isaias Tovar MDReport Verified Date/Time: 11/29/2017 16:40:13 Reading Location: [facility] [id number] Consult Reading Room C METABOLIC [id number] 16:25:00* Test Item Value Reference Range Comments SODIUM (BEAKER) (test mcgv=573) 135 meq/L 136-145 POTASSIUM (BEAKER) (test kuwm=456) 3.9 meq/L 3.5-5.1 CHLORIDE (BEAKER) (test owsz=276) 105 meq/L 98-107 CO2 (BEAKER) (test mozh=897) 22 meq/L 22-29 BLOOD UREA NITROGEN (BEAKER) (test sedr=454) 10 mg/dL 7-21 CREATININE (BEAKER) (test xbqr=906) 0.94 mg/dL 0.57-1.25 GLUCOSE RANDOM (BEAKER) (test qcbz=892) 158 mg/dL 70-105 CALCIUM (BEAKER) (test smnt=840) 8.7 mg/dL 8.4-10.2 EGFR (BEAKER) (test fids=4028) 88 mL/min/1.73 sq m ESTIMATED GFR IS NOT ACCURATE CREATININE CLEARANCE IN PREDICTING GLOMERULAR FILTRATION RATE. ESTIMATED GFR IS NOT APPLICABLE FOR DIALYSIS PATIENTS. OSMOLALITY, [id number] 16:20:00* Test Item Value Reference Range Comments OSMOLALITY, SERUM (BEAKER) (test woyb=794) 292 mOsm/kg 275-295 URINALYSIS W/ REFLEX URINE [id number] 16:07:00* Test Item Value Reference Range Comments COLOR (BEAKER) (test awzl=318) Hough CLARITY (BEAKER) (test gxfi=460) Hazy SPECIFIC GRAVITY UA (BEAKER) (test eqtl=709) 1.021 1.001-1.035 PH UA (BEAKER) (test ooxb=693) 5.0 5.0-8.0 PROTEIN UA (BEAKER) (test yoeo=772) Negative Negative GLUCOSE UA (BEAKER) (test lfbv=689) Negative Negative KETONES UA (BEAKER) (test etpe=354) Negative Negative BILIRUBIN UA (BEAKER) (test xayy=085) Negative Negative BLOOD UA (BEAKER) (test iobt=060) Large Negative NITRITE UA (BEAKER) (test zigb=091) Negative Negative LEUKOCYTE ESTERASE UA (BEAKER) (test eoij=341) Negative Negative UROBILINOGEN UA (BEAKER) (test hzsq=699) 0.2 mg/dL 0.2-1.0 RBC UA (BEAKER) (test smcz=735) > /HPF WBC UA (BEAKER) (test jjic=002) 0 /HPF MUCUS (BEAKER) (test xjwz=9152) Moderate SOURCE(BEAKER) (test rxrv=4463) TROPONIN [id number] 15:31:00* Test Item Value Reference Range Comments TROPONIN I (BEAKER) (test tngs=244) 0.46 ng/mL 0.00-0.03 Troponin I (TnI) levels must be interpreted in the context of the presenting sym ptoms and the clinical findings. Elevated TnI levels indicate myocardial damage, but are not specific for ischemic heart disease. Elevated TnI levels are seen in patients with other cardiac conditions (including myocarditis and congestive h eart failure), and slight TnI elevations occur in patients with other conditions , including sepsis, renal failure, acidosis, acute neurological disease, and per sistent tachyarrhythmia.OSMOLALITY, [id number] 14:43:00* Test Item Value Reference Range Comments OSMOLALITY, SERUM (BEAKER) (test qero=618) 289 mOsm/kg 275-295 RAD, ABDOMEN/KUB, 1 VIEW [id number] 13:01:00Reason for exam:->core packFINAL REPORT CLINICAL HISTORY: core pack TECHNIQUE: Supine abdomen IMPRESSION: The tip of the feeding tube is in the distal stomach. There is a nasogastric tube in the fundus. The partially visualized bowel gas pattern is nonspecific. Signed: Isaias Tovar MDReport Verified Date/Time: 11/29/2017 13:01:44 Reading Location: [facility] Radiology Reading Room Electronic ally signed by: ISAIAS TOVAR M.D. on 11/29/2017 01:01 PM BASIC METABOLIC [id number] 12:02:00* Test Item Value Reference Range Comments SODIUM (BEAKER) (test qewu=409) 139 meq/L 136-145 POTASSIUM (BEAKER) (test hcgf=107) 3.9 meq/L 3.5-5.1 CHLORIDE (BEAKER) (test dmfd=214) 107 meq/L 98-107 CO2 (BEAKER) (test ycss=767) 23 meq/L 22-29 BLOOD UREA NITROGEN (BEAKER) (test txdm=075) 10 mg/dL 7-21 CREATININE (BEAKER) (test phtl=777) 0.86 mg/dL 0.57-1.25 GLUCOSE RANDOM (BEAKER) (test mdyh=096) 136 mg/dL 70-105 CALCIUM (BEAKER) (test srgj=292) 8.7 mg/dL 8.4-10.2 EGFR (BEAKER) (test jejd=4474) 97 mL/min/1.73 sq m ESTIMATED GFR IS NOT ACCURATE CREATININE CLEARANCE IN PREDICTING GLOMERULAR FILTRATION RATE. ESTIMATED GFR IS NOT APPLICABLE FOR DIALYSIS PATIENTS. NV, ANGIOGRAM, [id number] 11:29:00Reason for exam:->CEREBROVASCULAR ACCIDENTFINAL REPORT DATE OF PROCEDURE: 11/08/2017 SURGEON: Elfego Ortiz MD CARDIAC/VASCULAR SONOGRAPHER: Stephen Delvalle MD PREOPERATIVE DIAGNOSIS: Acute right MCA stroke, right ICA terminus and M1 occlusion POSTOPERATIVE DIAGNOSIS: Acute Acute right MCA stroke, right ICA terminus and M1 occlusion PROCEDURE PERFORMED: 1. Diagnostic Angiogram2. Right ICA and MCA mechanical thrombectomy with proximal balloon occlusion3. Intra-arterial verapamil infusion (10mg over 10min) ANESTHESIA: MAC COMPLICATIONS: None ESTIMATED BLOOD LOSS: Less than 20ml VESSELS STUDIED:*Right common carotid artery x 1*Right internal carotid artery x >10*Right middle cerebral microangiogram x1*Right common femoral artery x1 MATERIALS EMPLOYED:1. 8 [place] short sheath 2. 5 [place] 125cm diagnostic catheter3. Bentson guidewire4. Terumo 0.035 LT glidewire5. Flowgate 8f Balloon Guide Catheter6. Marksman microcatheter7. Solitaire 6mm x 40mm 8. 8 [place] Angioseal device I NDICATIONS:Patient is a 42-year-old male with a past [...] was transferred emergently to the endovascular suite f or a mechanical thrombectomy. While the patient was being prepared for the proce dure by the team, the indications for the procedure as well as the risks, benefi ts and alternatives to the procedure were again extensively discussed with the f jose robertodwayne at the bedside and via telephone in the family conference. The risks discu ssed included but were not limited to stroke of bilateral hemispheres due to the presumed aortic arch - innominate artery clot, intracranial hemorrhage, injury to the cervical femoral or aortic vessels, contrast reaction, kidney to toxicity , groin hematoma, weakness paralysis and even . They demonstrated understan ding of the risk benefit profile and agreed to proceed. PROCEDURE:After appropri ate consent was obtained, the patient was brought to the angiographic suite and cardiopulmonary monitoring was placed. The anesthesia team performed intubation. A timeout was performed. Both groins were prepped and draped in the usual steri le fashion. After administration of 10 mL of 2% lidocaine, a micropuncture needl e was used to perform a single wall puncture of the right common femoral artery, a micropuncture sheath was inserted, and an angled DSA angiogram was performed through the sheath. Once good location of the puncture site was confirmed, a 8 F rench short sheath was inserted over a Bentson wire and was maintained on hepari nized saline flush throughout the remainder of the procedure. Using coaxial tech nique, a preflushed 5 [place] 125cm diagnostic glide catheter on constant heparin ized saline flush was placed through a pre-flushed and pre-prepped 8 [place] Flow gate balloon Guide catheter. The two catheters were inserted together and advanc ed over the Glidewire into the descending aorta, the Glidewire was removed, the catheter and Flowgate were back bled, flushed in usual fashion and they were areli ntained on heparinized flush throughout duration of the case. Using coaxial tech nique, the catheter was advanced into the proximal aortic arch and with the aid of digital fluoroscopy, and careful guidewire manipulation, the right common car otid was access from the descending aorta with the glidewire selecting the CCA. After selecting the CCA, the right internal carotid arteries was selectively cat heterized. Over the diagnostic catheter, the Flowgate balloon guide catheter was advanced into the proximal internal carotid artery. The diagnostic catheter was removed, and the balloon guide again back flushed, antegrade flushed and mainta ined on heparinized flush throughout remainder the procedure. We then inserted a preflushed New Futuroman microcatheter over a preshaped Synchro standard wire under roadmap guidance into the intracranial circulation. We then advanced it past the large vessel occlusion in the ICA terminus and into the M2 branches. The perfor med microangiograms through the microcatheter to confirm that the tip of the zenaida rocatheter was distal to the large vessel clot. Once this was confirmed, we then inserted and deployed the 6 x 40 Solitaire device across the clot. We then wait ed five minutes for clot integration. At five minutes, the Flowgate balloon was inflated until it was occlusive in the internal carotid, the communications assistant pulled iyer ction through the lumen of the Flowgate as we retracted the Solitaire device int o the Flowgate catheter to the hub. We then disconnected the hub removed the dev ice back bled the Flowgate catheter while the balloon was being deflated, and re -connected the Flowgate to a clean Y-valve / heparinized flush system. The ballo on was confirmed to be deflated with live fluoroscopy, and a diagnostic angiogra m of the intracranial circulation was performed. There was a large clot seen in the Solitaire device. The post-thrombectomy angiogram showed vasospasm of the ce rvical ICA as well as the M1. Intra-arterial verapamil 10mg was slowly infused o angelina 10 minutes into the ICA. A subsequent angiogram showed considerable resoluti on of the vasospasm and no evidence of new clot formation in the ICA or MCA. T he femoral sheath was removed and hemostasis achieved with an 8 [place] Angioseal . The patient tolerated the procedure well. He was was transferred to the neurol ogical intensive care unit to be monitored as per protocol. FINDINGS:RIGHT COMM ON FEMORAL ARTERY (DSA, PA X 1)Normal common femoral artery was punctured above the bifurcation and below the markers of the internal ligament. RIGHT COMMON CAR OTID ARTERY (DSA, PA, LATERAL X 3)Limited contrast flow into the cervical ICA is seen. Post thrombectomy, there is complete resolution of the clot with physiolo gical filling of the distal ICA, MCA and its branches. Post Thrombectomy, areas of vasospasm are noted in the right cervical ICA, and right M1. This is seen to resolve partially with intra-arterial verapamil therapy. This is TICI 2C revasc ularization. No aneurysms or other vascular lesions are seen. There is no signif icant atherosclerosis or stenosis. The venous phase demonstrates patent transver se and sigmoid sinuses. IMPRESSION:1. Complete occlusion of the right intracran ial carotid terminus and MCA M1 segment. Post-revascularization, there is resolu tion of the intravascular thrombus and orthodox of flow to the distal MCA bra nches, representing a TICI 2C revascularization. Vasospasm is noted in the ICA a nd MCA, which greatly improved with intra-arterial verapamil infusion. FACULTY ATTESTATION: I, Elfego Ortiz M.D., was present for the entirety of the proc edure. I performed or directly supervised all aspects of the procedure. I perfor med all critical aspects of the case. I interpreted the images and reported the results. Signed: Elfego Ortiz MDReport Verified Date/Time: 11/29/2017 11:2 9:42 Reading Location: [place] [address] Neuro Angio Reading Room Electronically sig efra by: ELFEGO ORTIZ on 11/29/2017 11:29 AM HEMOGLOBIN A1C 2017-11-29 09:12:00* Test Item Value Reference Range Comments HEMOGLOBIN A1C (ALYSSA) (test xlhb=071) 5.6 % 4.3-6.1 TROPONIN [id number] 08:58:00* Test Item Value Reference Range Comments TROPONIN I (ALYSSA) (test sskx=305) 0.42 ng/mL 0.00-0.03 Troponin I (TnI) levels must be interpreted in the context of the presenting sym ptoms and the clinical findings. Elevated TnI levels indicate myocardial damage, but are not specific for ischemic heart disease. Elevated TnI levels are seen in patients with other cardiac conditions (including myocarditis and congestive h eart failure), and slight TnI elevations occur in patients with other conditions , including sepsis, renal failure, acidosis, acute neurological disease, and per sistent tachyarrhythmia.[id number] 07:46:00* Test Item Value Reference Range Comments RPR SCREEN (ALYSSA) (test rsec=207) Nonreactive Nonreactive CT BRAIN WITHOUT IV CONTRAST - [id number] 06:13:00Reason for exam:-> strokeFINAL REPORT CT Head without contrast CLINICAL HISTORY: stroke TECHNIQUE: Contiguous axial images through the head without contrast on the portable CT unit. This exam was performed according to the departmental dose optimization program which includes automated exposure control, adjustment of the mA and/or kV according to the patient size, and/or use of an iterative reconstruction technique. COMPARISON: CT head dated 11/28/2017. FINDINGS:Postsurgical changes of a right frontoparietal temporal craniectomy. Interval evolution of the right MCA territory infarction involving the right frontal, temporal and parietal lobes. Cortical hyperdensity likely represents petechial-like hemorrhage. There is mild herniation of brain parenchyma through the craniectomy defect. There is hyperdense extra-axial fluid along the craniectomy bed with small volume pneumocephalus. There is increased mass effect on the right lateral ventricle. There is increased leftward midline shift now measuring 6 mm foramen of Monro previously 3 mm. Basilar cisterns are patent. No left sided infarctions are identified. Subcutaneous emphysema along the craniectomy bed. Surgical skin alfreda are seen overlying the right calvarium. An endotracheal tube is seen coursing inferiorly. IMPRESSION:Postsurgical changes of a right frontal parietal temporal craniectomy with small volume herniation of brain parenchyma through the craniectomy defect and extra-axial hematoma along the craniectomy bed. Evolution of the right MCA territory infarction with associated petechial-like hemorrhage. Interval incre ase in parenchymal edema resulting in increased mass effect on the adjacent pare nchyma, right lateral ventricle and increased leftward midline shift. Signed: Winsome Hutchinson Verified Date/Time: 11/29/2017 06:13:22 Reading Loca tion: [facility] B1 C013T Transitional Reading Room D [id number] 05:22:00* Test Item Value Reference Range Comments TRIGLYCERIDES (BEAKER) (test mxwm=260) 214 mg/dL CHOLESTEROL (BEAKER) (test vrnh=211) 233 mg/dL HDL CHOLESTEROL (BEAKER) (test qtwv=336) 38 mg/dL LDL CHOLESTEROL CALCULATED (BEAKER) (test cjhh=726) 152 mg/dL Triglyceride Reference Range: Low Risk <150 Borderline 150-199 High Risk 200-499 Very High Risk >=500Cholesterol Reference Range: Low Risk <200 Borderline 200-239 High Risk >240HDL Cholesterol Reference Range: Low Risk >=60 High Risk <40LDL Cholesterol Reference Range: Optimal <100 Near Optimal 100-129 Borderline 130-159 High 160-189 Very High >=190 Fasting BASIC METABOLIC [id number] 05:22:00* Test Item Value Reference Range Comments SODIUM (BEAKER) (test mpym=794) 139 meq/L 136-145 POTASSIUM (BEAKER) (test loaz=454) 3.6 meq/L 3.5-5.1 CHLORIDE (BEAKER) (test ittv=341) 107 meq/L 98-107 CO2 (BEAKER) (test zhel=035) 22 meq/L 22-29 BLOOD UREA NITROGEN (BEAKER) (test ayfq=019) 12 mg/dL 7-21 CREATININE (BEAKER) (test fsat=634) 0.89 mg/dL 0.57-1.25 GLUCOSE RANDOM (BEAKER) (test essd=144) 116 mg/dL 70-105 CALCIUM (BEAKER) (test cqja=313) 8.6 mg/dL 8.4-10.2 EGFR (BEAKER) (test uigr=6947) 93 mL/min/1.73 sq m ESTIMATED GFR IS NOT ACCURATE CREATININE CLEARANCE IN PREDICTING GLOMERULAR FILTRATION RATE. ESTIMATED GFR IS NOT APPLICABLE FOR DIALYSIS PATIENTS. FastingCBC W/PLT COUNT & AUTO [id number] 05:14:00* Test Item Value Reference Range Comments WHITE BLOOD CELL COUNT (BEAKER) (test zrxf=851) 11.4 K/ L 3.5-10.5 RED BLOOD CELL COUNT (BEAKER) (test bzwn=452) 4.27 M/ L 4.63-6.08 HEMOGLOBIN (BEAKER) (test ywvg=053) 13.1 GM/DL 13.7-17.5 HEMATOCRIT (BEAKER) (test erwn=870) 39.7 % 40.1-51.0 MEAN CORPUSCULAR VOLUME (BEAKER) (test vbmr=394) 93.0 fL 79.0-92.2 MEAN CORPUSCULAR HEMOGLOBIN (BEAKER) (test fmjk=666) 30.7 pg 25.7-32.2 MEAN CORPUSCULAR HEMOGLOBIN CONC (BEAKER) (test chqf=469) 33.0 GM/DL 32.3-36.5 RED CELL DISTRIBUTION WIDTH (BEAKER) (test flue=026) 13.0 % 11.6-14.4 PLATELET COUNT (BEAKER) (test hkpr=939) 250 K/CU MM 150-450 MEAN PLATELET VOLUME (BEAKER) (test xydn=155) 10.3 fL 9.4-12.4 NUCLEATED RED BLOOD CELLS (BEAKER) (test fvzn=629) 0 /100 WBC 0-0 NEUTROPHILS RELATIVE PERCENT (BEAKER) (test guwx=575) 82 % LYMPHOCYTES RELATIVE PERCENT (BEAKER) (test qfuz=085) 10 % MONOCYTES RELATIVE PERCENT (BEAKER) (test hkru=781) 7 % EOSINOPHILS RELATIVE PERCENT (BEAKER) (test osah=855) 1 % BASOPHILS RELATIVE PERCENT (BEAKER) (test juzx=153) 0 % NEUTROPHILS ABSOLUTE COUNT (BEAKER) (test uovv=029) 9.35 K/ L 1.78-5.38 LYMPHOCYTES ABSOLUTE COUNT (BEAKER) (test morf=825) 1.16 K/ L 1.32-3.57 MONOCYTES ABSOLUTE COUNT (BEAKER) (test knmh=270) 0.74 K/ L 0.30-0.82 EOSINOPHILS ABSOLUTE COUNT (BEAKER) (test rkuz=958) 0.08 K/ L 0.04-0.54 BASOPHILS ABSOLUTE COUNT (BEAKER) (test sigt=077) 0.02 K/ L 0.01-0.08 IMMATURE GRANULOCYTES-RELATIVE PERCENT (BEAKER) (test cdds=8150) 0 % 0-1 BLOOD GAS, [id number] 05:03:00* Test Item Value Reference Range Comments PH ARTERIAL (BEAKER) (test wixg=972) 7.38 7.35-7.45 PCO2 ARTERIAL (BEAKER) (test rhxl=364) 38 mmHg 35-45 PO2 ARTERIAL (BEAKER) (test cnyx=024) 127 mmHg 80-90 O2 SATURATION ARTERIAL (BEAKER) (test sosn=370) 98.5 % 96.0-97.0 HCO3 ARTERIAL (BEAKER) (test dbgq=027) 22 mmol/L 21-29 BASE EXCESS ARTERIAL (BEAKER) (test mqrg=148) -2.8 mmol/L -2.0-3.0 PATIENT TEMPERATURE (BEAKER) (test npxy=0667) 37.0 C FIO2 (BEAKER) (test qegq=6061) 60.0 % RAD, CHEST, 1 VIEW, NON [id number] 04:08:00Reason for exam:->CEREBROVASCULAR ACCIDENTShould this be performed at the bedside?->YesFINAL REPORT RAD, CHEST, 1 VIEW, NON DEPT INDICATION: CEREBROVASCULAR ACCIDENT COMPARISON: Prior day's exam FINDINGS: Portable frontal view of the chest. IMPRESSION: Support Lines: Endotracheal tube terminates 3 cm above the neal. Lungs and pleura: Low lung volumes without focal consolidation or effusion. No pneumothorax.Heart and mediastinum: Stable contours. Stable pacer apparatus.Additional findings: None. Signed: JR Rios Robert MDReport Verified Date/Time: 11/29/2017 04:08:59 Reading Location: [address] Reading Room Electronically signed by: HILTON RIOS on 2017 04:08 AM POCT-GLUCOSE [id number] 02:38:00* Test Item Value Reference Range Comments POC-GLUCOSE METER ([employer]) (test peqv=8029) 97 mg/dL 70-110 TESTED AT [address] [address] TROPONIN [id number] 00:43:00* Test Item Value Reference Range Comments TROPONIN I (ComparaMejor.comAKER) (test qtav=946) 0.39 ng/mL 0.00-0.03 Troponin I (TnI) levels must be interpreted in the context of the presenting sym ptoms and the clinical findings. Elevated TnI levels indicate myocardial damage, but are not specific for ischemic heart disease. Elevated TnI levels are seen in patients with other cardiac conditions (including myocarditis and congestive h eart failure), and slight TnI elevations occur in patients with other conditions , including sepsis, renal failure, acidosis, acute neurological disease, and per sistent tachyarrhythmia.[id number] 22:47:00* Test Item Value Reference Range Comments FIBRINOGEN LEVEL (BEAKER) (test kjee=886) 109 mg/dl 225-434 PROTHROMBIN TIME/[id number] 22:42:00* Test Item Value Reference Range Comments PROTIME (BEAKER) (test gnqm=730) 16.3 seconds 11.7-14.7 INR (BEAKER) (test ymcr=294) 1.3 <=5.9 RECOMMENDED COUMADIN/WARFARIN INR THERAPY RANGESSTANDARD DOSE: 2.0 - 3.0 Inclu vy: PROPHYLAXIS for venous thrombosis, systemic embolization; TREATMENT for wilma ous thrombosis and/or pulmonary embolus.HIGH RISK: Target INR is 2.5-3.5 for pat ients with mechanical heart valves.[id number] 22:42:00* Test Item Value Reference Range Comments PARTIAL THROMBOPLASTIN TIME (BEAKER) (test cqak=784) 30.7 seconds 22.5-36.0 CBC W/PLT COUNT & AUTO [id number] 22:34:00* Test Item Value Reference Range Comments WHITE BLOOD CELL COUNT (BEAKER) (test ntio=623) 10.8 K/ L 3.5-10.5 RED BLOOD CELL COUNT (BEAKER) (test fffj=896) 4.49 M/ L 4.63-6.08 HEMOGLOBIN (BEAKER) (test zpvf=400) 14.4 GM/DL 13.7-17.5 HEMATOCRIT (BEAKER) (test bjls=954) 41.7 % 40.1-51.0 MEAN CORPUSCULAR VOLUME (BEAKER) (test orew=793) 92.9 fL 79.0-92.2 MEAN CORPUSCULAR HEMOGLOBIN (BEAKER) (test boll=054) 32.1 pg 25.7-32.2 MEAN CORPUSCULAR HEMOGLOBIN CONC (BEAKER) (test jtph=999) 34.5 GM/DL 32.3-36.5 RED CELL DISTRIBUTION WIDTH (BEAKER) (test alqy=409) 12.9 % 11.6-14.4 PLATELET COUNT (BEAKER) (test mwpb=114) 274 K/CU MM 150-450 MEAN PLATELET VOLUME (BEAKER) (test iibt=895) 10.4 fL 9.4-12.4 NUCLEATED RED BLOOD CELLS (BEAKER) (test guql=159) 1 /100 WBC 0-0 NEUTROPHILS RELATIVE PERCENT (BEAKER) (test nvjv=222) 75 % LYMPHOCYTES RELATIVE PERCENT (BEAKER) (test gbdx=315) 15 % MONOCYTES RELATIVE PERCENT (BEAKER) (test idin=589) 8 % EOSINOPHILS RELATIVE PERCENT (BEAKER) (test yerd=427) 1 % BASOPHILS RELATIVE PERCENT (BEAKER) (test rqwe=749) 0 % NEUTROPHILS ABSOLUTE COUNT (BEAKER) (test oqoz=738) 8.15 K/ L 1.78-5.38 LYMPHOCYTES ABSOLUTE COUNT (BEAKER) (test fgat=011) 1.67 K/ L 1.32-3.57 MONOCYTES ABSOLUTE COUNT (BEAKER) (test ywkz=754) 0.83 K/ L 0.30-0.82 EOSINOPHILS ABSOLUTE COUNT (BEAKER) (test kweb=892) 0.08 K/ L 0.04-0.54 BASOPHILS ABSOLUTE COUNT (BEAKER) (test offo=744) 0.03 K/ L 0.01-0.08 IMMATURE GRANULOCYTES-RELATIVE PERCENT (BEAKER) (test yhwr=9389) 1 % 0-1 TROPONIN [id number] 21:38:00* Test Item Value Reference Range Comments TROPONIN I (BEAKER) (test utif=540) 0.43 ng/mL 0.00-0.03 Troponin I (TnI) levels must be interpreted in the context of the presenting sym ptoms and the clinical findings. Elevated TnI levels indicate myocardial damage, but are not specific for ischemic heart disease. Elevated TnI levels are seen in patients with other cardiac conditions (including myocarditis and congestive h eart failure), and slight TnI elevations occur in patients with other conditions , including sepsis, renal failure, acidosis, acute neurological disease, and per sistent tachyarrhythmia.HEPATIC FUNCTION [id number] 21:32:00* Test Item Value Reference Range Comments TOTAL PROTEIN (BEAKER) (test vhbk=108) 6.7 gm/dL 6.0-8.3 Specimen slightly hemolyzed ALBUMIN (BEAKER) (test cite=7672) 3.8 g/dL 3.5-5.0 Specimen slightly hemolyzed BILIRUBIN TOTAL (BEAKER) (test bkqc=145) 0.3 mg/dL 0.2-1.2 Specimen slightly hemolyzed BILIRUBIN DIRECT (BEAKER) (test wkmq=569) 0.1 mg/dL 0.1-0.5 Specimen slightly hemolyzed ALKALINE PHOSPHATASE (BEAKER) (test jadh=444) 63 U/L 40-150 AST (SGOT) (BEAKER) (test jykz=060) 32 U/L 5-34 Specimen slightly hemolyzed ALT (SGPT) (BEAKER) (test alok=254) 35 U/L 6-[address] BRAIN WITHOUT IV CONTRAST - [id number] 20:33:00Reason for exam:->R- MCA strokeFINAL REPORT CT head without contrast 11/28/2017 8:31 PM CLINICAL HISTORY: R- MCA stroke TECHNIQUE: Contiguous axial images through the head without contrast were obtained utilizing the portable CT unit. This examination was performed according to our departmental dose optimization program, which includes automated exposure control, adjustment of the mA and/or kV according to patient size, and/or use of iterated reconstruction technique. COMPARISON: 11/28/2017 at 1427 FINDINGS: There has been development of a large volume acute nonhemorrhagic right middle cerebral artery distribution infarct. Mass effect results in partial effacement of the right lateral ventricle, without entrapment. Midline shift measures 2 mm at the septi pellucid. There is no parenchymal herniation. The paranasal sinuses and tympanomastoid cavities are well-aerated. The skull is unremarkable. IMPRESSION: Interval development of a large volume acute nonhemorrhagic right MCA infarct without current concerning mass effect. Signed: Tae Olivares MDReport Verified Date/Time: 11/28/2017 20:33:39 Reading Location: [facility] Radiology Reading Room - LACTIC ACID, [id number] 15:15:00* Test Item Value Reference Range Comments POC-LACTIC ACID, VENOUS (BEAKER) (test xdtn=2867) 2.6 mmol/L 0.9-1.7 TESTED AT [address] [address] TROPONIN [id number] 15:11:00* Test Item Value Reference Range Comments TROPONIN I (BEAKER) (test koyn=537) 0.45 ng/mL 0.00-0.03 Troponin I (TnI) levels must be interpreted in the context of the presenting sym ptoms and the clinical findings. Elevated TnI levels indicate myocardial damage, but are not specific for ischemic heart disease. Elevated TnI levels are seen in patients with other cardiac conditions (including myocarditis and congestive h eart failure), and slight TnI elevations occur in patients with other conditions , including sepsis, renal failure, acidosis, acute neurological disease, and per sistent tachyarrhythmia.B-TYPE NATRIURETIC FACTOR (BNP)2017-11-28 15:07:00* Test Item Value Reference Range Comments B-TYPE NATRIURETIC PEPTIDE (ALYSSA) (test fwpj=987) 542 pg/mL 0-100 CT, CAROTID, [id number] 15:03:00FINAL REPORT CTA head and neck with contrast [...] head 11/28/2017 at 1326 hours FINDINGS: CTA neck:There are streak artifacts from the shoulders, dense [...] artery is larger than the left. CTA head:There is occlusion of the right supraclinoid ICA and right MCA proximal M1 segment. Opacification of the more distal M1 segment and proximal right MCA sylvian fissure branches reflects a component of collateral supply. However, the re is loss of right MCA branches in the acute infarct distribution. There is mil dly diminished opacification of the right intracranial ICA compared to the left due to the distal ICA occlusion. The remaining proximal [place] vessels demonstrate no significant stenosis. No saccular aneurysm is seen. Other findin gs:The noncontrast head CT demonstrates an acute large volume right MCA territor y developing infarct, similar to the earlier study of 1326 hours. No acute hemor rhage or mass effect is seen. The imaged neck and upper chest soft tissues are o therwise without worrisome finding. IMPRESSION: 1. 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 2. No evident cervical ICA stenosis bilaterall y by NASCET criteria. 3. No significant stenosis in the cervical vertebral arter ies. Findings discussed with Dr. Vazquez (neurology ICU housesta) at 2:45 PM. T he patient has been transferred to neuroangiography for possible endovascular th erapy. Signed: Maty Hobbs MDReport Verified Date/Time: 11/28/2017 15: 03:16 Reading Location: [address] Neuro Reading Room , CTANGIO BRAIN 2017-11-28 15:03:00FINAL REPORT CTA head and neck with contrast [...] head 11/28/2017 at 1326 hours FINDINGS: CTA neck:There are streak artifacts from the shoulders, dense [...] artery is larger than the left. CTA head:There is occlusion of the right supraclinoid ICA [...] the distal ICA occlusion. The remaining proximal [place] vessels demonstrate no significant stenosis. No saccular aneurysm is seen. Other findin gs:The noncontrast head CT demonstrates an acute large volume right MCA territor y developing infarct, similar to the earlier study of 1326 hours. No acute hemor rhage or mass effect is seen. The imaged neck and upper chest soft tissues are o therwise without worrisome finding. IMPRESSION: 1. 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 2. No evident cervical ICA stenosis bilaterall y by NASCET criteria. 3. No significant stenosis in the cervical vertebral arter ies. Findings discussed with Dr. Vazquez (neurology ICU housestaff) at 2:45 PM. T he patient has been transferred to neuroangiography for possible endovascular th erapy. Signed: Maty Hobbs MDReport Verified Date/Time: 11/28/2017 15: 03:16 Reading Location: [address] Neuro Reading Room , CHEST, 1 VIEW, NON [id number] 15:02:00Reason for exam:->chest painShould this be performed at the bedside?->YesFINAL REPORT TECHNIQUE: Frontal chest radiograph dated 11/28/2017. CLINICAL HISTORY: Chest pain COMPARISON STUDY: Chest radiograph dated 11/14/2017 IMPRESSION:Left-sided defibrillator is unchanged. No focal consolidation. No pleural effusion or pneumothorax. Cardiomediastinal silhouette is normal in size. No pulmonary edema. No fracture. Signed: Cheri Lara MDReport Verified Date/Time: 11/28/2017 15:02:25 Reading Location: [facility] Radiology Reading Room [id number] 15:00:00* Test Item Value Reference Range Comments MAGNESIUM (BEAKER) (test gzdx=607) 2.4 mg/dL 1.6-2.6 Specimen slightly hemolyzed COMPREHENSIVE METABOLIC [id number] 15:00:00* Test Item Value Reference Range Comments TOTAL PROTEIN (BEAKER) (test ijtl=590) 7.4 gm/dL 6.0-8.3 Specimen slightly hemolyzed ALBUMIN (BEAKER) (test buyz=6764) 4.2 g/dL 3.5-5.0 Specimen slightly hemolyzed ALKALINE PHOSPHATASE (BEAKER) (test nxti=448) 66 U/L 40-150 BILIRUBIN TOTAL (BEAKER) (test hcej=686) 0.3 mg/dL 0.2-1.2 Specimen slightly hemolyzed SODIUM (BEAKER) (test ljbw=551) 141 meq/L 136-145 POTASSIUM (BEAKER) (test lbnq=905) 4.6 meq/L 3.5-5.1 Specimen slightly hemolyzed CHLORIDE (BEAKER) (test nknp=639) 104 meq/L 98-107 CO2 (BEAKER) (test osik=111) 26 meq/L 22-29 BLOOD UREA NITROGEN (BEAKER) (test uwkw=967) 13 mg/dL 7-21 CREATININE (BEAKER) (test ycwr=805) 1.17 mg/dL 0.57-1.25 Specimen slightly hemolyzed GLUCOSE RANDOM (BEAKER) (test twtl=762) 89 mg/dL 70-105 CALCIUM (BEAKER) (test hfai=051) 9.8 mg/dL 8.4-10.2 AST (SGOT) (BEAKER) (test erwb=375) 34 U/L 5-34 Specimen slightly hemolyzed ALT (SGPT) (BEAKER) (test qleb=170) 39 U/L 6-55 Specimen slightly hemolyzed EGFR (BEAKER) (test ljqd=1298) 68 mL/min/1.73 sq m ESTIMATED GFR IS NOT ACCURATE CREATININE CLEARANCE IN PREDICTING GLOMERULAR FILTRATION RATE. ESTIMATED GFR IS NOT APPLICABLE FOR DIALYSIS PATIENTS. PT/[id number] 14:48:00* Test Item Value Reference Range Comments PROTIME (BEAKER) (test pkuo=367) 12.8 seconds 11.7-14.7 INR (BEAKER) (test osxs=069) 1.0 <=5.9 PARTIAL THROMBOPLASTIN TIME (BEAKER) (test eitn=766) 27.5 seconds 22.5-36.0 RECOMMENDED COUMADIN/WARFARIN INR THERAPY RANGESSTANDARD DOSE: 2.0 - 3.0 Inclu vy: PROPHYLAXIS for venous thrombosis, systemic embolization; TREATMENT for wilma ous thrombosis and/or pulmonary embolus.HIGH RISK: Target INR is 2.5-3.5 for pat ients with mechanical heart valves.CBC W/PLT COUNT & AUTO [id number] 14:30:00* Test Item Value Reference Range Comments WHITE BLOOD CELL COUNT (BEAKER) (test njkb=715) 8.5 K/ L 3.5-10.5 RED BLOOD CELL COUNT (BEAKER) (test tkta=748) 4.89 M/ L 4.63-6.08 HEMOGLOBIN (BEAKER) (test axzt=519) 15.4 GM/DL 13.7-17.5 HEMATOCRIT (BEAKER) (test bpky=799) 46.1 % 40.1-51.0 MEAN CORPUSCULAR VOLUME (BEAKER) (test jvpg=306) 94.3 fL 79.0-92.2 MEAN CORPUSCULAR HEMOGLOBIN (BEAKER) (test hdup=553) 31.5 pg 25.7-32.2 MEAN CORPUSCULAR HEMOGLOBIN CONC (BEAKER) (test kghh=720) 33.4 GM/DL 32.3-36.5 RED CELL DISTRIBUTION WIDTH (BEAKER) (test esby=981) 12.8 % 11.6-14.4 PLATELET COUNT (BEAKER) (test kawd=724) 292 K/CU MM 150-450 MEAN PLATELET VOLUME (BEAKER) (test msuy=570) 10.4 fL 9.4-12.4 NUCLEATED RED BLOOD CELLS (BEAKER) (test fpwa=412) 0 /100 WBC 0-0 NEUTROPHILS RELATIVE PERCENT (BEAKER) (test oewt=964) 51 % LYMPHOCYTES RELATIVE PERCENT (BEAKER) (test vojn=656) 33 % MONOCYTES RELATIVE PERCENT (BEAKER) (test fmwb=524) 10 % EOSINOPHILS RELATIVE PERCENT (BEAKER) (test mrwp=210) 5 % BASOPHILS RELATIVE PERCENT (BEAKER) (test isab=772) 1 % NEUTROPHILS ABSOLUTE COUNT (BEAKER) (test lrvl=804) 4.36 K/ L 1.78-5.38 LYMPHOCYTES ABSOLUTE COUNT (BEAKER) (test pate=806) 2.82 K/ L 1.32-3.57 MONOCYTES ABSOLUTE COUNT (BEAKER) (test proo=418) 0.84 K/ L 0.30-0.82 EOSINOPHILS ABSOLUTE COUNT (BEAKER) (test cyja=932) 0.41 K/ L 0.04-0.54 BASOPHILS ABSOLUTE COUNT (BEAKER) (test jask=374) 0.05 K/ L 0.01-0.08 IMMATURE GRANULOCYTES-RELATIVE PERCENT (BEAKER) (test dnjl=0359) 0 % 0-1 CT, BRAIN/STROKE [id number] 13:43:00Reason for exam:->strokeWhat is the patient's sedation requirement?->No SedationFINAL REPORT CT head without contrast 11/28/2017 1:36 PM CLINICAL HISTORY: Neuro deficit(s), subacutestroke TECHNIQUE: Axial noncontrast CT images through the [...] differentiation in the right corpus striatum and ins robert. There is no hemorrhage, extra-axial collection, mass, hydrocephalus, or mid line shift. The visualized paranasal sinuses and mastoid air cells are well aera cj. The skull is intact. 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 Findings were discussed with Dr. Daniel venegas on 11/28/2017 at 1335. Signed: Tae Olivares MDReport Verified Date/Time: 11/28/2017 13:43:00 Reading Location: [facility] Radiology Reading Room El ectronically signed by: TAE OLIVARES M.D. on 11/28/2017 01:43 PM RAD, CHEST, 1 VIEW, NON [id number] 03:57:00Reason for exam:->r/o ptxShould this be performed at the bedside?->YesFINAL REPORT RAD, CHEST, 1 VIEW, NON DEPT INDICATION: r/o ptx COMPARISON: Prior day's exam FINDINGS: Portable frontal view of the chest. IMPRESSION: Support Lines: Stable. Lungs and pleura: Clear lungs. No pneumothorax.Heart and mediastinum: Stable contours. Stable pacer apparatus.Additional findings: None. Signed: JR Blanca, Hilton Michaels Verified Date/Time: 11/14/2017 03:57:50 Reading Location: [address] Reading Room C METABOLIC [id number] 01:52:00* Test Item Value Reference Range Comments SODIUM (BEAKER) (test kfab=343) 136 meq/L 136-145 POTASSIUM (BEAKER) (test zyry=095) 4.1 meq/L 3.5-5.1 Specimen slightly hemolyzed CHLORIDE (BEAKER) (test zjak=863) 105 meq/L 98-107 CO2 (BEAKER) (test eyyc=952) 20 meq/L 22-29 BLOOD UREA NITROGEN (BEAKER) (test mxff=565) 16 mg/dL 7-21 CREATININE (BEAKER) (test ocgc=108) 0.87 mg/dL 0.57-1.25 Specimen slightly hemolyzed GLUCOSE RANDOM (BEAKER) (test dmtn=987) 125 mg/dL 70-105 CALCIUM (BEAKER) (test vbxw=464) 8.8 mg/dL 8.4-10.2 EGFR (BEAKER) (test koks=9451) 96 mL/min/1.73 sq m ESTIMATED GFR IS NOT ACCURATE CREATININE CLEARANCE IN PREDICTING GLOMERULAR FILTRATION RATE. ESTIMATED GFR IS NOT APPLICABLE FOR DIALYSIS PATIENTS. CBC (HEMOGRAM ONLY)2017-11-14 01:32:00* Test Item Value Reference Range Comments WHITE BLOOD CELL COUNT (BEAKER) (test fyeq=191) 8.9 K/ L 3.5-10.5 RED BLOOD CELL COUNT (BEAKER) (test zbzk=943) 4.68 M/ L 4.63-6.08 HEMOGLOBIN (BEAKER) (test fyxf=738) 15.0 GM/DL 13.7-17.5 HEMATOCRIT (BEAKER) (test wsfu=956) 43.3 % 40.1-51.0 MEAN CORPUSCULAR VOLUME (BEAKER) (test jcsv=305) 92.5 fL 79.0-92.2 MEAN CORPUSCULAR HEMOGLOBIN (BEAKER) (test ofgv=192) 32.1 pg 25.7-32.2 MEAN CORPUSCULAR HEMOGLOBIN CONC (BEAKER) (test qiog=033) 34.6 GM/DL 32.3-36.5 RED CELL DISTRIBUTION WIDTH (BEAKER) (test sgho=424) 13.6 % 11.6-14.4 PLATELET COUNT (BEAKER) (test zgmc=157) 178 K/CU MM 150-450 MEAN PLATELET VOLUME (BEAKER) (test bgai=336) 11.1 fL 9.4-12.4 NUCLEATED RED BLOOD CELLS (BEAKER) (test fbfz=880) 0 /100 WBC 0-0 POCT-GLUCOSE [id number] 23:04:00* Test Item Value Reference Range Comments POC-GLUCOSE METER (BEAKER) (test jyvj=5020) 128 mg/dL 70-110 TESTED AT [facility] [address] [facility] [address] RAD, CHEST, 1 VIEW, NON [id number] 12:48:00Reason for exam:->r/o ptxShould this be performed at the bedside?->YesFINAL REPORT Chest one view Discussion: Left chest pacemaker in place. No effusion or pneumothorax. Lungs clear. Heart size normal. Signed: Marylin Guthrie Verified Date/Time: 11/13/2017 12:48:22 Reading Location: [facility] Radiology Reading Room [id number] 06:07:00* Test Item Value Reference Range Comments MAGNESIUM (BEAKER) (test boag=524) 2.3 mg/dL 1.6-2.6 COMPREHENSIVE METABOLIC [id number] 06:07:00* Test Item Value Reference Range Comments TOTAL PROTEIN (BEAKER) (test giwi=129) 6.8 gm/dL 6.0-8.3 ALBUMIN (BEAKER) (test avuu=8607) 4.2 g/dL 3.5-5.0 ALKALINE PHOSPHATASE (BEAKER) (test tqaq=050) 54 U/L 40-150 BILIRUBIN TOTAL (BEAKER) (test akeb=131) 0.4 mg/dL 0.2-1.2 SODIUM (BEAKER) (test whne=295) 140 meq/L 136-145 POTASSIUM (BEAKER) (test sbmb=258) 4.2 meq/L 3.5-5.1 CHLORIDE (BEAKER) (test opyx=036) 106 meq/L 98-107 CO2 (BEAKER) (test xqro=753) 24 meq/L 22-29 BLOOD UREA NITROGEN (BEAKER) (test wayf=103) 16 mg/dL 7-21 CREATININE (BEAKER) (test egln=118) 0.92 mg/dL 0.57-1.25 GLUCOSE RANDOM (BEAKER) (test dgym=302) 101 mg/dL 70-105 CALCIUM (BEAKER) (test ikzn=191) 9.2 mg/dL 8.4-10.2 AST (SGOT) (BEAKER) (test qmqw=719) 26 U/L 5-34 ALT (SGPT) (BEAKER) (test ltdz=147) 31 U/L 6-55 EGFR (BEAKER) (test rzec=2545) 90 mL/min/1.73 sq m ESTIMATED GFR IS NOT ACCURATE CREATININE CLEARANCE IN PREDICTING GLOMERULAR FILTRATION RATE. ESTIMATED GFR IS NOT APPLICABLE FOR DIALYSIS PATIENTS. [id number] 06:01:00* Test Item Value Reference Range Comments PARTIAL THROMBOPLASTIN TIME (BEAKER) (test pyce=684) 26.3 seconds 22.5-36.0 PROTHROMBIN [id number] 06:00:00* Test Item Value Reference Range Comments PROTIME (BEAKER) (test xquz=538) 13.9 seconds 11.7-14.7 INR (BEAKER) (test gdap=662) 1.1 <=5.9 RECOMMENDED COUMADIN/WARFARIN INR THERAPY RANGESSTANDARD DOSE: 2.0 - 3.0 Inclu vy: PROPHYLAXIS for venous thrombosis, systemic embolization; TREATMENT for wilma ous thrombosis and/or pulmonary embolus.HIGH RISK: Target INR is 2.5-3.5 for pat ients with mechanical heart valves.CBC W/PLT COUNT & AUTO [id number] 05:50:00* Test Item Value Reference Range Comments WHITE BLOOD CELL COUNT (BEAKER) (test hnzm=100) 6.9 K/ L 3.5-10.5 RED BLOOD CELL COUNT (BEAKER) (test oouq=266) 4.84 M/ L 4.63-6.08 HEMOGLOBIN (BEAKER) (test sitr=886) 15.4 GM/DL 13.7-17.5 HEMATOCRIT (BEAKER) (test pbsb=219) 45.7 % 40.1-51.0 MEAN CORPUSCULAR VOLUME (BEAKER) (test wphc=265) 94.4 fL 79.0-92.2 MEAN CORPUSCULAR HEMOGLOBIN (BEAKER) (test lphm=152) 31.8 pg 25.7-32.2 MEAN CORPUSCULAR HEMOGLOBIN CONC (BEAKER) (test pggc=822) 33.7 GM/DL 32.3-36.5 RED CELL DISTRIBUTION WIDTH (BEAKER) (test btxy=913) 13.8 % 11.6-14.4 PLATELET COUNT (BEAKER) (test kpmv=484) 210 K/CU MM 150-450 MEAN PLATELET VOLUME (BEAKER) (test ecti=090) 10.8 fL 9.4-12.4 NUCLEATED RED BLOOD CELLS (BEAKER) (test pmxm=709) 0 /100 WBC 0-0 NEUTROPHILS RELATIVE PERCENT (BEAKER) (test raxr=935) 47 % LYMPHOCYTES RELATIVE PERCENT (BEAKER) (test ljtz=533) 40 % MONOCYTES RELATIVE PERCENT (BEAKER) (test jrcc=831) 9 % EOSINOPHILS RELATIVE PERCENT (BEAKER) (test tcxc=354) 4 % BASOPHILS RELATIVE PERCENT (BEAKER) (test irbs=271) 0 % NEUTROPHILS ABSOLUTE COUNT (BEAKER) (test jktu=132) 3.28 K/ L 1.78-5.38 LYMPHOCYTES ABSOLUTE COUNT (BEAKER) (test grjs=470) 2.74 K/ L 1.32-3.57 MONOCYTES ABSOLUTE COUNT (BEAKER) (test dnjz=579) 0.59 K/ L 0.30-0.82 EOSINOPHILS ABSOLUTE COUNT (BEAKER) (test tzuw=104) 0.29 K/ L 0.04-0.54 BASOPHILS ABSOLUTE COUNT (BEAKER) (test zdvw=268) 0.03 K/ L 0.01-0.08 IMMATURE GRANULOCYTES-RELATIVE PERCENT (BEAKER) (test wtgf=4426) 0 % 0-1 MR, CARDIAC, [id number] 17:31:00Reason for Exam:->i50.43FINAL REPORT Cardiac MRI dated 09 July 2017. [...] dynamic cine imaging were performed in multiple projec tions before and after contrast administration. Thereafter, gadolinium was admi nistered, which was followed by viability/scar imaging. Finally, flow quantific ation sequences were performed to determine the degree of valvular dysfunction. Please refer to the contrast sheet scanned in the EPIC system for the amount a nd route of contrast given. Scanning blood pressure was 103/67. Patient weighs 1 95 pounds, with height of 64 inches. Body surface area is approximately 2 sq m. FINDINGS: The chest wall and mediastinum appears unremarkable. The pericardium and pulmonary arteries appear normal. Mild pericardial effusion is seen, conside red physiologic in nature. The central pulmonary artery is normal in calibre. Li mited imaging through the lungs reveals no gross abnormalities, however, MR is n ot optimised in the assessment of pulmonary parenchymal lung disease. The card iac chambers demonstrate normal atrioventricular and ventriculoarterial concorda nce, and systemic and pulmonary venous return. The thoracic aorta is normal in course, caliber, and contour. There is no evidence of acute aortic pathology, iyer ch as dissection, intramural hematoma, or contained rupture. The left ventricle is at the upper limits of normal in size after indexed to body surface area is, with severe systolic dysfunction. There is no evidence of hypertrophic cardiomy opathy or left ventricular noncompaction. The entire interventricular septum is severely hypokinetic/akinetic, and the distal two third of the anterior wall is also severely hypokinetic/akinetic. The lateral wall and the inferior miller are also hypokinetic though has somewhat better contraction when compared to the sep rylan and anterior wall. Quantitative values are as follows: DJG=451 cc; MOY=869 c c; stroke volume=60 cc; and ejection fraction=29%. Calculated absolute cardiac output=3.8 liters/min. Absolute left ventricular mmyk=384 grams. Index LVEDV is 102 cc/sq m that is at the upper limits of normal. The right ventricle is normal in size and function. Quantitative values are as follows: VKW=823 cc; ESV=75 cc; stroke volume=53 cc; and ejection fraction=41%. Cine imaging and flow quanti fication reveals normal mitral, aortic and tricuspid valve function. Viability /scar imaging is abnormal. Whilst the basal LV is unremarkable, majority of the septum has transmural hyperenhancement identified, extending into the mid and pa rt of the distal anterior wall. Much of the apex is viable myocardium except in the small area of the anteroapical apex. The lateral wall is viable and much of the inferior wall is also viable though there is an area of the distal inferior wall with hyperenhancement identified. Finally, there is hyperenhancement ident ified in the apical area / /distal right ventricle. Left ventricular long axis s train is reduced,=-6.4% (normal MRI reference range is approximately - 16.5 + / - 2.2 percent). Ventricular thrombus is not present. There is left and right atrial enlargement identified. CONCLUSIONS: 1. The left ventricle is at the uppe r limits of normal in size with moderately severe systolic dysfunction. Segmenta l wall motion abnormalities as described above. There is no evidence of left wilma tricular noncompaction. Ejection fraction is quantified to be 29%. Quantitative left ventricular functional values are as described above. Viability/scar imagi ng is abnormal. Whilst the basal LV is unremarkable, majority of the septum has transmural hyperenhancement identified, extending into the mid and part of the d istal anterior wall. Much of the apex is viable myocardium except in the small a loraine of the anteroapical apex. The lateral wall is viable and much of the inferi or wall is also viable though there is an area of the distal inferior wall with hyperenhancement identified. Patchy hyperenhancement is also identified in both papillary muscles at the mid level of the LV. The right ventricle is normal in size and function. Quantitative right ventricular functional values are as descr ibed above. There is hyperenhancement identified in the apical/distal right vent ming. The exact aetiology of the hyperenhancement is not immediately apparent. Patient indicates he has no obstructive coronary disease. Infiltrative conditi on suggest myocardial sarcoidosis could be a potential aetiology, however, no ob vious hilar adenopathy is appreciated in this current examination. Please tiny correlate with appropriate clinical aetiology. Reduction in left ventricular inez g axis strain. 2. Left and right atrial enlargement. Signed: Jacob Tolbert Verified Date/Time: 07/09/2017 17:31:06 Reading Location: [place] [id number] ardiology MRI
== END 2018-02-09 22:50 | disposition other institution (70) ==
LOC: FSED 20:34
DX: R53.1 Weakness (principal); R42 Dizziness and giddiness; I48.92 Unspecified atrial flutter; I21.4 Non-ST elevation (NSTEMI) myocardial infarction; I49.8 Other specified cardiac arrhythmias; I50.9 Heart failure, unspecified; I69.898 Other sequelae of other cerebrovascular disease
CPT/HCPCS: 71045; 80053; 82553; 83880; 84484; 85025; 85610; 99284

== ENCOUNTER 2022-10-18 03:10 | Emergency (ER) | payer MEDICARE ==
[~2022-10-18] VITALS: Ht 162.6 cm; Wt 84.4 kg
[~2022-10-18 03:10] MED LIST: ASPIRIN81 MG PO; ATORVASTATIN CA20 MG PO; DIGOXIN125 MCG PO; ENTRESTO PO; LEVETIRACETAM500 MG PO; VITAMIN D1000 UNI1 PO
[2022-10-18] MEDS ORDERED: SODIUM CHLORIDE 0.9% 1000ML 2,000 ML ONE (03:15)
[2022-10-18] MEDS ORDERED: ADENOSINE 6MG/2ML 4 ML ONE (03:15)
[2022-10-18] MEDS ORDERED: ASPIRIN 81 MG CHEW TAB ONE (03:15)
[2022-10-18] MEDS ORDERED: ONDANSETRON HCL INJ 2MG/ML 2ML 2 MG/ML VIAL IV STA (03:17)
[2022-10-18] MEDS ORDERED: ADENOSINE 6MG/2ML 0 ML ONE (03:23)
[2022-10-18] MEDS ORDERED: AMIODARONE HCL 100 ML IV ONE (03:24)
[2022-10-18] MEDS ORDERED: ADENOSINE 6 MG/2 ML VIAL IV ONE ×2 (03:30)
[2022-10-18] MEDS ORDERED: ASPIRIN 325 MG TAB PO ONE (03:30)
[2022-10-18] MEDS ORDERED: SODIUM CHLORIDE 0.9% 1000ML 1,000 ML IV ONE ×2 (03:30→04:15)
[2022-10-18 03:39] LABS: BASOPHILS % 0.2 % (0.0-1.0); EOSINOPHILS % 0.1 % (0.0-6.0); HEMOGLOBIN 16.6 g/dL (14.0-18.0); LYMPHOCYTES # (AUTO) 1.7 (1.0-3.2); LYMPHOCYTES % 15.3 % (18.0-39.1); MEAN CORPUSCULAR HEMOGLOBIN 31.4 pg (28-32); MEAN CORPUSCULAR HGB CONC 33.2 g/dL (31-35); MEAN CORPUSCULAR VOLUME 94.5 fL (81-99); MONOCYTES # (AUTO) 1.1 (0.2-0.8); NEUTROPHILS # (AUTO) 8.2 (2.1-6.9); PLATELET COUNT 164 x10e3/uL (140-360); RED BLOOD COUNT 5.29 x10e6/uL (4.3-5.7); RED CELL DISTRIBUTION WIDTH 13.9 % (11.7-14.4)
[2022-10-18] MEDS ORDERED: AMIODARONE HCL 150 MG/100 ML BAG IV ONE (03:45)
[2022-10-18 03:49] LABS: INR 1.16; PARTIAL THROMBOPLASTIN TIME 31.7 seconds (23.8-35.5); PROTHROMBIN TIME 15.3 seconds (11.9-14.5)
[2022-10-18 03:59] LABS: ALBUMIN 4.2 g/dL (3.5-5.0); ALBUMIN/GLOBULIN RATIO 1.4 (0.8-2.0); ANION GAP 19.3 mmol/L (8-16); CREATININE, SERUM 2.6 mg/dL (0.72-1.25); POTASSIUM 3.3 mmol/L (3.5-5.1)
[2022-10-18] MEDS ORDERED: SODIUM CHLORIDE 0.9% IV ONE ×3 (04:00→04:15)
[2022-10-18 04:01] LABS: B-TYPE NATRIURETIC PEPTIDE2 2764.5 pg/mL (0-100)
[2022-10-18] MEDS ORDERED: NOREPINEPHRINE 8 MG/D5W 250 ML 250 ML IV SCH (04:45)
[2022-10-18 05:04] VITALS: BP 80/61; PULSE 69
[2022-10-18 05:34] VITALS: O2SAT 99
[2022-10-18] MEDS ORDERED: SODIUM CHLORIDE FLUSH 10 ML SYR IV PRN (06:00)
== END 2022-10-18 05:51 | disposition other institution (70) ==
LOC: ER 03:13
DX: R07.9 Chest pain, unspecified (principal); I21.4 Non-ST elevation (NSTEMI) myocardial infarction; I47.20 Ventricular tachycardia, unspecified; R73.9 Hyperglycemia, unspecified; E78.5 Hyperlipidemia, unspecified; R94.31 Abnormal electrocardiogram [ECG] [EKG]; Z20.822 Contact with and (suspected) exposure to COVID-19; I69.354 Hemiplegia and hemiparesis following cerebral infarction affecting left non-dominant side; Z95.0 Presence of cardiac pacemaker; F17.210 Nicotine dependence, cigarettes, uncomplicated
CPT/HCPCS: 36415; 71045; 80053; 82550; 83605; 83690; 83880; 84484; 85025; 85610; 85730; 87040; 87400; 93005; 99284; J0153; J0456; J0696; J2405; J7030; J7050; U0002